=== PATIENT | female | born 1990 | race Caucasian/White ===

== ENCOUNTER 2021-04-21 11:43 | Outpatient (CLI) | payer OTHER, SELFPAY ==
--- NOTE | ~2021-04-21 | CT_ITS ---
EXAMINATION: CT brain wo con EXAM DATE: 04/21/2021 12:04 INDICATION: Headache behind the eyes. TECHNIQUE: Spiral CT of the head was performed without contrast. Axial, coronal and sagittal images were reviewed. The dose-length product (DLP) for this examination was 599.57 mGy-cm. The exposure w as tailored according to patient size, and iterative reconstruction (ASIR) was used as additional dos e reduction technique. There is no prior study for comparison. FINDINGS: There is no acute intraparenchymal hemorrhage. No evidence of intraparenchymal brain mass lesion. No evidence of acute infarction. There is no mass effect or midline shift. The ventricles are normal in size. There are no extra-axial collections. There are no acute calvarial fractures. T he orbits are unremarkable. Soft tissue is unremarkable. Completely opacified left sphenoid sinus, mild to moderate bilateral ethmoid and left maxillary sinus mucoperiosteal thickening. No mastoid opa city. IMPRESSION: 1. No acute intracranial findings. 2. Completely opacified left sphenoid sinus, mild to moderate bilateral ethmoid and left maxillary s inus mucoperiosteal thickening. Reviewed, dictated and finalized at location A. IMPRESSION: 1. No acute intracranial findings. 2. Completely opacified left sphenoid sinus, mild to moderate bilateral ethmoi d and left maxillary sinus mucoperiosteal thickening.
== END 2021-04-21 11:44 ==
PROVIDERS: PCP Family Medicine; Visit Provider Family Medicine
DX: R51.9 Headache, unspecified (principal); J32.4 Chronic pansinusitis
CPT/HCPCS: 70450

== ENCOUNTER 2023-02-24 20:54 | Emergency (ER) | payer OTHER, SELFPAY ==
--- NOTE | ~2023-02-24 | CT_ITS ---
EXAMINATION: CT abdomen pelvis w con INDICATION: Right-sided abdominal pain TECHNIQUE: Computed tomographic images of the abdomen and pelvis were obtained after the administrati on of 100 cc of Omnipaque 350 intravenous contrast. The dose-length product (DLP) was 1483.87 mGy-cm. Automated exposure control and iterative reconstruction technique were employed. COMPARISON: None available FINDINGS: The lung bases are clear. The heart size is normal. The liver, spleen, pancreas, gallbladde r, and adrenal glands are normal. The kidneys are unremarkable. An IVC filter is noted. No pathologic ally enlarged abdominal or pelvic lymph nodes are identified. No free intraperitoneal gas or evidence of bowel obstruction. The appendix is normal. An IUD is noted in expected position. IMPRESSION: 1. No CT correlate for the patient's symptoms. Reviewed, dictated and finalized at location F.
[2023-02-24 20:56] VITALS: BP 124/70; PULSE 72; RESP 15; TEMP 36.6; O2SAT 100
[2023-02-24 21:19] VITALS: PULSE 66; RESP 15; TEMP 36.3; O2SAT 96
--- NOTE | 2023-02-24 21:31 | PC.NURSE ---
Patient's bedside was inconclusive. Beta HCG added.
[2023-02-24 21:36] LABS: Appearance Urine Clear (Clear); Bacteria Urine None Seen /hpf; Bilirubin Urine Negative (Negative); Blood Urine Negative (Negative); Color Urine Yellow (Yellow); Glucose Urine UA Negative (Negative); Ketones Urine Negative (Negative); Leukocyte Esterase Ur Trace LEU/UL (Negative); Nitrate Urine Negative (Negative); Non Pathogenic Casts 0-2; Protein Urine Negative (Negative); RBC Urine 0-2 /hpf (0-2); Specific Grav Ur 1.023 (1.001-1.035); Squamous Epithelial Cell Urine None seen /hpf (Few); WBC Urine 0-5 /hpf; pH Urine 6.5 (5.0-9.0)
[2023-02-24 21:40] LABS: Add Urine Microscopic? YES
--- NOTE | 2023-02-24 21:52 | ED.ABDPAIN ---
HPI - Abdominal Pain General Chief Complaint: Abdominal Pain Stated Complaint: abdominal/flank pain Time Seen by Provider: 02/24/23 21:02 History of Present Illness HPI narrative: 32-year-old female presenting with right upper/lower quadrant pain, and some flank pain, she also feels like she has been going to the bathroom more than usual, she did also just finish a course of Keflex and Bactrim. Related Data Allergies Allergy/AdvReac Type Severity Reaction Status Date / Time No Known Allergies Allergy Verified 02/24/23 20:59 Review of Systems Review of Systems: CONST: No fever. HEENT: No sore throat C/V: No chest pain RESP: No cough GI: Reports abdominal pain, nausea : Increased frequency M/S: No joint pain. SKIN: No rash. NEURO: [No headache or focal numbness or weakness] PSYCH: [No depression] Exam Narrative: EXAMINATION OF ORGAN SYSTEMS/BODY AREAS: Constitutional: Vital signs per nursing GENERAL:[No acute distress, non-toxic appearing.] HEAD: Normal with no signs of head trauma. EYES: EOMI, conjunctiva normal ENT: Hearing grossly intact LUNGS: Nonlabored breathing. HEART: [Regular rate and rhythm] ABD: [Soft], slightly tender to palpation right upper quadrant and lower quadrant, some tenderness right flank EXT: Normal range of motion SKIN: [No rashes or lesions.] NEURO: [Alert and oriented x 3. No gross focal sensory or strength deficits.] PSYCH: Normal affect Course Vital Signs Vital signs: Vital Signs Temperature 97.8 F 02/24/23 20:56 Pulse Rate 72 02/24/23 20:56 Respiratory Rate 15 02/24/23 20:56 Blood Pressure 124/70 02/24/23 20:56 Pulse Oximetry 100 02/24/23 20:56 Oxygen Delivery Room Air 02/24/23 20:56 Temperature 97.9 F 02/24/23 23:47 Pulse Rate 61 02/24/23 23:47 Respiratory Rate 15 02/24/23 23:47 Blood Pressure 122/81 02/24/23 23:47 Pulse Oximetry 100 02/24/23 23:47 Oxygen Delivery Room Air 02/24/23 20:56 MDM - Abdominal Pain MDM Narrative Medical decision making narrative: Electronic medical record was reviewed. Patient presented to the ED with complaint of [abdominal pain and nausea with increased urinary frequency]. Vitals [were within acceptable limits]. Physical exam revealed [tenderness to palpation in right abdomen]. Based on the patient's history and physical exam, my differential includes but is not limited to [gastritis, gastroenteritis, cholecystitis, pancreatitis, appendicitis, UTI/pyelonephritis though this seems less likely given she has already completed 2 courses of antibiotics that should be effective for pyelonephritis]. [IV access was established by nursing staff. Patient was given zofran, Toradol]. CBC, BMP, lipase, LFTs, bilirubin and alk phos were obtained. Labs were pertinent for unremarkable labs. [Decision was made to obtain a CT-abdomen to evaluate for acute abdominal process. CT-abdomen is unremarkable for acute intra-abdominal process, no signs of hydronephrosis, cholecystitis, appendicitis.] On reevaluation, the patient states that they are feeling better. There were no witnessed episodes of vomiting in the emergency department. They are not complaining of any new abdominal pain. Repeat examination did not show any significant guarding or rebound. No new tenderness. At this time I do not feel there is any further emergent treatment to be provided. The patient was given strict return precautions, if they are to develop any worsening abdominal pain, vomiting, or blood in the vomit they are to return to the emergency department immediately. Patient verbally acknowledges understanding these directions. [The patient was informed of the above diagnostic test findings.] I have ordered a urine culture. They will be discharged home [with prescriptions]. They were advised to follow-up with [their PCP] in 2 days. The patient feels that this is appropriate medical decision making and verbalizes an understanding of the discharge inst
[2023-02-24] MEDS: ONDANSETRON INJ 4 MG/2 ML VIAL IV PUSH (21:53)
[2023-02-24 22:27] LABS: Alanine Aminotransferase 27 U/L (6-35); Albumin Level 4.2 g/dL (3.5-5.1); Alkaline Phosphatase 71 U/L (38-126); Anion Gap 6 mmol/L (8-16); Aspartate Amino Transferase 20 U/L (14-36); Bilirubin,Total 0.4 mg/dL (0.2-1.3); Blood Urea Nitrogen 15 mg/dL (7-17); Calcium 9.1 mg/dL (8.4-10.2); Carbon Dioxide 26 mmol/L (22-30); Chloride 102 mmol/L (98-107); Estimated CRCL calculation 135 ml/min; Estimated Glomerular Filt Rate > 60; Glucose 100 mg/dL (65-110); Lipase 81 U/L (23-300); Potassium 4.4 mmol/L (3.4-5.0); Sodium 134 mmol/L (137-145)
[2023-02-24 22:37] LABS: Beta HCG Quantitative < 2.39 mIU/ML
[2023-02-24 23:10] VITALS: BP 125/90; PULSE 72; RESP 16; O2SAT 100
[2023-02-24] MEDS: KETOROLAC 15 MG/ML VIAL (*BKC) IV PUSH (23:30)
[2023-02-24 23:47] VITALS: BP 122/81; PULSE 61; RESP 15; TEMP 36.6; O2SAT 100
[2023-02-24 23:58] LABS: Basophils Absolute Auto 0.1 K/mm3 (0.0-0.1); Basophils Percent Auto 0.8 % (0.2-1.2); Eosinophils Absolute Auto 0.3 K/mm3 (0-0.3); Eosinophils Percent Auto 3.5 % (0-4.4); Hematocrit 37.6 % (37.0-47.0); Hemoglobin 12.2 g/dL (12.0-15.0); Immature Granulocyte Absolute 0.03 K/mm3 (0.00-0.031); Immature Granulocyte Percent A 0.4 % (0-0.5); Lymphocytes Absolute Auto 2.75 K/mm3 (0.9-3.2); Lymphocytes Percent Auto 33.4 % (18.3-44.2); Mean Corpuscular HGB Conc 32.4 g/dl (32-36); Mean Corpuscular Hemoglobin 29.2 pg (26-34); Mean Platelet Volume 10.3 fl (7.4-10.4); Monocytes Absolute Auto 0.9 K/mm3 (0.1-0.6); Monocytes Percent Auto 10.8 % (2.6-8.5); Neutrophils Absolute Auto 4.2 K/mm3 (1.3-6.7); Neutrophils Percent Auto 51.1 % (45.5-73.1); Platelet Count Result 318 k/mm3 (150-375); Red Blood Count 4.18 M/mm3 (4.2-5.4); Red Cell Distribution Width 12.6 % (11.5-14.5); White Blood Count 8.2 K/mm3 (4.5-10.0)
== END 2023-02-24 23:48 | disposition home or self-care (01) ==
PROVIDERS: Emergency Provider Emergency Medicine; PCP Family Medicine
DX: R10.11 Right upper quadrant pain (principal); R10.31 Right lower quadrant pain; R11.0 Nausea
CPT/HCPCS: 36415; 74177; 80053; 81001; 83690; 84702; 85025; 96374; 96375; 99284; J1885; J2405; Q9967

== ENCOUNTER 2023-06-21 01:40 | Emergency (ER) | payer OTHER, SELFPAY ==
--- NOTE | ~2023-06-21 | CT_ITS ---
CT of the Abdomen and Pelvis: Indication: Abdominal pain Technique: 2.5 mm axial scans were obtained through the abdomen and pelvis following intravenous adm inistration of 100 cc of Omnipaque 350. Dose reduction technique was used on this scan by utilizing a utomated exposure control and iterative reconstruction technique. The dose-length product (DLP) was 1 409.15 mGy-cm. COMPARISON: 02/24/2023 Findings: Scans through the lung bases are unremarkable. The liver, spleen, pancreas, gallbladder, adrenals and kidneys are within normal limits. No evidence of aortic aneurysm. IVC filter in place. No lymphadenopathy. No bowel obstruction. Probable under distention of transverse colon rather than wall thickening. No a bscess or free air. No evidence for appendicitis. Images through the pelvis were performed. Urinary bladder unremarkable. IUD in place. 3.7 cm right ad nexal cyst present. No ascites. Impression: 3.7 cm right ovarian cyst. Suspected under distention of transverse colon rather than wall thickening. Correlate for any possibi lity of infectious/inflammatory colitis. Reviewed, dictated and finalized at [facility]. BOSS Impression: 3.7 cm right ovarian cyst. Suspected under distention of transverse colon rather than wall thickening. Cor relate for any possibility of infectious/inflammatory colitis.
[2023-06-21 01:44] VITALS: BP 145/81; PULSE 88; RESP 20; TEMP 36.9; O2SAT 98
--- NOTE | 2023-06-21 02:47 | ECG_ITS ---
Measurements Intervals [place] Rate: 78 P: -33 [place]: 130 QRS: -6 QRSD: 91 T: -3 QT: 377 QTc: 431 Interpretive Statements SINUS RHYTHM DELAYED PRECORDIAL R/S TRANSITION NONSPECIFIC T-WAVE ABNORMALITY- ANT/INF LEADS BASELINE ARTIFACT- I, II, III, AVR, AVF, V1 BORDERLINE ECG NO PREVIOUS ECG AVAILABLE FOR COMPARISON Electronically Signed On 06-21-2023 6:26:35 [employer] by Norm Mcdaniels D.O.
[2023-06-21 02:48] VITALS: BP 123/89; PULSE 79; RESP 13; TEMP 36.8; O2SAT 99
--- NOTE | 2023-06-21 02:49 | PC.NURSE ---
Patient states that she is COVID positive
[2023-06-21 03:10] LABS: Basophils Percent Auto 0.3 % (0.2-1.2); Eosinophils Absolute Auto 0.2 K/mm3 (0-0.3); Eosinophils Percent Auto 1.6 % (0-4.4); Hematocrit 42.1 % (37.0-47.0); Hemoglobin 13.7 g/dL (12.0-15.0); Immature Granulocyte Absolute 0.03 K/mm3 (0.00-0.031); Immature Granulocyte Percent A 0.3 % (0-0.5); Lymphocytes Percent Auto 15.5 % (18.3-44.2); Mean Corpuscular HGB Conc 32.5 g/dl (32-36); Mean Corpuscular Hemoglobin 28.8 pg (26-34); Mean Corpuscular Volume 88.6 fl (80-100); Mean Platelet Volume 9.7 fl (7.4-10.4); Monocytes Absolute Auto 0.9 K/mm3 (0.1-0.6); Monocytes Percent Auto 7.8 % (2.6-8.5); Neutrophils Absolute Auto 8.7 K/mm3 (1.3-6.7); Neutrophils Percent Auto 74.5 % (45.5-73.1); Platelet Count Result 300 k/mm3 (150-375); Red Blood Count 4.75 M/mm3 (4.2-5.4); Red Cell Distribution Width 12.2 % (11.5-14.5); White Blood Count 11.6 K/mm3 (4.5-10.0)
[2023-06-21 03:23] LABS: Alanine Aminotransferase 31 U/L (6-35); Albumin Level 2.4 g/dL (3.5-5.1); Alkaline Phosphatase 83 U/L (38-126); Anion Gap 9 mmol/L (8-16); Aspartate Amino Transferase 19 U/L (14-36); Bilirubin,Total 0.4 mg/dL (0.2-1.3); Blood Urea Nitrogen 7 mg/dL (7-17); Carbon Dioxide 23 mmol/L (22-30); Chloride 107 mmol/L (98-107); Estimated CRCL calculation 133 ml/min; Estimated Glomerular Filt Rate > 60; Glucose 101 mg/dL (65-110); Lipase 82 U/L (23-300); Potassium 3.8 mmol/L (3.4-5.0); Sodium 139 mmol/L (137-145)
[2023-06-21 03:29] VITALS: BP 116/73; PULSE 78; RESP 18; O2SAT 100
[2023-06-21] MEDS: SODIUM CHLORIDE 0.9% IV 1,000 ML 999 ML IV CONT (03:50)
[2023-06-21] MEDS: MORPHINE SULFATE (*CRX) 4 MG/ML INJ IV PUSH (03:51)
[2023-06-21] MEDS: ONDANSETRON INJ 4 MG/2 ML VIAL IV PUSH (03:51)
--- NOTE | 2023-06-21 03:56 | ED.GENADULT ---
HPI - General Adult General Chief complaint: Abdominal Pain Stated complaint: abd pain Time Seen by Provider: 06/21/23 03:26 History of Present Illness HPI narrative: 33-year-old female who presents to the emergency department with chief complaint abdominal pain. Patient reports she was recently diagnosed with COVID-19 reports that she started having pain in her upper abdomen patient reports it does radiate to her back patient reports he has had multiple bouts of diarrhea with this as well. Related Data Allergies Allergy/AdvReac Type Severity Reaction Status Date / Time No Known Allergies Allergy Verified 02/24/23 20:59 Review of Systems Review of Systems: A 10 system review of systems was completed on the patient and is negative except for what is stated in the HPI. Nursing and ancillary documentation was reviewed. Exam Narrative: GENERAL: Well-appearing, well-nourished, and in no acute distress. HEAD: Normocephalic, atraumatic. EYES: PERRLA and EOMI. ENT: Nares clear, no rhinorrhea or epistaxis. Mucous membranes moist. NECK: Supple. CHEST: Clear to auscultation. No respiratory distress. HEART: Regular rate and rhythm. No murmur heard. Normal peripheral pulses. ABDOMEN: Soft, tenderness to palpation in the epigastric region, nondistended, normal active bowel sounds. EXTREMITIES: Normal range of motion. No edema. SKIN: Warm, dry, no rash. NEURO: No focal deficits. Alert and oriented x3. PSYCH: Normal mood and affect. Course Vital Signs Vital signs: Vital Signs Temperature 36.9 C 06/21/23 01:44 Pulse Rate 88 06/21/23 01:44 Respiratory Rate 20 06/21/23 01:44 Blood Pressure 145/81 H 06/21/23 01:44 Pulse Oximetry 98 06/21/23 01:44 Temperature 36.8 C 06/21/23 02:48 Pulse Rate 73 06/21/23 05:16 Respiratory Rate 18 06/21/23 05:16 Blood Pressure 123/94 H 06/21/23 05:16 Pulse Oximetry 99 06/21/23 05:16 Medical Decision Making [facility] Narrative Medical decision making narrative: Differential diagnosis includes viral syndrome, ovarian cyst, appendicitis, gastroenteritis, diverticulitis Laboratory studies were obtained on the patient showed a white count of 11.6 electrolytes are within normal limits lipase was normal CT scan of the abdomen pelvis showed a ovarian cyst on the right as well as under distended bowel Patient is feeling much better still having some cramping patient discharged with prescription for Bentyl and Zofran Vital Signs Vital Signs: Vital Signs Temperature 36.9 C 06/21/23 01:44 Pulse Rate 88 06/21/23 01:44 Respiratory Rate 20 06/21/23 01:44 Blood Pressure 145/81 H 06/21/23 01:44 Pulse Oximetry 98 06/21/23 01:44 Temperature 36.8 C 06/21/23 02:48 Pulse Rate 73 06/21/23 05:16 Respiratory Rate 18 06/21/23 05:16 Blood Pressure 123/94 H 06/21/23 05:16 Pulse Oximetry 99 06/21/23 05:16 Lab Data 06/21/23 03:05 06/21/23 03:05 Labs: Lab Results 06/21/23 Range/Units 03:05 WBC 11.6 H (4.5-10.0) K/mm3 RBC 4.75 (4.2-5.4) M/mm3 Hgb 13.7 (12.0-15.0) g/dL Hct 42.1 (37.0-47.0) % MCV 88.6 (80-100) fl MCH 28.8 (26-34) pg MCHC 32.5 (32-36) g/dl RDW 12.2 (11.5-14.5) % Plt Count 300 (150-375) k/mm3 MPV 9.7 (7.4-10.4) fl Immature Gran % (Auto) 0.3 (0-0.5) % Neut % (Auto) 74.5 H (45.5-73.1) % Lymph % (Auto) 15.5 L (18.3-44.2) % [place] % (Auto) 7.8 (2.6-8.5) % Eos % (Auto) 1.6 (0-4.4) % Baso % (Auto) 0.3 (0.2-1.2) % Lymph # (Auto) 1.80 (0.9-3.2) K/mm3 [place] # (Auto) 0.9 H (0.1-0.6) K/mm3 Eos # (Auto) 0.2 (0-0.3) K/mm3 Baso # (Auto) 0.0 (0.0-0.1) K/mm3 Abs Immat Gran (auto) 0.03 (0.00-0.031) K/mm3 Absolute Neuts (auto) 8.7 H (1.3-6.7) K/mm3 Absolute Nucleated RBC 0.0 (0.0-0.012) K/mm3 Nucleated RBC % 0.0 (0.0-0.2) % Sodium 139 (137-145) mmol/L Potassium 3.8 (3.4-5.0) mmol/L Chloride 107 (98-107) mmol/L
[2023-06-21 05:16] VITALS: BP 123/94; PULSE 73; RESP 18; O2SAT 99
[2023-06-21 06:32] VITALS: BP 121/74; PULSE 69; RESP 13; TEMP 36.7; O2SAT 99
== END 2023-06-21 06:33 | disposition home or self-care (01) ==
PROVIDERS: Emergency Provider Emergency Medicine; PCP Family Medicine
DX: R10.9 Unspecified abdominal pain (principal); R19.7 Diarrhea, unspecified; N83.209 Unspecified ovarian cyst, unspecified side
CPT/HCPCS: 36415; 74177; 80053; 81025; 83690; 85025; 93005; 96361; 96374; 96375; 99284; J2270; J2405; J7030; Q9967

== ENCOUNTER 2023-08-24 07:32 | Emergency (ER) | payer OTHER, SELFPAY ==
[2023-08-24 07:41] VITALS: BP 136/84; PULSE 69; RESP 18; TEMP 36.8; O2SAT 100
--- NOTE | 2023-08-24 07:45 | ED.ALLEREA ---
HPI - Allergic Reaction General Chief complaint: Allergic Reaction Stated complaint: ?ALLERGIC RX AFTER CONTRAST YESTERDAY Time Seen by Provider: 08/24/23 07:38 History of Present Illness HPI narrative: Patient had CT with contrast yesterday, she has had this in the past without issues, however afterwards she said she was not feeling all the way right, when she woke up this morning she felt like her hands are more swollen than usual, she felt itching everywhere, and a sensation of tongue being bigger than usual. She had a similar sensation after she had morphine in the past for which she is allergic to. No trouble breathing, no throat tightness. no nausea or vomiting or diarrhea. No other new medications or foods. No chest pain. Related Data Allergies Allergy/AdvReac Type Severity Reaction Status Date / Time morphine Allergy Swelling Verified 08/24/23 07:43 Review of Systems Review of Systems: All systems reviewed & are unremarkable except as noted in HPI and below Exam Narrative: EXAMINATION OF ORGAN SYSTEMS/BODY AREAS: Constitutional: Vital signs per nursing GENERAL:[No acute distress, non-toxic appearing.] HEAD: Normal with no signs of head trauma. EYES: EOMI, conjunctiva normal ENT: Hearing grossly intact; normal-sounding voice. No evidence of swelling to lips or oropharynx. LUNGS: Nonlabored breathing. clear to auscultation bilaterally. HEART: [Regular rate and rhythm] ABD: [Soft], [nontender to palpation] EXT: Normal range of motion; Very slight swelling to both hands and feet SKIN: no obvious rashes or urticaria NEURO: [Alert and oriented x 3. No gross focal sensory or strength deficits.] PSYCH: Normal affect Course Vital Signs Vital signs: Vital Signs Temperature 98.2 F 08/24/23 07:41 Pulse Rate 69 08/24/23 07:41 Respiratory Rate 18 08/24/23 07:41 Blood Pressure 136/84 08/24/23 07:41 Pulse Oximetry 100 08/24/23 07:41 Temperature 98 F 08/24/23 09:32 Pulse Rate 70 08/24/23 09:32 Respiratory Rate 18 08/24/23 09:32 Blood Pressure 120/80 08/24/23 09:32 Pulse Oximetry 100 08/24/23 09:32 MDM - Allergic Reaction MDM Narrative Medical decision making narrative: MEDICAL DECISION MAKING AND COURSE IN THE ED WITH INTERPRETATION/REVIEW OF DIAGNOSTIC STUDIES: Electronic medical record was reviewed. Patient presented to the ED with a complaint of [possible allergic reaction]. Vitals [were within acceptable limits]. Physical exam revealed [ well-appearing patient with slightly swollen hands, without evidence of airway compromise, abdominal tenderness, or anaphylaxis]. Based on the patient's history and physical exam, my differential includes but is not limited to [allergic reaction, contact dermatitis, angioedema]. [Patient was given claritin, famotidine, steroids]. On re-evaluation, the patient isn't feeling much better; no new symptoms. I will order a dose of benadryl. On re-eval she again does not feel much better but also doesn't feel worse. She has not had worsening of symptoms here and she would like to go home at this time, she has normal VS and is in NAD, overall quite well-appearing, I do feel she is stable for discharge and will go home with claritin, famotidine, and prednisone and followup with PCP, return for further issues. I have let her know to make sure to give warning next time she needs a CT with contrast as she will need pre-treatment. I will also give her a rx for epi-pen in case symptoms return ore worsen. Patient verbalizes understanding. Discharge Plan Discharge Clinical Impression: Allergic reaction Patient Disposition: Home, Self-Care Condition: Stable Instructions: Antibiotic Form, General Allergic Reaction (ED) Additional Instructions: Please follow up with your doctor; you can always return for any further issues or if they worsen, especially if you have any difficulties breathing. Prescriptions: New prednisone 20
[2023-08-24] MEDS: LORATADINE 10 MG TABLET PO (07:50)
[2023-08-24] MEDS: FAMOTIDINE 20 MG TABLET PO (07:50)
[2023-08-24] MEDS: diphenhydrAMINE HCl CAP 25 MG CAPSULE 50 MG PO (08:59)
[2023-08-24 09:00] VITALS: BP 126/83; PULSE 68; RESP 18; O2SAT 99
[2023-08-24 09:32] VITALS: BP 120/80; PULSE 70; RESP 18; TEMP 36.6; O2SAT 100
== END 2023-08-24 09:33 | disposition home or self-care (01) ==
PROVIDERS: Emergency Provider Emergency Medicine; PCP Family Medicine
DX: T78.40XA Allergy, unspecified, initial encounter (principal); R22.33 Localized swelling, mass and lump, upper limb, bilateral; X58.XXXA Exposure to other specified factors, initial encounter
CPT/HCPCS: 99283; A9270; J8540

== ENCOUNTER 2024-11-19 16:04 | Emergency (ER) | payer OTHER, SELFPAY ==
[2024-11-19] VITALS (7 sets, daily range): BP systolic 109–139; BP diastolic 58–86; PULSE 60–67; RESP 13–20; TEMP 36.5; O2SAT 95–100
--- NOTE | ~2024-11-19 | US_ITS ---
EXAMINATION: US venous doppler LE RT DATE: 11/19/2024 17:00 INDICATION: Right lower limb pain TECHNIQUE: Grayscale ultrasound images without and with compression and Doppler ultrasound images of the right lower extremity veins were obtained. COMPARISON: None. FINDINGS: Occlusive deep venous thrombosis with no flow on color Doppler within the noncompressible right poste rior tibial and peroneal veins at the calf. The visualized portions of right common femoral vein, pro eva (deep) femoral vein, femoral vein, popliteal vein, gastrocnemius vein and greater saphenous vei n outflow are patent. IMPRESSION: 1. [id number] deep venous anastomosis in the right posterior tibial and peroneal veins. Dr. Felicita stephens discussed these findings with Dr. Montgomery at 5:10 PM. Reviewed, dictated and finalized at location B. IMPRESSION: 1. [id number] deep venous anastomosis in the right posterior tibial and pe roneal veins. Dr. Pozo discussed these findings with Dr. Montgomery at 5:10 PM.
--- NOTE | ~2024-11-19 | CT_ITS ---
Clinical Indication: DVT, pulmonary embolus CT Scan of the Chest with Contrast: Technique: Contiguous sections were acquired throughout the chest after intravenous administration of 100 cc of Omnipaque 350. Dose reduction technique was used on this scan by utilizing automated expos ure control and iterative reconstruction technique. The dose-length product (DLP) was 572.05 mGy-cm. Findings: There is no evidence of any significant mediastinal, hilar or axillary lymphadenopathy. There is no f illing defect in the pulmonary arterial tree to suggest pulmonary embolus. There is no evidence of ao rtic dissection or aneurysm. There is no evidence of pleural or pericardial effusion. The lungs are clear. No pulmonary nodules or infiltrates are noted. Images through the upper abdomen reveal no abnormalities. Impression: No evidence of pulmonary embolus, aortic dissection, or aortic aneurysm. Clear lungs. Reviewed, dictated and finalized at [facility]. Impression: No evidence of pulmonary embolus, aortic dissection, or aortic aneurysm. Clear lungs.
[2024-11-19 17:28] LABS: Basophils Absolute Auto 0.1 K/mm3 (0.0-0.1); Basophils Percent Auto 0.8 % (0.2-1.2); Eosinophils Absolute Auto 0.3 K/mm3 (0-0.3); Eosinophils Percent Auto 2.8 % (0-4.4); Hematocrit 40.3 % (37.0-47.0); Immature Granulocyte Absolute 0.04 K/mm3 (0.00-0.031); Immature Granulocyte Percent A 0.4 % (0-0.5); Lymphocytes Absolute Auto 2.65 K/mm3 (0.9-3.2); Lymphocytes Percent Auto 28.7 % (18.3-44.2); Mean Corpuscular HGB Conc 32.3 g/dl (32-36); Mean Corpuscular Hemoglobin 28.5 pg (26-34); Mean Corpuscular Volume 88.4 fl (80-100); Mean Platelet Volume 9.8 fl (7.4-10.4); Monocytes Absolute Auto 0.7 K/mm3 (0.1-0.6); Monocytes Percent Auto 7.4 % (2.6-8.5); Neutrophils Absolute Auto 5.5 K/mm3 (1.3-6.7); Neutrophils Percent Auto 59.9 % (45.5-73.1); Platelet Count Result 330 k/mm3 (150-375); Red Blood Count 4.56 M/mm3 (4.2-5.4); Red Cell Distribution Width 12.4 % (11.5-14.5); White Blood Count 9.2 K/mm3 (4.5-10.0)
--- NOTE | 2024-11-19 17:30 | ECG_ITS ---
Test Date: 2024-11-19 17:51:35 Measurements Intervals [place] Rate: 69 P: 12 [place]: 166 QRS: -17 QRSD: 89 T: -6 QT: 381 QTc: 411 Interpretive Statements SINUS RHYTHM VOLTAGE CRITERIA FOR LVH BORDERLINE R WAVE PROGRESSION, ANTERIOR LEADS INFERIOR INFARCT, AGE INDETERMINATE BORDERLINE T WAVE ABNORMALITY- ANTERIOR LEADS BASELINE ARTIFACT- I, II, III, AVR, AVL, AVF, V1-V2 ABNORMAL ECG No previous ECG available for comparison Electronically Signed On 11-19-2024 20:11:21 CDT by Norm Mcdaniels D.O.
[2024-11-19 17:44] LABS: Alanine Aminotransferase 22 U/L (6-35); Albumin Level 4.3 g/dL (3.5-5.1); Alkaline Phosphatase 87 U/L (38-126); Anion Gap 8 mmol/L (4-12); Aspartate Amino Transferase 16 U/L (14-36); Bilirubin,Total 0.5 mg/dL (0.2-1.3); Blood Urea Nitrogen 17 mg/dL (7-17); Calcium 9.3 mg/dL (8.4-10.2); Carbon Dioxide 25 mmol/L (22-30); Chloride 104 mmol/L (98-107); Estimated CRCL calculation 126 ml/min; Estimated Glomerular Filt Rate > 60; Glucose 95 mg/dL (65-110); Potassium 4.4 mmol/L (3.4-5.0); Prothrombin Time 13.2 Seconds (11.1-14.7); Sodium 137 mmol/L (137-145)
[2024-11-19 17:45] LABS: Partial Thromboplastin Time 26.4 Seconds (22.3-36.8)
[2024-11-19 17:51] LABS: Troponin I < 0.012 ng/mL (0.000-0.034)
--- OUTSIDE RECORDS SUMMARY | 2024-11-19 18:07 | XMS_ITS | Clinical Summary ---
Author Organization [facility] Address [address] [place] [address] Phone Care Team Providers Care Swimming Pool Serviceperson Name Role Phone Bong Garcia MD Primary Care Provider [phone] Payton Francisco DO Unavailable Unavailable Allergies No known active allergies Medications Eliquis 5 MG Tablet 2 times daily. 02/01/2023 Active Family History Relation Name Status Comments Brother Alive Child Alive Father Alive Mother Alive Social History Tobacco Use Types Packs/Day Years Used Date Smoking Tobacco: Never Smokeless Tobacco: Never Alcohol Use Standard Drinks/Week Comments Never 0 (1 standard drink = 0.6 oz pur e alcohol) Comments Unknown Sex and Gender Information Value Date Recorded Sex Assigned at Not on file Legal Sex Female 9:06 AM CDT Gender Identity Not on file Sexual Orientation Not on file Last Filed Vital Signs Vital Sign Reading Time Taken Comments Blood Pressure 110/64 02/02/2023 9:01 AM CDT Pulse 57 02/02/2023 9:01 AM CDT Temperature 36.4 C (97.6 F) 02/02/2023 9:01 AM CDT Respiratory Rate 18 02/02/2023 9:01 AM CDT Oxygen Saturation 98% 02/02/2023 9:01 AM CDT Inhaled Oxygen Concentration - - Weight 107.6 kg (237 lb 3.2 oz) 02/02/2023 9:01 AM CDT Height 162.6 cm (5' 4 ) 02/02/2023 9:01 AM CDT Body Mass Index 40.72 02/02/2023 9:01 AM CDT Plan of Treatment Health Maintenance Due Date Last Done Comments Hepatitis C Virus (HCV) Screening 1989 Pap Smear 2010 Cervical Cancer Screening (CCS) 2019 HPV/Cotest 2019 Influenza Immunization (#1) 2024 11/0 10/2020, 05/12/2020, 05/12/2019 SARS-COV-2 Immunization (2023- season) 2024 Respiratory Syncytial Virus (RSV) Immunization (Adult) (1 - 1-dose 75+ series) 2064 Hepatitis B Immunization Completed 000, 11/02/1999, 08/30/1999 DTaP/Tdap/Td Immunization Discontinued 2020, 03/16/1994, 09/19/1990, Additional history exists TdaP Immunization Completed 05/27/2021 Meningococcal Immunization (ACWY) Aged Out No longer eligible based on patient's age to complete this topic Pneumococcal Immunization Combined Aged Out No longer eligible based on patient's age to complete this topic Rotavirus Immunization Aged Out No lo nger eligible based on patient's age to complete this topic Insurance [id number] [place] [id number] MEDICAID AETNA [facility] Care Teams Swimming Pool Serviceperson Relationship Specialty [place] [id number] [place] [address] PCP - General Family Medicine 01/06/23 [place] [id number] [place] [address] Family Medicine 01/06/23
--- OUTSIDE RECORDS SUMMARY | 2024-11-19 18:07 | XMS_ITS | Referral Summary ---
Author Organization [facility] Address [address] [place] [address] Care Team Providers Care Websphere Process Server Developer Name Role Phone Bong Garcia MD Primary Care Provider [phone]- [phone] Allergies Active Allergy Reactions Criticality Noted Date Comments Iodinated Contrast Media Swelling High 11/30/2023 Morphine Swelling,Rash Medium 06/29/2023 Medications apixaban (ELIQUIS) 5 mg tabletIndications: DVT r leg, PE 3 years ago Take 1 tablet (5 mg total) by mouth 2 (two) times a day 12/28/19 23 Active traZODone (DESYREL) 100 mg tabletIndications: Sleep Take 1 tablet (100 mg total) by mouth nightly as needed for sleep 02/16/20 20 Active levonorgestreL (MIRENA) IUDIndications:Pre gnancy Contraception 1 each by intrauterine route once Placed November 2022 Active ibuprofen 200 mg tab/capIndications :Anti-inflammatory ,Pain Take 2 tablet/capsule (400 mg total) by mouth every 8 (eight) hours as needed for pain Active albuterol HFA (PROVENTIL HFA,VENTOLIN HFA,PROAIR HFA) 90 mcg/actuation inhalerIndications :Chest Congestion Inhale every 4 (four) hours as needed for wheezing 12/14/19 24 Active phenazopyridine (PYRIDIUM) 100 mg tablet Take 1 tablet (100 mg total) by mouth 3 (three) times a day as needed for urinary pain 30 tablet 2 02/06/20 Active ondansetron ODT (ZOFRAN-ODT) 4 mg disintegrating tablet Take 1 tablet (4 mg total) by mouth every 8 (eight) hours as needed for nausea or vomiting 20 tablet 03/06/20 Active famotidine (PEPCID) 20 mg tablet Take 1 tablet (20 mg total) by mouth 2 (two) times a day 30 tablet 03/06/20 Active Additional Information Patient not taking.Reported on 04/01/2024 Active Problems Problem Noted Date Diagnosed Date Saddle 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, unspecified chronicity 01/02/2024 Obesity, morbid 01/02/2024 Presence of IVC filter 12/19/2023 Chronic venous insufficiency 07/11/2023 Loose body of left knee 05/25/2023 Resolved Problems Problem Noted Date Diagnosed Date Resolved Date Therapeutic drug monitoring 05/16/2019 01/13/2020 Acute deep vein thrombosis ( DVT) of lower extremity, unspecified laterality, unspecified vein 05/16/2019 01/13/2020 Acute pulmonary embolism, un specified pulmonary embolism type, unspecified whether acute cor pulmonale present 05/16/2019 01/13/2020 Immunizations Immunization Administration Dates Next Due DTaP 03/16/1994, 1,1989,08/04,1989 Hep B, Adolescent or Pediatric 04/25/2000,1999,08/30/1999 HiB 06/26/1990 Influenza, Quadrivalent, Spl it, Preservative Free, Intramuscular 05/27/2021,05/12/2019 Influenza, Unspecified 05/12/2020 MMR 03/16/1994,06/26/1990,03/16/1990 OPV 03/16/1994, 1,1989,05/29 Tdap 05/27/2021,12/05/2018 Social History Tobacco Use Types Packs/Day Years Used Date Smoking Tobacco: Never Passive Smoke Exposure: Never Smokeless Tobacco: Never Tobacco Cessation:Counseling Given: Not Answered Alcohol Use Standard Drinks/Week Comments Never 0 (1 standard drink = 0.6 oz pur e alcohol) AUDIT-C Answer Date Recorded Q1: How often do you have a drink containing alc ohol? Monthly or less 12/20/2023 Q2: How many drinks containi ng alcohol do you have on a typical day when you are drinking? 3 or 4 12/20/2023 Q3: How often do you have si x or more drinks on one occasion? Less than monthly 12/20/2023 Hunger Vital Sign Answer Date Recorded Within the past 12 months, y ou worried that your food would run out before you got the money to buy more. Patient declined Within the past 12 months, t he food you bought just didn't last and you didn't have money to get more. Patient declined 04/2024 Personal Safety Answer Date Recorded Have you ever been in or are you currently in a harmful physical or emotional relationship or is someone making you feel afraid or unsafe? Denies 03/06/2024 Comments No Sex and Gender Information Value Date Recorded Sex Assigned at Not on file Legal Sex Female 1:08 PM BILINGUAL SECRETARY Gender Identity Not on file Sexual Orientation Not on file Last Filed Vital Signs Vital Sign Reading Time Taken Comments Blood Pressure 118/83 08/08/2024 9:20 AM BILINGUAL SECRETARY Pulse 61 08/08/2024 9:20 AM BILINGUAL SECRETARY Temperature 36.2 C (97.2 F) 08/08/2024 9:20 AM BILINGUAL SECRETARY Respiratory Rate 18 08/08/2024 9:20 AM BILINGUAL SECRETARY Oxygen Saturation 98% 08/08/2024 9:20 AM BILINGUAL SECRETARY Inhaled Oxygen Concentration - - Weight 108 kg (238 lb) 08/08/2024 9:17 AM BILINGUAL SECRETARY Height 162.6 cm (5' 4 ) 08/08/2024 9:20 AM BILINGUAL SECRETARY Body Mass Index 40.85 08/08/2024 9:17 AM BILINGUAL SECRETARY Plan of Treatment Not on file Medical Devices Implanted Type Area Spike Maker Device Identifier Shelf Expiration Date Model / Serial / Lot Ivc Filter Explanted:Qty: 1 on 01/02/2024 by Sofia Rudd MD PhD IVC Filter Left: Vena Cava Iud N/A: Uterus Insurance [facility] CHOICE PLUS [employer] BETTER [facility] Advance Directives For more information, please contact: [phone] * Full Code (Latest Code Status on File) Date Activated Date Inactivated Comments 05/21/2019 7:47 PM 05/22/2019 6:28 PM * Full Code Date Activated Date Inactivated Comments 12/11/2018 8:10 PM 12/14/2018 9:40 PM * Full Code Date Activated Date Inactivated Comments 12/10/2018 9:09 PM 12/11/2018 8:10 PM Full CPR in case of cardiopulmonary arrest Care Teams Websphere Process Server Developer Relationship Specialty [place] [address] [place] [address] PCP - General Family Practice 02/08/23
--- OUTSIDE RECORDS SUMMARY | 2024-11-19 18:07 | XMS_ITS | Clinical Summary ---
Author Organization [facility] Address [address] [facility] [address] Care Team Providers Care Direct Service Worker Name Role Phone Bong Garcia MD Primary Care Provider [phone]- [phone] Allergies Active Allergy Reactions Criticality Noted Date [...] MMR 03/16/1994,06/26/1990,03/16/1990 OPV 03/16/1994, 1,1989,05/29 Tdap 05/27/2021,12/05/2018 Surgical History Surgery Date Site/Laterality Comments INSERT VENA CAVA FILTER 07/24/2018 - 07/23/2019 Left KNEE ARTHROSCOPY 06/29/2023 Left REMOVAL CHONDROPLASTY/LOOSE BODY RADIOFREQUENCY ABLATION 07/31/2023 Leg Veins REMOVE VENA CAVA FILTER 01/02/2024 Medical History Medical History Date Comments Depression GERD (gastroesophageal reflux disease) Dyspepsia DVT of leg (deep venous thrombosis) (HCC) Pulmonary embolism (HCC) 05/12/2019 S/P insertion of IVC (inferior vena caval) filte r 05/16/2019 Motion sickness PONV (postoperative nausea and vomiting) Gestational diabetes Family History Medical History Relation Name Comments Diabetes Father Anesthesia problems Neg Hx Relation Name Status Comments Father Social History Tobacco Use Types Packs/Day Years [...] on file Legal Sex Female 1:08 PM GIS MANAGER Gender Identity Not on file Sexual Orientation Not on file Obstetrics History Para Term AB IAB SAB Ectopic Multiple Livin g Live Births 1 1 1 0 1 1 Date Outcome GA Total Labor Labor/2nd/3rd Weight Sex Type Anes PTL Sharona A1 A5 Name Clin 2018 35w 4d 0h 44m 0h 40m/0h 04m 2.54 kg (5 lb 9.6 oz) F Vag-S pont Epidur al N Livin g 8 9 LUCIAN ,GIRL Tyson Dove MD Complications:Pre eclampsia, Induced Hypertension Delivery Location:[facility] Last Filed Vital Signs Vital Sign Reading Time Taken Comments Blood Pressure 118/83 08/08/2024 9:20 AM GIS MANAGER Pulse 61 08/08/2024 9:20 AM GIS MANAGER Temperature 36.2 C (97.2 F) 08/08/2024 9:20 AM GIS MANAGER Respiratory Rate 18 08/08/2024 9:20 AM GIS MANAGER Oxygen Saturation 98% 08/08/2024 9:20 AM GIS MANAGER Inhaled Oxygen Concentration - - Weight 108 kg (238 lb) 08/08/2024 9:17 AM GIS MANAGER Height 162.6 cm (5' 4 ) 08/08/2024 9:20 AM GIS MANAGER Body Mass Index 40.85 08/08/2024 9:17 AM GIS MANAGER Plan of Treatment Health Maintenance Due Date Last Done Comments Cervical Cancer Screening 1989 Depression Screening 1989 Hepatitis C Screening 1989 Varicella Vaccines (1 of 2 - 13+ 2-dose series) 2002 Regular Well Visit/Exam 18-64 2007 Influenza Vaccine (Season Ended) 2025 05/27/2021, 05/12/2020, 05/12/2019 DTaP/Tdap/Td Vaccine (8 - Td or Tdap) 05/27/2031 05/27/2021, 12/05/2018, 03/16/1994, Additional history exists Hepatitis B Screening Completed 04/25/2000 , 11/02/1999, 08/30/1999 HPV Vaccines Aged Out No longer eligi ble based on patient's age to complete this topic Pneumococcal vaccine <65 Aged Out No longer eligible based on patient's age to complete this topic Medical Devices Implanted Type Area Rib Cutter Device Identifier Shelf Expiration Date Model / Serial / Lot Ivc Filter Explanted:Qty: 1 on 01/02/2024 by Sofia Rudd MD PhD IVC Filter Left: Vena Cava Iud N/A: Uterus Insurance [facility] Address: [address] [address] [place] [address] [place] Advance Directives For more information, please contact: [phone] * Full Code (Latest Code Status on File) Date Activated Date Inactivated Comments 05/21/2019 7:47 PM 05/22/2019 6:28 PM * Full Code Date Activated Date Inactivated Comments 12/11/2018 8:10 PM 12/14/2018 9:40 PM * Full Code Date Activated Date Inactivated Comments 12/10/2018 9:09 PM 12/11/2018 8:10 PM Full CPR in case of cardiopulmonary arrest Care Teams Direct Service Worker Relationship Specialty [place] [address] [place] [address] PCP - General Family Practice 02/08/23
--- OUTSIDE RECORDS SUMMARY | 2024-11-19 18:07 | XMS_ITS | Encounter Summary ---
Author Organization [facility] Address [address] [place] [address] Phone Care Team Providers Care Cleaning Handyman Name Role Phone Bong Garcia MD Primary Care Provider +1- [phone] Payton Francisco DO Unavailable Unavailable Reason for Visit * Reason Onset Date Comments Prior Authorization 02/21/2023 Ct a/p order Encounter Details Date Type Department Care Team (Late st Contact Info) Description 02/21/2023 Telephone [facility] [address] [address] Aleks Garcia MD [address] [place] [phone] Prior Authorization (Ct a/p order) Social History Tobacco Use Types Packs/Day Years Used Date Smoking Tobacco: Never Smokeless Tobacco: Never Alcohol Use Standard Drinks/Week Comments Never 0 (1 standard drink = 0.6 oz pur e alcohol) Comments Unknown Sex and Gender Information Value Date Recorded Sex Assigned at Not on file Legal Sex Female 9:06 AM CDT Gender Identity Not on file Sexual Orientation Not on file COVID-19 Exposure Response Date Recorded In the last 10 days, have yo u been in contact with someone who was confirmed or suspected to have Coronavirus/COVID-19? No / Unsure 02/02/2023 8:46 AM CDT documented as of this encounter Miscellaneous Notes * Telephone Encounter - Carol Ann Us - 02/21/2023 1:27 PM CDT Images from the original note were not included. Aleks Garcia MD Whittington, Melissa J.; C[facility] 8 minutes ago (1:18 PM) MW Needs one with contrast , so keep noted * Telephone Encounter - Steph Gonsalez - 02/21/2023 11:[address] a/p was ordered on 02/02 and scheduled for 02/27 in our office. However patient had a ct a/p while in the ER on 02/02 per info in chart. Do you still need the ct a/p on 02/27 completed since one was done on 02/02? documented in this encounter Plan of Treatment Not on file documented as of this encounter Visit Diagnoses Not on filedocumented in this encounter Care Teams Cleaning Handyman Relationship Specialty [place] [address] [place] [address] PCP - General Family Medicine 01/06/23 [place] [address] [place] [address] Family Medicine 01/06/23 documented as of this encounter
[2024-11-19 18:08] LABS: NT Pro B Type Natriuretic Pept 40 pg/mL (19.9-100)
--- NOTE | 2024-11-19 19:08 | ED_ITS ---
HPI - Extremity Problem General Chief complaint: Extremity Problem,Nontraumatic Stated complaint: Right leg pain-Hx of DVT Time Seen by Provider: 11/19/24 17:10 Source: patient and old records reviewed Mode of arrival: ambulatory Limitations: no limitations History of Present Illness HPI Narrative: Patient is a 34-year-old female who presents the ED with report of right leg pain. Patient reports she has been having pain in her right posterior distal thigh/popliteal region since Monday. She was doing a lot of walking that they thought she may have strained her leg. Symptoms have not improved. She has history of previous right lower extremity DVT and subsequent PE 5 years ago. This occurred after she deliver a and was restarted on control. She was also later found to after 5 Leiden. She follows with a senior scrum master at [facility]. She is on Eliquis 5 mg daily, but notes that she did miss several doses a few weeks ago as she ran out of her prescription. She denies any numbness or weakness of leg, chest pain or shortness of breath. Related Data Allergies Allergy/AdvReac Type Severity Reaction Status Date / Time Iodinated Contrast Media Allergy Swelling Verified 11/19/24 17:24 morphine Allergy Swelling Verified 11/19/24 17:24 Review of Systems 2 Review of Systems: All systems reviewed & are unremarkable except as noted in HPI. All systems reviewed & are unremarkable except as noted in HPI and below Exam 2 Narrative: GENERAL: Well appearing, morbidly obese with BMI of 40.1, non-toxic, in no acute distress. HEAD: Normocephalic, atraumatic. RESPIRATORY: Airway patent, respirations nonlabored. Clear to auscultation bilaterally, no rales, rhonchi, wheezing. CARDIOVASCULAR: Regular rate and rhythm without murmurs, rubs, or gallops. Pedal pulses are intact and easily palpable. MUSCULOSKELETAL: Moves all extremities. No gross deformities. Mild tenderness to palpation in posterior distal thigh region, just proximal to popliteal region. No induration noted or palpated. Minimal warmth. No significant redness or erythema. Slight diffuse swelling throughout right lower extremity compared to left. No tenderness throughout calf region. Sensation intact throughout extremity. SKIN: Warm, dry, normal color. NEURO: A&O X3. Speech clear. No ataxic movements. PSYCHIATRIC: Mildly anxious. Normal interaction. Course Vital Signs Vital signs: Vital Signs Temperature 97.7 F 11/19/24 16:16 Pulse Rate 62 11/19/24 16:16 Respiratory Rate 16 11/19/24 16:16 Blood Pressure 139/86 11/19/24 16:16 Pulse Oximetry 100 11/19/24 16:16 Oxygen Delivery Room Air 11/19/24 16:16 Temperature 97.7 F 11/19/24 16:16 Pulse Rate 66 11/20/24 02:01 Respiratory Rate 17 11/20/24 02:01 Blood Pressure 119/69 11/20/24 02:01 Pulse Oximetry 95 11/20/24 02:01 Oxygen Delivery Room Air 11/19/24 16:16 MDM - Extremity (Nontraumatic) MDM Narrative Medical decision making narrative: Patient presented to ED with 3 day history of pain throughout her right posterior thigh. History of previous DVT in right lower extremity, factor 5 Leiden. Currently on Eliquis, but has missed several doses recently. Vital signs are stable upon arrival. Patient is not tachycardic or hypoxic. Denying CP or SOB. Venous Doppler US of RLE was obtained from triage and is positive for below the knee DVT in R posterior tibial /peroneal veins. Consistent with clinical picture. Patient updated on imaging findings. Laboratory studies were obtained and reassuring. EKG without ischemic changes. Troponin undetectable. BNP within normal range. Will restart patient on her Eliquis at 10 mg b.i.d. for the next 1 week. Do feel this is appropriate given the patient has missed several doses and has history of underlying clotting disorder, likely causing recurrent clot. Patient is denying chest pain or shortness of breath at this time, but does report history of previous PE. She is very worried about having a recurrent PE. Discussed obtaining chest imaging and patient would like to proceed with CTA of the chest. Patient has a documented contrast allergy here. In the records, she has received IV contrast here twice before, but she reports she has since had an allergic reaction at an outside facility. Will start 4 hour premedication regimen. Discussed this with CT. Patient is in agreement with this plan for premedication. Patient given dose of Solu-Cortef 200 mg IV push 4 hours prior to procedure, Benadryl 50 mg IV push 1 hour prior to procedure. CTA chest negative. No PE. Patient will be discharged. She feels comfortable with this. Given strict return precautions. D/C in stable condition. VS have remained stable throughout ED stay. Medical Records Attestation: I reviewed the patient's medical records. Lab Data Attestation: I reviewed the patient's lab results. 11/19/24 17:20 11/19/24 17:20 Labs: Lab Results 11/19/24 11/19/24 Range/Units 17:20 17:20 WBC 9.2 (4.5-10.0) K/mm3 RBC 4.56 (4.2-5.4) M/mm3 Hgb 13.0 (12.0-15.0) g/dL Hct 40.3 (37.0-47.0) % MCV 88.4 (80-100) fl MCH 28.5 (26-34) pg MCHC 32.3 (32-36) g/dl RDW 12.4 (11.5-14.5) % Plt Count 330 (150-375) k/mm3 MPV 9.8 (7.4-10.4) fl Immature Gran % (Auto) 0.4 (0-0.5) % Neut % (Auto) 59.9 (45.5-73.1) % Lymph % (Auto) 28.7 (18.3-44.2) % [place] % (Auto) 7.4 (2.6-8.5) % Eos % (Auto) 2.8 (0-4.4) % Baso % (Auto) 0.8 (0.2-1.2) % Lymph # (Auto) 2.65 (0.9-3.2) K/mm3 [place] # (Auto) 0.7 H (0.1-0.6) K/mm3 Eos # (Auto) 0.3 (0-0.3) K/mm3 Baso # (Auto) 0.1 (0.0-0.1) K/mm3 Abs Immat Gran (auto) 0.04 H (0.00-0.031) K/mm3 Absolute Neuts (auto) 5.5 (1.3-6.7) K/mm3 Absolute Nucleated RBC 0.000 (0.0-0.012) K/mm3 Nucleated RBC % 0.0 (0.0-0.2) % PT 13.2 (11.1-14.7) Seconds INR 1.0 APTT 26.4 (22.3-36.8) Seconds Sodium 137 (137-145) mmol/L Potassium 4.4 (3.4-5.0) mmol/L Chloride 104 (98-107) mmol/L Carbon Dioxide 25 (22-30) mmol/L Anion Gap 8 (4-12) mmol/L BUN 17 (7-17) mg/dL Creatinine 0.63 L (0.7-1.0) mg/dL Estim Creat Clear Calc 126 ml/min Estimated GFR > 60 (59 - ) Glucose 95 (65-110) mg/dL Calcium 9.3 (8.4-10.2) mg/dL Total Bilirubin 0.5 (0.2-1.3) mg/dL AST 16 (14-36) U/L ALT 22 (6-35) U/L Alkaline Phosphatase 87 (38-126) U/L Troponin I < 0.012 (0.000-0.034) ng/mL NT-Pro-B Natriuret Pep 40 Cancelled (19.9-100) pg/mL Total Protein 8.0 (6.3-8.2) g/dL Albumin 4.3 (3.5-5.1) g/dL Imaging Data Attestation: I personally reviewed and interpreted this imaging study as follows: Radiologist's impression: STAT RAD CTA chest: Impression: Motion artifact mildly limits evaluation. Despite this, no evidence of pulmonary embolism within the pulmonary outflow tractor proximal branches. Small hiatal hernia. No other acute findings. ECG Data EKG #1: Attestation EKG: I personally reviewed and interpreted this ECG as follows: ECG completion date: 11/19/24 ECG completion time: 17:51 EKG Interpretation: normal rate (69), sinus rhythm and non-specific ST changes Discharge Plan Discharge Clinical Impression: Factor 5 Leiden mutation, heterozygous Deep vein thrombosis of lower extremity Qualifiers: Affected thrombotic vein of extremity: peroneal Chronicity: acute Laterality: r ight Qualified Code(s): I82.451 - Acute embolism and thrombosis of right peroneal vein Patient Disposition: Home Condition: Stable Instructions: Antibiotic Form, Deep Vein Thrombosis (ED), Deep Vein Thrombosis Prevention (ED) Additional Instructions: Take Eliquis 10 mg twice daily over the next 1 week. Then continue 5 mg dose twice daily indefinitely. Follow-up with your primary care doctor and senior scrum master for further evaluation. Return to the ED if you experience worsening or severe pain or swelling in legs, chest pain, difficulty breathing, unable to keep down food or drink, coughing blood, persistent fevers, or any other symptoms of concern. Patient Language: [place] Prescriptions: [place] DVT-PE Treat 30D Start 5 mg (74 tabs) tablets,dose pack See Rx Instructions .ROUTE .COMPLEX Qty: 74 0RF Rx Instructions: orally per package directions No Action acetaminophen [Tylenol Extra Strength] 500 mg tablet 1,000 mg PO Q6H PRN (Reason: pain) Qty: 50 0RF dicyclomine 20 mg tablet 20 mg PO TID Qty: 30 0RF ondansetron 4 mg tablet,disintegrating 4 mg PO Q8H PRN (Reason: nausea and vomiting) Qty: 10 0RF ibuprofen 600 mg tablet 600 mg PO TID PRN (Reason: fever or pain) Qty: 30 0RF dicyclomine 20 mg tablet 20 mg PO QID PRN (Reason: abdominal discomfort) Qty: 20 0RF ondansetron 4 mg tablet,disintegrating 4 mg PO Q8H PRN (Reason: nausea and vomiting) Qty: 10 0RF dicyclomine 20 mg tablet 20 mg PO TID Qty: 14 0RF loperamide [Anti-Diarrheal (loperamide)] 2 mg capsule 2 mg PO Q6H PRN (Reason: loose stool) Qty: 6 0RF prednisone 20 mg tablet 40 mg PO DAILY 5 Days Qty: 10 0RF famotidine 20 mg tablet 20 mg PO DAILY Qty: 5 0RF loratadine 10 mg tablet 10 mg PO DAILY Qty: 5 0RF epinephrine [EpiPen] 0.3 mg/0.3 mL auto-injector 0.3 mg IM ONCE PRN (Reason: anaphylaxis) Qty: 2 0RF Rx Instructions: as a single dose; may repeat once. Go straight to the ER after using. Follow-up/Referrals: Radha,Bong Wise MD [Primary Care Provider] - Time of Disposition: 19:43
[2024-11-19] MEDS: HYDROCORTISONE SODIUM SUCCINATE 100 MG/2 ML VIAL 200 MG IV PUSH (20:18)
[2024-11-19] MEDS: diphenhydrAMINE HCl INJ 50 MG/ML VIAL IV PUSH (23:18)
[2024-11-20] VITALS (7 sets, daily range): BP systolic 114–131; BP diastolic 69–92; PULSE 63–83; RESP 15–22; O2SAT 95–98
[2024-11-20] MEDS: APIXABAN 5 MG TABLET PO (03:01)
== END 2024-11-20 03:12 | disposition home or self-care (01) ==
PROVIDERS: Emergency Provider Physician Assistant; PCP Family Medicine
DX: I82.451 Acute embolism and thrombosis of right peroneal vein (principal); D68.51 Activated protein C resistance; R94.31 Abnormal electrocardiogram [ECG] [EKG]; Z86.718 Personal history of other venous thrombosis and embolism; Z79.01 Long term (current) use of anticoagulants; Z86.711 Personal history of pulmonary embolism
CPT/HCPCS: 36415; 71045; 71275; 80053; 83690; 83880; 84484; 85025; 85610; 85730; 93005; 93971; 94640; 96374; 96375; 99284; A9270; J1200; J1720; J7512; Q9967

== ENCOUNTER 2024-11-20 15:59 | Emergency (ER) | payer OTHER, SELFPAY ==
--- NOTE | ~2024-11-20 | XR_ITS ---
XR chest 1V portable Ordering provider: Riley Almanzar MD History: 34 years Female with . chest pain . Comparison: None. FINDINGS: MEDIASTINUM: The cardiac silhouette is not enlarged. LUNGS: No infiltrates, effusions or pneumothorax. OTHER: No free air under the diaphragm. IMPRESSION: No acute cardiopulmonary pathology. Reviewed, dictated and finalized at location A.
[2024-11-20 16:02] VITALS: BP 126/88; PULSE 82; RESP 20; TEMP 36.6; O2SAT 100
--- NOTE | 2024-11-20 16:02 | ECG_ITS ---
Test Date: 2024-11-20 16:07:14 Measurements Intervals [place] Rate: 72 P: 26 VA: 158 QRS: -13 QRSD: 88 T: 14 QT: 364 QTc: 399 Interpretive Statements SINUS RHYTHM LOW QRS VOLTAGE IN PRECORDIAL LEADS CONSIDER ANTERIOR INFARCT, AGE INDETERMINATE CONSIDER INFERIOR INFARCT, AGE INDETERMINATE ABNORMAL ECG Compared to ECG 11/19/2024 17:51:35 NO SIGNIFICANT CHANGE Electronically Signed On 11-20-2024 17:46:46 CDT by Norm Mcdaniels D.O.
[2024-11-20] MEDS: predniSONE 20 MG TABLET 40 MG PO (16:17)
--- NOTE | 2024-11-20 16:17 | ED.ALLEREA ---
HPI - Allergic Reaction General Chief complaint: Allergic Reaction <Shayla Durbin APRN - Last Filed: 11/20/24 16:21> Stated complaint: tongue swelling/tingling, throat tingle <Shayla Durbin APRN - Last Filed: 11/20/24 16:21> Time Seen by Provider: 11/20/24 16:00 <Shayla Durbin APRN - Last Filed: 11/20/24 16:21> Focused HPI: Patient is a 34-year-old female who presents to the ER with concerns an allergic reaction. She reports she had contrast yesterday (with Benadryl steroids) and tolerated the procedure well but then woke up with swollen hands, feeling of throat constriction, and mild chest pain. Patient reports she is able to maintain her secretions, swallow water, and denies any stridor or wheezing. She endorses a history of factor 5 Leiden and DVTs. GENERAL: Well-appearing, well-nourished, and in no acute distress. HEAD: Normocephalic, atraumatic. CHEST: Clear to auscultation. ?No respiratory distress. HEART: Regular rate and rhythm.? NEURO: ?Alert and oriented x3. Patient screened in triage and initial orders placed.? ?Additional care and disposition to be based upon?diagnostic testing and treatment. <Shayla Durbin APRN - Last Filed: 11/20/24 16:21> History of Present Illness HPI narrative: Patient is a 34-year-old female who presents emergency department with chief complaint allergic reaction. Patient reports she received IV contrast yesterday and reports that she was pretreated with steroids and Benadryl the patient states that she has swollen today felt she had some discomfort in her chest and also reports that she had a feeling of swelling a throat time. <Riley Almanzar MD - Last Filed: 11/20/24 21:47> Related Data Allergies/adverse reactions: Allergies Allergy/AdvReac Type Severity Reaction Status Date / Time Iodinated Contrast Media Allergy Swelling Verified 11/19/24 17:24 morphine Allergy Swelling Verified 11/19/24 17:24 <Shayla Durbin APRN - Last Filed: 11/20/24 16:21> Review of Systems Review of Systems: A 10 system review of systems was completed on the patient and is negative except for what is stated in the HPI. Nursing and ancillary documentation was reviewed. <Riley Almanzar MD - Last Filed: 11/20/24 21:47> Exam Narrative: GENERAL: Well-appearing, well-nourished, and in no acute distress. HEAD: Normocephalic, atraumatic. EYES: PERRLA and EOMI. ENT: Nares clear, no rhinorrhea or epistaxis. Mucous membranes moist. NECK: Supple. CHEST: Clear to auscultation. No respiratory distress. HEART: Regular rate and rhythm. No murmur heard. Normal peripheral pulses. ABDOMEN: Soft, nontender, nondistended, normal active bowel sounds. EXTREMITIES: Normal range of motion. No edema. SKIN: Warm, dry, no rash. NEURO: No focal deficits. Alert and oriented x3. PSYCH: Normal mood and affect. <Riley Almanzar MD - Last Filed: 11/20/24 21:47> Course Vital Signs Vital signs: Vital Signs Temperature 36.6 C 11/20/24 16:02 Pulse Rate 82 11/20/24 16:02 Respiratory Rate 20 11/20/24 16:02 Blood Pressure 126/88 11/20/24 16:02 Pulse Oximetry 100 11/20/24 16:02 Oxygen Delivery Room Air 11/20/24 16:02 Temperature 36.6 C 11/20/24 16:02 Pulse Rate 68 11/20/24 19:22 Respiratory Rate 16 11/20/24 19:22 Blood Pressure 131/80 11/20/24 19:22 Pulse Oximetry 97 11/20/24 19:22 Oxygen Delivery Room Air 11/20/24 19:22 <Shayla Durbin APRN - Last Filed: 11/20/24 16:21> Vital Signs Temperature 36.6 C 11/20/24 16:02 Pulse Rate 82 11/20/24 16:02 Respiratory Rate 20 11/20/24 16:02 Blood Pressure 126/88 11/20/24 16:02 Pulse Oximetry 100 11/20/24 16:02 Oxygen Delivery Room Air 11/20/24 16:02 Temperature 36.6 C 11/20/24 16:02 Pulse Rate 68 11/20/24 19:22 Respiratory Rate 16 11/20/24 19:22 Blood Pressure 131/80 11/20/24 19:22 Pulse Oximetry 97 11/20/24 19:22 Oxygen Delivery Room Air 11/20/24 19:22 <Riley Almanzar MD - Last Filed: 11/20/24 21:47> MDM - Allergic Reaction MDM Narrative Medical decision making narrative: Differential diagnosis includes allergic reaction, Patient is awake alert no acute distress no stridor and no respiratory distress. <Riley Almanzar MD - Last Filed: 11/20/24 21:47> Lab Data Result diagrams: 11/20/24 20:30 11/20/24 20:30 <Shayla Dubrin APRN - Last Filed: 11/20/24 16:21> Labs: Lab Results 11/20/24 Range/Units 20:30 WBC 8.0 (4.5-10.0) K/mm3 RBC 4.59 (4.2-5.4) M/mm3 Hgb 13.3 (12.0-15.0) g/dL Hct 40.6 (37.0-47.0) % MCV 88.5 (80-100) fl MCH 29.0 (26-34) pg MCHC 32.8 (32-36) g/dl RDW 12.5 (11.5-14.5) % Plt Count 333 (150-375) k/mm3 MPV 10.0 (7.4-10.4) fl Immature Gran % (Auto) 0.5 (0-0.5) % Neut % (Auto) 83.8 H (45.5-73.1) % Lymph % (Auto) 12.4 L (18.3-44.2) % Austin % (Auto) 2.6 (2.6-8.5) % Eos % (Auto) 0.3 (0-4.4) % Baso % (Auto) 0.4 (0.2-1.2) % Lymph # (Auto) 0.99 (0.9-3.2) K/mm3 Austin # (Auto) 0.2 (0.1-0.6) K/mm3 Eos # (Auto) 0.0 (0-0.3) K/mm3 Baso # (Auto) 0.0 (0.0-0.1) K/mm3 Abs Immat Gran (auto) 0.04 H (0.00-0.031) K/mm3 Absolute Neuts (auto) 6.7 (1.3-6.7) K/mm3 Absolute Nucleated RBC 0.000 (0.0-0.012) K/mm3 Nucleated RBC % 0.0 (0.0-0.2) % PT 14.6 (11.1-14.7) Seconds INR 1.1 APTT 27.2 (22.3-36.8) Seconds Sodium 136 L (137-145) mmol/L Potassium 4.1 (3.4-5.0) mmol/L Chloride 106 (98-107) mmol/L Carbon Dioxide 21 L (22-30) mmol/L Anion Gap 9 (4-12) mmol/L BUN 15 (7-17) mg/dL Creatinine 0.59 L (0.7-1.0) mg/dL Estim Creat Clear Calc 133 ml/min Estimated GFR > 60 (59 - ) Glucose 152 H (65-110) mg/dL Calcium 8.9 (8.4-10.2) mg/dL Total Bilirubin 0.5 (0.2-1.3) mg/dL AST 16 (14-36) U/L ALT 24 (6-35) U/L Alkaline Phosphatase 113 (38-126) U/L Troponin I < 0.012 (0.000-0.034) ng/mL Total Protein 7.0 (6.3-8.2) g/dL Albumin 4.2 (3.5-5.1) g/dL Lipase 70 (23-300) U/L <Shayla Durbin, PROGRAMMING INSTRUCTOR - Last Filed: 11/20/24 16:21> Lab Results 11/20/24 Range/Units 20:30 WBC 8.0 (4.5-10.0) K/mm3 RBC 4.59 (4.2-5.4) M/mm3 Hgb 13.3 (12.0-15.0) g/dL Hct 40.6 (37.0-47.0) % MCV 88.5 (80-100) fl MCH 29.0 (26-34) pg MCHC 32.8 (32-36) g/dl RDW 12.5 (11.5-14.5) % Plt Count 333 (150-375) k/mm3 MPV 10.0 (7.4-10.4) fl Immature Gran % (Auto) 0.5 (0-0.5) % Neut % (Auto) 83.8 H (45.5-73.1) % Lymph % (Auto) 12.4 L (18.3-44.2) % Austin % (Auto) 2.6 (2.6-8.5) % Eos % (Auto) 0.3 (0-4.4) % Baso % (Auto) 0.4 (0.2-1.2) % Lymph # (Auto) 0.99 (0.9-3.2) K/mm3 Austin # (Auto) 0.2 (0.1-0.6) K/mm3 Eos # (Auto) 0.0 (0-0.3) K/mm3 Baso # (Auto) 0.0 (0.0-0.1) K/mm3 Abs Immat Gran (auto) 0.04 H (0.00-0.031) K/mm3 Absolute Neuts (auto) 6.7 (1.3-6.7) K/mm3 Absolute Nucleated RBC 0.000 (0.0-0.012) K/mm3 Nucleated RBC % 0.0 (0.0-0.2) % PT 14.6 (11.1-14.7) Seconds INR 1.1 APTT 27.2 (22.3-36.8) Seconds Sodium 136 L (137-145) mmol/L Potassium 4.1 (3.4-5.0) mmol/L Chloride 106 (98-107) mmol/L Carbon Dioxide 21 L (22-30) mmol/L Anion Gap 9 (4-12) mmol/L BUN 15 (7-17) mg/dL Creatinine 0.59 L (0.7-1.0) mg/dL Estim Creat Clear Calc 133 ml/min Estimated GFR > 60 (59 - ) Glucose 152 H (65-110) mg/dL Calcium 8.9 (8.4-10.2) mg/dL Total Bilirubin 0.5 (0.2-1.3) mg/dL AST 16 (14-36) U/L ALT 24 (6-35) U/L Alkaline Phosphatase 113 (38-126) U/L Troponin I < 0.012 (0.000-0.034) ng/mL Total Protein 7.0 (6.3-8.2) g/dL Albumin 4.2 (3.5-5.1) g/dL Lipase 70 (23-300) U/L <Riley Almanzar MD - Last Filed: 11/20/24 21:47> Discharge Plan Discharge Clinical Impression: Allergic reaction <Shayla Durbin APRN - Last Filed: 11/20/24 16:21> Patient Disposition: Home <Shayla Durbin APRN - Last Filed: 11/20/24 16:21> Condition: Stable <Shayla Durbin APRN - Last Filed: 11/20/24 16:21> Instructions: Antibiotic Form, General Allergic Reaction (ED) <Shayla Durbin APRN - Last Filed: 11/20/24 16:21> Patient Language: Nigerien <Shayla Durbin APRN - Last Filed: 11/20/24 16:21> Prescriptions: New prednisone 20 mg tablet 40 mg PO DAILY 5 Days Qty: 10 0RF No Action acetaminophen [Tylenol Extra Strength] 500 mg tablet 1,000 mg PO Q6H PRN (Reason: pain) Qty: 50 0RF dicyclomine 20 mg tablet 20 mg PO TID Qty: 30 0RF ondansetron 4 mg tablet,disintegrating 4 mg PO Q8H PRN (Reason: nausea and vomiting) Qty: 10 0RF ibuprofen 600 mg tablet 600 mg PO TID PRN (Reason: fever or pain) Qty: 30 0RF dicyclomine 20 mg tablet 20 mg PO QID PRN (Reason: abdominal discomfort) Qty: 20 0RF ondansetron 4 mg tablet,disintegrating 4 mg PO Q8H PRN (Reason: nausea and vomiting) Qty: 10 0RF dicyclomine 20 mg tablet 20 mg PO TID Qty: 14 0RF loperamide [Anti-Diarrheal (loperamide)] 2 mg capsule 2 mg PO Q6H PRN (Reason: loose stool) Qty: 6 0RF Eliquis DVT-PE Treat 30D Start 5 mg (74 tabs) tablets,dose pack See Rx Instructions .ROUTE .COMPLEX Qty: 74 0RF Rx Instructions: orally per package directions prednisone 20 mg tablet 40 mg PO DAILY 5 Days Qty: 10 0RF famotidine 20 mg tablet 20 mg PO DAILY Qty: 5 0RF loratadine 10 mg tablet 10 mg PO DAILY Qty: 5 0RF epinephrine [EpiPen] 0.3 mg/0.3 mL auto-injector 0.3 mg IM ONCE PRN (Reason: anaphylaxis) Qty: 2 0RF Rx Instructions: as a single dose; may repeat once. Go straight to the ER after using. <Shayla Durbin APRN - Last Filed: 11/20/24 16:21> Follow-up/Referrals: Radha,Bong Wise MD [Primary Care Provider] - <Shayla Durbin APRN - Last Filed: 11/20/24 16:21> Time of Disposition: 20:01 <Shayla Durbin APRN - Last Filed: 11/20/24 16:21> 20:01 <Riley Almanzar MD - Last Filed: 11/20/24 21:47>
[2024-11-20] MEDS: IPRATROPIUM 0.5 MG/ALBUTEROL SULFATE 2.5 MG AMPUL.NEB 3 ML INHALATION (16:20)
[2024-11-20 16:21] VITALS: PULSE 64; RESP 16
[2024-11-20 16:30] VITALS: PULSE 80; RESP 16
--- OUTSIDE RECORDS SUMMARY | 2024-11-20 16:33 | XMS_ITS | Encounter Summary ---
Author Organization [facility] Address [address] [place] [address] Care Team Providers Care Slab Miller Operator Name Role Phone Payton Francisco DO Primary Care Provider [phone] Bong Garcia MD Primary Care Provider [phone] Aleks Garcia MD Unavailable [phone] Encounter Details Date Type Department Care Team (Late st Contact Info) Description 05/20/2019 Hospital Follow-up Call [facility] Telemetry Unit [address] [place], [place] [id number] Cori Medrano Social History Tobacco Use Types Packs/Day Years Used Date Smoking Tobacco: Never Smokeless Tobacco: Never Alcohol Use Standard Drinks/Week Comments No 0 (1 standard drink = 0.6 oz pur e alcohol) AUDIT-C Answer Date Recorded Frequency of Alcohol Consumption Never 05/12/2019 Average Number of Drinks Not on file 019 Frequency of Binge Drinking Not on file 04/24 Comments No Sex and Gender Information Value Date Recorded Sex Assigned at Not on file Legal Sex Female 4:12 PM CDT Gender Identity Not on file Sexual Orientation Not on file documented as of this encounter Functional Status * RETIRED Are you deaf or do you have serious difficulty hearing Answer Date of Assessment Author Status No 05/12/2019 8:40 PM CDT Activ e * RETIRED Are you blind or do you have serious difficulty seeing, even when wearing glasses? Answer Date of Assessment Author Status No 05/12/2019 8:40 PM CDT Activ e * Do you have serious difficulty walking or climbing stairs? Answer Date of Assessment Author Status No 05/12/2019 8:40 PM Kaci Arriaga RN Active * Do you have difficulty dressing or bathing? Answer Date of Assessment Author Status No 05/12/2019 8:40 PM PHILIPPT Kaci Donaldson RN Active * Because of a physical, mental, or emotional condition, do you have difficulty doing errands alone such as visiting a doctor's office or shopping? Answer Date of Assessment Author Status No 05/12/2019 8:40 PM Kaci Arriaga RN Active documented as of this encounter Mental Status * Because of a physical, mental, or emotional condition, do you have serious difficulty concentrating, remembering, or making decisions? Answer Entry Date Author Status No 05/12/2019 8:40 PM Kaci Arriaga RN Active documented in this encounter Plan of Treatment Not on file documented as of this encounter Visit Diagnoses Not on filedocumented in this encounter Additional Health Concerns Infection Onset Date Last Indicated Resolved Time COVID-19 Rule Out 04/02/2021 04/02/2021 04/02/2021 1:40 PM CDT COVID-19 Confirmed 04/02/2021 04/02/2021 12:34 AM CDT Influenza - Seasonal 05/31/2022 05/31/2022 023 12:33 AM DIRECTOR OF STRATEGIC SALES COVID-19 Rule Out 02/02/2023 02/02/2023 02/02/2023 12:14 PM CDT COVID-19 Rule Out 08/29/2024 08/29/2024 08/29/2024 10:53 AM DIRECTOR OF STRATEGIC SALES documented as of this encounter Care Teams Slab Miller Operator Relationship Specialty Start Date End Date Payton Francisco DO [address] [place] [address] PCP - General FAMILY PRACTICE 05/12/19 01/02/20 [place] [address] [place] [address] PCP - General FAMILY PRACTICE 01/03/20 [place] [address] [place] [address] Medical Oncologist HEMATOLOGY/ONCOLOGY 02/06/23 documented as of this encounter
--- OUTSIDE RECORDS SUMMARY | 2024-11-20 16:33 | XMS_ITS | Referral Summary ---
Author Organization [facility] Address [address] [place] [address] Care Team Providers Care Nail Polish Brush Machine Feeder Name Role Phone Bong Garcia MD Primary Care Provider [phone] Allergies Active Allergy Reactions Criticality Noted Date [...] on file Legal Sex Female 1:08 PM DRILLER HAND Gender Identity Not on file Sexual Orientation Not on file Last Filed Vital Signs Vital Sign Reading Time Taken Comments Blood Pressure 118/83 08/08/2024 9:20 AM DRILLER HAND Pulse 61 08/08/2024 9:20 AM DRILLER HAND Temperature 36.2 C (97.2 F) 08/08/2024 9:20 AM DRILLER HAND Respiratory Rate 18 08/08/2024 9:20 AM DRILLER HAND Oxygen Saturation 98% 08/08/2024 9:20 AM DRILLER HAND Inhaled Oxygen Concentration - - Weight 108 kg (238 lb) 08/08/2024 9:17 AM DRILLER HAND Height 162.6 cm (5' 4 ) 08/08/2024 9:20 AM DRILLER HAND Body Mass Index 40.85 08/08/2024 9:17 AM DRILLER HAND Plan of Treatment Not on file Medical Devices Implanted Type Area Speech Instructor Device Identifier Shelf Expiration Date Model / Serial / Lot Ivc Filter Explanted:Qty: 1 on 01/02/2024 by Sofia Rudd MD PhD IVC Filter Left: Vena Cava Iud N/A: Uterus Insurance [facility] CHOICE PLUS AETNA BETTER [facility] Advance Directives For more information, please contact: [phone] * Full Code (Latest Code Status on File) Date Activated Date Inactivated Comments 05/21/2019 7:47 PM 05/22/2019 6:28 PM * Full Code Date Activated Date Inactivated Comments 12/11/2018 8:10 PM 12/14/2018 9:40 PM * Full Code Date Activated Date Inactivated Comments 12/10/2018 9:09 PM 12/11/2018 8:10 PM Full CPR in case of cardiopulmonary arrest Care Teams Nail Polish Brush Machine Feeder Relationship Specialty [place] [address] [place] [address] PCP - General Family Practice 02/08/23
--- OUTSIDE RECORDS SUMMARY | 2024-11-20 16:33 | XMS_ITS | Clinical Summary ---
Author Organization [facility] Address [address] [facility] [place] [address] Care Team Providers Care Certification And Selection Specialist Name Role Phone Bong Garcia MD Primary Care Provider [phone] Allergies Active Allergy Reactions Criticality Noted Date [...] on file Legal Sex Female 1:08 PM SPORTS THERAPIST Gender Identity Not on file Sexual Orientation [...] MD Complications:Pre eclampsia, Induced Hypertension Delivery Location:This [facility] ([facility] Last Filed Vital Signs Vital Sign Reading Time Taken Comments Blood Pressure 118/83 08/08/2024 9:20 AM SPORTS THERAPIST Pulse 61 08/08/2024 9:20 AM SPORTS THERAPIST Temperature 36.2 C (97.2 F) 08/08/2024 9:20 AM SPORTS THERAPIST Respiratory Rate 18 08/08/2024 9:20 AM SPORTS THERAPIST Oxygen Saturation 98% 08/08/2024 9:20 AM SPORTS THERAPIST Inhaled Oxygen Concentration - - Weight 108 kg (238 lb) 08/08/2024 9:17 AM SPORTS THERAPIST Height 162.6 cm (5' 4 ) 08/08/2024 9:20 AM SPORTS THERAPIST Body Mass Index 40.85 08/08/2024 9:17 AM SPORTS THERAPIST Plan of Treatment Health Maintenance Due Date [...] this topic Medical Devices Implanted Type Area Scale Tester Device Identifier Shelf Expiration Date Model / Serial / Lot Ivc Filter Explanted:Qty: 1 on 01/02/2024 by Sofia Rudd MD PhD IVC Filter Left: Vena Cava Iud N/A: Uterus Insurance [facility] CHOICE PLUS AET[place] A[place] Advance Directives For more information, please contact: [phone] * Full Code (Latest Code Status on File) Date Activated Date Inactivated Comments 05/21/2019 7:47 PM 05/22/2019 6:28 PM * Full Code Date Activated Date Inactivated Comments 12/11/2018 8:10 PM 12/14/2018 9:40 PM * Full Code Date Activated Date Inactivated Comments 12/10/2018 9:09 PM 12/11/2018 8:10 PM Full CPR in case of cardiopulmonary arrest Care Teams Certification And Selection Specialist Relationship Specialty [place] [address] [place] [address] PCP - General Family Practice 02/08/23
--- OUTSIDE RECORDS SUMMARY | 2024-11-20 16:33 | XMS_ITS | Encounter Summary ---
Author Organization [facility] Address [address] [place] [address] Care Team Providers Care Chemical Equipment Repairer Name Role Phone Payton Francisco DO Primary Care Provider [phone] Bong Garcia MD Primary Care Provider [phone] Aleks Garcia MD Unavailable [phone] Encounter Details Date Type Department Care Team (Late st Contact Info) Description 07/01/2013 Abstract [facility] CONVERSION [address] [place], [place] [id number] , Generic Conversion, Social History Tobacco Use Types Packs/Day Years Used Date Smoking Tobacco: Never Assessed Comments Unknown Sex and Gender Information Value Date Recorded Sex Assigned at Not on file Legal Sex Female 4:12 PM CDT Gender Identity Not on file Sexual Orientation Not on file documented as of this encounter Plan of Treatment Not on file documented as of this encounter Visit Diagnoses Not on filedocumented in this encounter Additional Health Concerns Infection Onset Date Last Indicated Resolved Time COVID-19 Rule Out 04/02/2021 04/02/2021 04/02/2021 1:40 PM CDT COVID-19 Confirmed 04/02/2021 04/02/2021 12:34 AM CDT Influenza - Seasonal 05/31/2022 05/31/2022 023 12:33 AM CUSTOM BIKE BUILDER COVID-19 Rule Out 02/02/2023 02/02/2023 02/02/2023 12:14 PM CDT COVID-19 Rule Out 08/29/2024 08/29/2024 08/29/2024 10:53 AM CUSTOM BIKE BUILDER documented as of this encounter Care Teams Chemical Equipment Repairer Relationship Specialty Start Date End Date Payton Francisco DO [address] [place] [address] PCP - General FAMILY PRACTICE 05/12/19 01/02/20 [place] [address] [place], [place] [id number] PCP - General FAMILY PRACTICE 01/03/20 [place] [address] [place] [address] Medical Oncologist HEMATOLOGY/ONCOLOGY 02/06/23 documented as of this encounter
--- OUTSIDE RECORDS SUMMARY | 2024-11-20 16:33 | XMS_ITS | Clinical Summary ---
Author Organization [facility] Address [address] [place] [address] Phone Care Team Providers Care Woodyard Crane Operator Name Role Phone Bong Garcia MD Primary Care Provider [phone] Payton Francisco DO Unavailable Unavailable Allergies No [...] age to complete this topic Insurance [id number] [place] [id number] MEDICAID AETNA [facility] Care Teams Woodyard Crane Operator Relationship Specialty [place] [address] [place] [address] PCP - General Family Medicine 01/06/23 [place] [address] [place] [address] Family Medicine 01/06/23
--- OUTSIDE RECORDS SUMMARY | 2024-11-20 16:33 | XMS_ITS | Clinical Summary ---
Author Organization [facility] Address [facility] [place] [address] Care Team Providers Care Home Support Worker Name Role Phone Bong Garcia MD Primary Care Provider [phone] Aleks Garcia MD Unavailable [phone] Allergies Active Allergy Reactions Criticality Noted Date Comments Iodinated Contrast Media Swelling High 11/30/2023 Morphine Rash Medium 06/29/2023 Medications EPINEPHrine 0.3 MG/0.3ML injection INJECT NEEDED FOR ANAPHYLAXIS. MAY REPEAT. GO TO ER AFTER USING Active levonorgestrel (MIRENA) 20 MCG/DAY IUD 1 Intra Uterine Device by Intrauterine route once. Active phenazopyridine (PYRIDIUM) 100 MG tablet Take 1 tablet (100 mg total) by mouth. Active ondansetron (ZOFRAN-ODT) 4 MG disintegrating tablet Take 1 tablet (4 mg total) by mouth. Active ketorolac (TORADOL) 10 MG tablet Take 1 tablet (10 mg total) by mouth every 6 (six) hours as needed. Active hydrOXYzine (ATARAX) 25 MG tablet Take 1 tablet (25 mg total) by mouth every 6 (six) hours. Active famotidine (PEPCID) 20 MG tablet Take 1 tablet (20 mg total) by mouth 2 (two) times daily. Active diphenhydrAMINE (BENADRYL) 25 MG capsule Take 2 capsules (50 mg total) by mouth every 6 (six) hours as needed. Active ondansetron (ZOFRAN) 4 MG tabletIndications :Gastroenteritis Take 1 tablet (4 mg total) by mouth every 8 (eight) hours as needed. 20 tablet 025 Active Additional Information Patient not taking.Reported on 10/29/2024 apixaban (ELIQUIS) 5 MG tabletIndications :Saddle 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, unspecified chronicity ([facility]) TAKE 1 TABLET BY MOUTH TWICE A DAY 60 tablet Active azithromycin (ZITHROMAX) 250 MG tabletIndications :Dysuria Take 4 tablets by mouth single dose then 500mg daily for 3 days Disregard previous order 10 tablet Active Additional Information Patient not taking.Reported on 10/29/2024 doxycycline hyclate (VIBRAMYCIN) 100 MG capsuleIndication s:Urine abnormality Take 1 capsule (100 mg total) by mouth 2 (two) times daily for 10 days. 20 capsule 025 2024 Active azithromycin (ZITHROMAX) 250 MG tabletIndications :Dysuria Take 4 tablets by mouth single dose 4 tablet 025 2024 Discontinued fluconazole (DIFLUCAN) 150 MG tabletIndications :Dysuria Take 1 tablet (150 mg total) by mouth once for 1 dose. 1 tablet 025 2024 Active Problems Problem Noted Date Diagnosed Date Obesity, morbid 01/02/2024 Chronic venous insufficiency 07/11/2023 Loose body of left knee 05/25/2023 IUD (intrauterine device) in place 02/24/2023 Vitamin D deficiency 02/19/2020 Pulmonary embolus ([facility]) 05/12/2019 Current episode of major dep ressive disorder without prior episode 01/12/2019 GDM (gestational diabetes mellitus) ([facility]) Dysfunctional uterine bleeding 12/01/2013 Depression 03/01/2013 Anxiety 05/23/2012 Resolved Problems Problem Noted Date Diagnosed Date Resolved Date Contact dermatitis 05/08/2013 1 Encounters Date Type Department Care Team Description 11/20/2024 Telephone [facility] Family [facility] Internal Medicine - [place] [address] [place] [phone] Bong Garcia MD Allergies (Allergic reaction to CT contrast medication) 11/12/[address] [phone] Bong Garcia MD Medication 11/09/2024 Results Follow-Up [address] [phone] Sandra Vaughan APRN VAGINITIS SCREEN (QUEST [id number]), MYCOPLASMA/UREAPLASM A PNL, PCR, MYCOPLASMA/UREAPLASM A PNL, PCR 11/01/2024 Orders Only [address] [phone] Sandra Vaughan APRN 11/01/2024 Orders Only [address] [phone] Bong Garcia MD 10/31/[address] [phone] Bong Garcia MD Results 10/29/2024 4:40 PM CDT Office Visit [address] [phone] Sandra Vaughan APRN Vaginal Problem (Follow up) 10/29/2024 Travel 10/24/2024 3:40 PM CDT Office Visit [address] [phone] Meseret Denton, PA UTI (For past 4 days, vaginal itching and burning-no discharge-blood when wiping, low back pain) 10/24/2024 Travel 08/29/2024 11:20 AM INTER FOLD ROLL CUTTER Laboratory Only [facility] Internal [address] [place] [address] Meseret Denton PA 08/29/2024 11:00 AM INTER FOLD ROLL CUTTER Office Visit [facility] Family [facility] Internal Medicine [facility] [address] [place] [address] Meseret Denton PA Abdominal Pain (Stomach cramping, nausea x 1 day) 08/29/2024 Travel from Last 3 Months Immunizations Immunization Administration Dates Next Due Afluria 36 MONTHS+ (Prefille d Syringe IIV4) 05/12/2019 COVID-19 Vaccine (Generic) 08/24/2021(Deferred: Patient Refused) Dtap (Acel-Immune) 03/16/1994, 1,1989,1989,1989 Fluzone 6 Months+ Quad (0.5 mL Prefilled Syringe) 05/27/2021 Hepatitis B Pediatric 04/25/2000,11/02/1999,01/2000 Hib (Generic) 06/26/1990 Influenza (Generic) 05/12/2020 Influenza Adult (Generic) 05/12/2020 MMR (MMRII) 03/16/1994,06/26/1990,03/16/1990 Polio Opv (Generic) 03/16/1994, 1,1989,1988 Tdap (Adacel) 05/27/2021 Tdap (Generic) 12/05/2018 Family History Medical History Relation Comments Diabetes Father Hypertension Father Cancer Maternal Grandmother No Known Problems Mother Cancer Paternal Grandmother Relation Status Comments Father Alive Maternal Grandmother Mother Alive Paternal Grandmother Social History Tobacco Use Types Packs/Day Years Used Date Smoking Tobacco: Never Passive Smoke Exposure: Never Smokeless Tobacco: Never Tobacco Cessation:Counseling Given: No Alcohol Use Standard Drinks/Week Comments No 0 (1 standard drink = 0.6 oz pur e alcohol) AUDIT-C Answer Date Recorded Frequency of Alcohol Consumption Never 05/12/2019 Average Number of Drinks Not on file 019 Frequency of Binge Drinking Not on file 04/24 PHQ-2 Answer Date Recorded Patient Health Questionnaire-2 Score 0 12/14/2023 Comments No Sex and Gender Information Value Date Recorded Sex Assigned at Not on file Legal Sex Female 4:12 PM CDT Gender Identity Not on file Sexual Orientation Not on file Last Filed Vital Signs Vital Sign Reading Time Taken Comments Blood Pressure 139/87 10/29/2024 4:45 PM CDT Pulse 64 10/29/2024 4:45 PM CDT Temperature 36.7 C (98 F) 10/29/2024 4:45 PM CDT Respiratory Rate 18 10/29/2024 4:45 PM CDT Oxygen Saturation 96% 10/29/2024 4:45 PM CDT Inhaled Oxygen Concentration - - Weight 105.7 kg (233 lb) 10/29/2024 4:45 PM CDT Height 162.6 cm (5' 4 ) 10/29/2024 4:45 PM CDT Body Mass Index 39.99 10/29/2024 4:45 PM CDT Plan of Treatment Health Maintenance Due Date Last Done Comments Annual Physical 12/06/2022 12/06/2021, 110 10/2020, 01/03/2020 COVID-19 Vaccine ( season) 2024 PHQ-2 (Physician [place]) 07/24/2024 12/14/2023 Cervical Cancer Screening Pap Smear (Age 30 to 64) Every 3 Years 12/06/2024 12/06/2021 Cervical Cancer Screening Pap with HPV Testing (Age 30 to 64) Every 5 Years 12/06/2026 12/06/2021 Cervical Cancer Screening with HPV 12/06/2026 DTaP, Tdap and Td Vaccines (8 - Td or Tdap) 05/27/2031 05/27/2021, 12/05/2018, 03/16/1994, Additional history exists Hepatitis B Vaccines Completed 04/25/2000, 11/02/1999, 08/30/1999 Hepatitis C Completed 05/25/2022 HPV Vaccines Aged Out No longer eligi ble based on patient's age to complete this topic Meningococcal B Vaccine Aged Out No l onger eligible based on patient's age to complete this topic Meningococcal Vaccine Aged Out No carrie ana cristina eligible based on patient's age to complete this topic Pneumococcal Vaccine: Pediatrics (0 to 5 Years) and At-Risk Patients (6 to 49 Years) Aged Out No longer eligible based on patient's age to complete this topic RSV Immunizations Under 20 Months Aged Out No longer eligible based on patient's age to complete this topic Procedures Procedure Name Priority Date/Time Associated Diagnosis Comments VAGINITIS SCREEN Routine 10/29/2024 4:52 PM CDT Itching of vagina MYCOPLASMA/UREAPLASMA PNL, PCR Routine 10/29/2024 4:52 PM CDT MYCOPLASMA/UREAPLASMA PNL, PCR Routine 10/29/2024 12:00 AM CDT URINE BACTERIA CULTURE Routine 3:58 PM CDT Suspected UTI URINALYSIS AUTO DIP Routine 10/24/2024 Suspected UTI COLLECTION VENOUS BLOOD VENIPUNCTURE Routine 08/29/2024 11:13 AM INTER FOLD ROLL CUTTER Generalized abdominal pain LIPASE Routine 08/29/2024 11:13 AM INTER FOLD ROLL CUTTER Generalized abdominal pain COMPREHENSIVE METABOLIC PANEL Routine 08/29/2024 11:13 AM INTER FOLD ROLL CUTTER Generalized abdominal pain CBC W/DIFF AUTOMATED Routine 08/29/2024 11:13 AM INTER FOLD ROLL CUTTER Generalized abdominal pain CORONAVIRUS (COVID-19) INFLUENZA A & B ANTIGEN IA PANEL Routine 08/29/2024 Suspected COVID-19 virus infection HEPATITIS PANEL,ACUTE Routine 05/25/2022 3:46 PM CDT Screen for STD (sexually transmitted disease) THINPREP PAP W AGE BASED SCREENING PROTOCOLS Routine 12/06/2021 10:14 AM CDT Cervical cancer screening from Last 3 Months or Most Recently Relevant to Health Maintenance Results * (ABNORMAL) MYCOPLASMA/UREAPLASMA PNL, PCR (10/29/2024 4:52 PM CDT) Only the most recent of2 resultswithin the time period is included. UREAPLASMA PARVUM DNA DETECTED(A) Recorded [facility] UREAPLASMA UREALYTICUM DNA NOT DETECTED [facility] Comment: REFERENCE RANGE: NOT DETECTED Methodology: Real-Time PCR This test was developed and its analytical performance characteristics have been determined by [employer]. It has not been cleared or approved by FDA. This assay has been validated pursuant to the CLIA regulations and is used for clinical purposes. 10/29/2024 4:52 PM CDT 10/30/2024 4:30 AM CDT Narrative Resulting Agency Comment Performing Organization Information: Site ID: [id number] Name: Kevin Schmidt/[facility], Address: [address] [place] [phone] Director: Georgina Mclaughlin MD,PhD,MONROE Sandra Vaughan APRN LABORATORY Final Resu lt [facility] KEVIN SCHMIDT [address] [address], * VAGINITIS SCREEN ([facility] [id number]) (10/29/2024 4:52 PM CDT) BACTERIAL VAGINITIS NEGATIVE NEGATIVE [facility] MAYELIN SPECIES NOT DETECTED NOT DETECTED [facility] MAYELIN GLABRATA NOT DETECTED NOT DETECTED [facility] Comment: Mayelin species C. albicans, C. tropicalis, C. parapsilosis, and/or C. dubliniensis can be detected, but not differentiated, in the Mayelin spp. result. TRICHOMONAS VAGINALIS QL NOT DETECTED NOT DETECTED [facility] CHLAMYDIA TRACHOMATIS RNA TMA NOT DETECTED NOT DETECTED [facility] N.GONORRHOEAE RNA TMA (QST) NOT DETECTED NOT DETECTED [facility] Comment: For additional information, please refer to https://education.Politapoll/faq/TLW932 (This link is being provided for information/ educational purposes only.) VAGINAL STRUCTURE / Unknown 10/29/2024 4:52 PM CDT 10/30/2024 4:30 AM CDT Narrative Resulting Agency Comment Performing Organization Information: Site ID: [id number] Name: Kevin SchmidtFaraz Address: [address] [place] [address] Director: Sav Loera MD Sandra Vaughan APRN MICROBIOLOGY - GENERAL ORD ERABLES Final Result Performing Organization Address City/[facility]/ZIP Co de Phone Number KEVIN ARAIZA [facility] ROXANA [facility] [address] [facility] [place] [address], [place] * URINE BACTERIA CULTURE (10/24/2024 3:58 PM CDT) CULTURE RESULT [facility], [place] Comment: CULTURE, URINE, ROUTINE Micro Number: [id number] Test Status: Final Specimen Source: Not given Specimen Quality: Adequate Result: Mixed genital veena isolated. These superficial bacteria are not indicative of a urinary tract infection. No further organism identification is warranted on this specimen. If clinically indicated, recollect clean-catch, mid-stream urine and transfer immediately to Urine Culture Transport Tube. URINE SPECIMEN OBTAINED BY CLEAN CATCH PROCEDURE / Unknown 10/24/2024 3:58 PM CDT 10/25/2024 12:07 AM CDT Narrative Resulting Agency Comment Performing Organization Information: Site ID: [place] Name: [facility] Address: [address] [place] [address] Director: Sav Loera Meseret MEZA MICROBIOLOGY - GENERAL ORDER MARIAM Final Result Performing Organization Address [facility] Co de Phone Number [facility] ORDERS [employer] [address], * (ABNORMAL) URINALYSIS AUTO DIP (10/24/2024) COLOR (U) YELLOW YELLOW [id number], [place] TRANSPARENCY CLEAR CLEAR MG-[address], [place] GLUCOSE (U) NEGATIVE NEGATIVE MG/DL MG-[address], [place] BILIRUBIN (U) NEGATIVE NEGATIVE MG-[address], [place] KETONES MG/DL (U) NEGATIVE NEGATIVE MG/DL MG-[address], [place] SPECIFIC GRAVITY (U) 1.030 1.001 - 1.035 MG-[address] BLOOD (U) SMALL (1+, Hemolyzed)(A ) NEGATIVE MG-[address], [place] U PH 6.0 5.0 - 9.0 MG-[address], [place] PROTEIN (U) NEGATIVE NEGATIVE mg/dL MG-[address], [place] UROBILINOGEN 0.2 0.2 - 1.0 EU/dL = mg/dL MG-[address] NITRITES NEGATIVE NEGATIVE MG/DL MG-[address], [facility] LEUKOCYTES (U) NEGATIVE NEGATIVE MG-[address], [place] URINE SPECIMEN OBTAINED BY CLEAN CATCH PROCEDURE / Unknown 10/24/2024 Meseret MEZA URINE ORDERABLES Final Resul t -[id number], [place] [address] [place] [address], * (ABNORMAL) COMPREHENSIVE METABOLIC PANEL (08/29/2024 11:13 AM INTER FOLD ROLL CUTTER) GLUCOSE 133(H) 65 - 99 mg/dL [facility] Comment: Fasting reference interval For someone without known diabetes, a glucose value >125 mg/dL indicates that they may have diabetes and this should be confirmed with a follow-up test. BUN 11 7 - 25 mg/dL [facility] CREATININE S/P/B 0.66 0.50 - 0.97 mg/dL [facility] GFR ESTIMATE 117 > OR = 60 mL/min/1. 73m2 [facility] BUN CREATININE RATIO SEE NOTE: (calc) [facility] Comment: Not Reported: BUN and Creatinine are within reference range. SODIUM S/P/B 137 135 - 146 mmol/L [facility] POTASSIUM S/P/B 4.8 3.5 - 5.3 mmol/L [facility] CHLORIDE S/P/B 103 98 - 110 mmol/L [facility] CO2 25 20 - 32 mmol/L [facility] CALCIUM S/P/B 10.0 8.6 - 10.2 mg/dL [facility] TOTAL PROTEIN S/P/B 7.8 6.1 - 8.1 g/dL [facility] ALBUMIN S/P/B 4.7 3.6 - 5.1 g/dL [facility] GLOBULIN 3.1 1.9 - 3.7 g/dL (calc) [facility] ALBUMIN/GLOBULI N RATIO 1.5 1.0 - 2.5 (calc) [facility] BILIRUBIN TOTAL S/P/B 0.5 0.2 - 1.2 mg/dL [employer] [facility] ALKALINE PHOSPHATASE S/P/B 92 31 - 125 U/L [facility] ROX[facility] AST 10 10 - 30 U/L [employer] [facility] ALT 22 6 - 29 U/L [employer] [facility] 08/29/2024 11:1 3 AM INTER FOLD ROLL CUTTER 08/30/2024 4:38 AM INTER FOLD ROLL CUTTER Narrative Resulting Agency Comment Performing Organization Information: Site ID: [place] Name: [facility] Address: [address] [place] [address] Director: Sav Loera MD Meseret MEZA LABORATORY Final Result [facility] ROXANA [facility] [address] [facility] [place] [place] [address], * (ABNORMAL) CBC W/DIFF AUTOMATED (08/29/2024 11:13 AM INTER FOLD ROLL CUTTER) WBC 12.5(H) 3.8 - 10.8 Thousand/ uL [employer] [facility] RBC 5.06 3.80 - 5.10 Million/u L [employer] [facility] HGB 14.8 11.7 - 15.5 g/dL [employer] [facility] HCT 44.1 35.0 - 45.0 % [employer] [facility] MCV 87.2 80.0 - 100.0 fL [employer] [facility] MCH 29.2 27.0 - 33.0 pg [employer] [facility] MCHC 33.6 32.0 - 36.0 g/dL [facility] Comment: For adults, a slight decrease in the calculated MCHC value (in the range of 30 to 32 g/dL) is most likely not clinically significant; however, it should be interpreted with caution in correlation with other red cell parameters and the patient's clinical condition. RDW 12.5 11.0 - 15.0 % [facility] PLT 413(H) 140 - 400 Thousand/ uL [facility] MPV 10.7 7.5 - 12.5 fL [facility] ABS. NEUTROPHILS 10,875(H) 1,500 - 7,800 cells/uL [facility] ABS. LYMPHOCYTES 1,188 850 - 3,900 cells/uL [facility] ABS. MONOCYTES 350 200 - 950 cells/uL [facility] ABS. EOSINOPHILS 13(L) 15 - 500 cells/uL [facility] ABS. BASOPHILS 75 0 - 200 cells/uL [facility] SEG NEUTROPHILS 87 % [facility] LYMPHOCYTES 9.5 % [facility] MONOCYTES 2.8 % [facility] EOSINOPHILS 0.1 % [facility] BASOPHILS 0.6 % [facility] 08/29/2024 11:1 3 AM INTER FOLD ROLL CUTTER 08/30/2024 4:38 AM INTER FOLD ROLL CUTTER Narrative Resulting Agency Comment Performing Organization Information: Site ID: [id number] Name: Kevin Holly Address: [address] [place] [address] Director: Sav Loera MD Meseret MEZA LABORATORY Final Result KEVIN ARAIZA [employer] [address] [address], * LIPASE (08/29/2024 11:13 AM INTER FOLD ROLL CUTTER) LIPASE 17 7 - 60 U/L [employer] [facility] 08/29/2024 11:1 3 AM INTER FOLD ROLL CUTTER 08/30/2024 4:38 AM INTER FOLD ROLL CUTTER Narrative Resulting Agency Comment Performing Organization Information: Site ID: [id number] Name: Kevin Holly Address: [address] [place] [phone] Director: Sav Loera MD Meseret MEZA LABORATORY Final Result [facility] [address] [place] [address], * CORONAVIRUS (COVID-19) INFLUENZA A & B ANTIGEN IA PANEL (08/29/2024) CORONAVIRUS ANTIGEN IA NEGATIVE NEGATIVE [id number], [place] INFLUENZA A NEGATIVE NEGATIVE MG-[id number], [place] INFLUENZA B NEGATIVE NEGATIVE MG-[address], [facility] Internal Control: VALID VALID MG-[address], [place] NASAL STRUCTURE / Unknown 08/29/2024 Meseret MEZA MICROBIOLOGY - GENERAL ORDER MARIAM Edited Result - Final Performing Organization Address City/[facility]/ZIP Co de Phone Number -[phone], [place] [address] [place] [address], * HEPATITIS PANEL,ACUTE (05/25/2022 3:46 PM CDT) Pathologist [facility] HAV IGM NON-REACTI VE NON-REACT [place] [facility] Comment: For additional information, please refer to http://education.Politapoll/faq/KBN340 (This link is being provided for informational/ educational purposes only.) HEPATITIS B SURFACE AG NON-REACTI VE NON-REACT [place] [facility] HEP B CORE IGM NON-REACTI VE NON-REACT [place] [facility] HEPATITIS C AB NON-REACTI VE NON-REACT [place] [facility] SIGNAL TO CUTOFF 0.03 <[address] [facility] Comment: HCV antibody was non-reactive. There is no laboratory evidence of HCV infection. In most cases, no further action is required. However, if recent HCV exposure is suspected, a test for HCV RNA (test code 92242) is suggested. For additional information please refer to http://education.Politapoll/faq/ZCK23o2 (This link is being provided for informational/ educational purposes only.) 05/25/2022 3:46 PM CDT 05/26/2022 12:51 PM CDT Meseret MEZA LABORATORY Final Result [facility] [address] [address] * THINPREP PAP W AGE BASED SCREENING ([facility] ONLY) (12/06/2021 10:14 AM CDT) Comment: [facility] Comment: This order for age-based cervical cancer and STI screening follows ACOG guidelines(PB 168, 140, YYM769). See individual assays for performing site location. CLINICAL INFORMATION: Information not provided [facility] Clinical Information: INFORMATION NOT PROVIDED [facility] Date of Last Pap INFORMATION NOT PROVIDED [facility] Previous Biopsy? INFORMATION NOT PROVIDED [facility] SOURCE (QST) [facility] STATEMENT OF ADEQUACY: [facility] Comment: Satisfactory for evaluation. Endocervical/transformation zone component present. Age and/or menstrual status not provided PAP INTERPRETATION/RES ULTS Negative for intraepithelial lesion or malignancy. [facility] COMMENT: This Pap test has been evaluated with computer assisted technology. [facility] PHOTOGRAPHIC EQUIPMENT INSPECTOR [facility] Comment: MMW, CT(ASCP) CT screening location: [place] [address] [place] [address] COMMENT: [facility] Comment: EXPLANATORY NOTE: The Pap is a screening test for cervical cancer. It is not a diagnostic test and is subject to false negative and false positive results. It is most reliable when a satisfactory sample, regularly obtained, is submitted with relevant clinical findings and history, and when the Pap result is evaluated along with historic and current clinical information. HPV MRNA E6/E7 Not Detected Not Detected [employer] [facility] Comment: Methodology: Services Engineer-Mediated Amplification This assay detects E6/E7 viral messenger RNA (mRNA) from 14 high-risk HPV types (16,18,31,33,35,39,45,51,52,56,58,59,66,68). The analytical performance characteristics of this assay have been determined by [employer]. The modifications have not been cleared or approved by the FDA. This assay has been validated pursuant to the CLIA regulations and is used for clinical purposes. For additional information, please refer to http://education.Politapoll/faq/RCI674p7 (This link if provided for information/ educational purposes only.) 12/06/2021 10:1 4 AM CDT 12/06/2021 11:40 PM CDT Meseret MEZA PATHOLOGY/CYTOLOGY ORDERABLE S Final Result [facility] [address] [place] [address] [facility] [address] [place] [address] from Last 3 Months or Most Recently Relevant to Health Maintenance Insurance [facility] Advance Directives * Full Code (Latest Code Status on File) Date Activated Date Inactivated Comments 05/12/2019 7:18 PM 05/17/2019 12:38 PM Care Teams Home Support Worker Relationship Specialty [place] [address] [facility] [place] [address] PCP - General FAMILY PRACTICE 01/03/20 [place] [address] [place] [address] Medical Oncologist HEMATOLOGY/ONCOLOGY 02/06/23
--- OUTSIDE RECORDS SUMMARY | 2024-11-20 16:33 | XMS_ITS | Encounter Summary ---
Author Organization [facility] Address [address] [place] [address] Care Team Providers Care Dust Mill Operator Name Role Phone Bong Garcia MD Primary Care Provider [phone] Aleks Garcia MD Unavailable [phone] Reason for Visit * Reason Onset Date Comments Allergies 11/20/[address] to [address] contrast medication Encounter Details Date Type Department Care Team (Late st Contact Info) Description 11/20/2024 Telephone [facility] Family & Internal Medicine [facility] [address] [place] [address] Bong Garcia [place] [id number] [place] [address] Allergies (Allergic reaction to CT contrast medication) Social History Tobacco Use Types Packs/Day Years Used Date Smoking Tobacco: Never Passive Smoke Exposure: Never Smokeless Tobacco: Never Alcohol Use Standard [...] Author Status No 05/12/2019 8:40 PM CDT Kaci Donaldson RN Active * Do you have difficulty dressing or bathing? Answer Date of Assessment Author Status No 05/12/2019 8:40 PM CDT Kaci Donaldson RN Active * Because of a physical, mental, or emotional condition, do you have difficulty doing errands alone such as visiting a doctor's office or shopping? Answer Date of Assessment Author Status No 05/12/2019 8:40 PM CDT Kaci Donaldson RN Active documented as of this encounter Mental Status * Because of a physical, mental, or emotional condition, do you have serious difficulty concentrating, remembering, or making decisions? Answer Entry Date Author Status No 05/12/2019 8:40 PM CDT Kaci Donaldson RN Active documented in this encounter Progress Notes * Sheree Aparicio RN - 11/20/2024 3:03 PM CDT Yes, she needs to be seen by someone for this before we can suggest what meds she can take. * Melina Zheng - 11/20/2024 2:21 PM CDT Korina calling asking to speak to Dr. Garcia's nurse. States she was in [facility] ER, 11/19/2024 all night, DX: with a new blood clot Korina said she had a CT scan completed which she said she is allergic to the contrast, which hospital is aware of and gave her something to help with this. Korina states she still has a slight feeling of her tongue swelling, throat swelling. ER gave her different steroids and benadryl before the CT asthey were aware of the allergic reactions. Informed Korina that Dr. Garcia is out of the office today, Told her she can come to the walk in clinic or see someone else to be evaluated to see what else she can take just. Korina said ER did a goodjob with helping with this allergic reaction but is not sure what she should take, Benadryl or can something be prescribed that is a little stronger. Informed Korina that if this reaction is severe she needs to go to ER, she said it is not life treating, but still has a little feeling that she is asking about what medication she can take. She is scheduled with her barbed wire machine operator on 12/05/2024. Korina said she will most likely come to the walk in clinic a little later. Questions CB # [phone] Korina documented in this encounter Plan of Treatment Not on file documented as of this encounter Visit Diagnoses Not on filedocumented in this encounter Additional Health Concerns Assessment Noted Time PHQ-9 Depression Total Score: 0 12/14/19 24 3:43 PM CDT documented as of this encounter Care Teams Dust Mill Operator Relationship Specialty [place] [address] [facility] [place] [address] PCP - General FAMILY PRACTICE 01/03/20 [place] [address] [facility] [place] [address] Medical Oncologist HEMATOLOGY/ONCOLOGY 02/06/23 documented as of this encounter
--- OUTSIDE RECORDS SUMMARY | 2024-11-20 16:33 | XMS_ITS | Encounter Summary ---
Author Organization [facility] Address [address] [place] [address] Phone Care Team Providers Care Wood Coater Name Role Phone Bong Garcia MD Primary Care Provider [phone] Payton Francisco DO Unavailable Unavailable Reason for Visit * Reason Onset Date Comments Prior Authorization 02/21/2023 Ct a/p order Encounter Details Date Type Department Care Team (Late st Contact Info) Description 02/21/2023 Telephone [facility] [address] [address] Aleks Garcia MD [address] [place] [address] Prior Authorization (Ct a/p order) Social [...] on filedocumented in this encounter Care Teams Wood Coater Relationship Specialty [place] [address] [place] [address] PCP - General Family Medicine 01/06/23 [place] [address] [place] [address] Family Medicine 01/06/23 documented as of this encounter
[2024-11-20] MEDS: FAMOTIDINE 20 MG TABLET PO (16:41)
[2024-11-20] MEDS: diphenhydrAMINE HCl CAP 25 MG CAPSULE 50 MG PO (16:41)
[2024-11-20 18:25] VITALS: BP 131/89; PULSE 84; RESP 17; O2SAT 100
--- OUTSIDE RECORDS SUMMARY | 2024-11-20 18:52 | XMS_ITS | Clinical Summary ---
Author Organization [facility] Address [facility] [place] [address] Care Team Providers Care Thread Trimmer Name Role Phone Bong Garcia MD Primary Care Provider [phone] Aleks Garcia MD Unavailable [phone] Allergies Active Allergy Reactions Criticality Noted Date [...] artery without acute cor pulmonale, unspecified chronicity ([facility]) TAKE 1 TABLET BY MOUTH TWICE A [...] 02/24/2023 Vitamin D deficiency 02/19/2020 Pulmonary embolus ([facility]) 05/12/2019 Current episode of major dep ressive disorder without prior episode 01/12/2019 GDM (gestational diabetes mellitus) ([facility]) Dysfunctional uterine bleeding 12/01/2013 Depression 03/01/2013 Anxiety 05/23/2012 Resolved Problems Problem Noted Date Diagnosed Date Resolved Date Contact dermatitis 05/08/2013 1 Encounters Date Type Department Care Team Description 11/20/2024 Telephone [facility] Family & Internal Medicine - [place] [address] [place] [phone] Bong Garcia MD Allergies (Allergic reaction to CT contrast medication) 11/12/[address] [phone] Bong Garcia MD Medication 11/09/2024 Results Follow-Up [address] [address] Sandra Vaughan APRN VAGINITIS SCREEN ([facility] [id number]), MYCOPLASMA/UREAPLASM A PNL, PCR, MYCOPLASMA/UREAPLASM A PNL, PCR 11/01/2024 Orders Only [address] [phone] Sandra Vaughan APRN 11/01/2024 Orders Only [address] [phone] Bong Garcia MD 10/31/[address] [address] Bong Garcia MD Results 10/29/2024 4:40 PM CDT Office Visit [address] [address] Sandra Vaughan APRN Vaginal Problem (Follow up) 10/29/2024 Travel 10/24/2024 3:40 PM CDT Office Visit [address] [address] Meseret Denton, [place] UTI (For past 4 days, vaginal itching and burning-no discharge-blood when wiping, low back pain) 10/24/2024 Travel 08/29/2024 11:20 AM SAFE EXPERT Laboratory Only [facility] Internal [address] [place] [address] Meseret Denton PA 08/29/2024 11:00 AM SAFE EXPERT Office Visit [facility] Family & Internal Medicine [facility] [address] [place] [address] Meseret Denton PA Abdominal Pain (Stomach cramping, [...] COVID-19 Vaccine ( season) 2024 PHQ-2 (Physician [place]) 07/24/2024 12/14/2023 Cervical Cancer Screening Pap Smear [...] VENOUS BLOOD VENIPUNCTURE Routine 08/29/2024 11:13 AM SAFE EXPERT Generalized abdominal pain LIPASE Routine 08/29/2024 11:13 AM SAFE EXPERT Generalized abdominal pain COMPREHENSIVE METABOLIC PANEL Routine 08/29/2024 11:13 AM SAFE EXPERT Generalized abdominal pain CBC W/DIFF AUTOMATED Routine 08/29/2024 11:13 AM SAFE EXPERT Generalized abdominal pain CORONAVIRUS (COVID-19) INFLUENZA A [...] period is included. UREAPLASMA PARVUM DNA DETECTED(A) [facility] [employer] [facility] UREAPLASMA UREALYTICUM DNA NOT DETECTED [facility] Comment: REFERENCE RANGE: NOT DETECTED Methodology: Real-Time PCR This test was developed and its analytical performance characteristics have been determined by [facility]. It has not been cleared or approved by FDA. This assay has been validated pursuant to the CLIA regulations and is used for clinical purposes. 10/29/2024 4:52 PM CDT 10/30/2024 4:30 AM CDT Narrative Resulting Agency Comment Performing Organization Information: Site ID: [id number] Name: [facility], Address: [address] [place] [address] Director: Georgina Mclaughlin MD,PhD,MONROE Sandra Vaughan APRN LABORATORY Final Resu lt [facility] KEVIN SCHMIDT [address] [address], * VAGINITIS SCREEN ([facility] 21441) (10/29/2024 4:52 PM CDT) BACTERIAL VAGINITIS NEGATIVE NEGATIVE [facility] MAYELIN SPECIES NOT DETECTED NOT DETECTED [facility] [place] MAYELIN GLABRATA NOT DETECTED NOT DETECTED [facility] Comment: Mayelin species C. albicans, C. tropicalis, C. parapsilosis, and/or C. dubliniensis can be detected, but not differentiated, in the Mayelin spp. result. TRICHOMONAS VAGINALIS QL NOT DETECTED NOT DETECTED [facility] CHLAMYDIA TRACHOMATIS RNA TMA NOT DETECTED NOT DETECTED [facility] N.GONORRHOEAE RNA TMA (QST) NOT DETECTED NOT DETECTED [facility] Comment: For additional information, please refer to https://education.My Top 10/faq/DMN147 (This link is being provided for information/ educational purposes only.) VAGINAL STRUCTURE / Unknown 10/29/2024 4:52 PM CDT 10/30/2024 4:30 AM CDT Narrative Resulting Agency Comment Performing Organization Information: Site ID: [place] Name: [facility] Address: [address] [place] [address] Director: Sav Loera MD Sandra Vaughan APRN MICROBIOLOGY - GENERAL ORD ERABLES Final Result Performing Organization Address City/[facility]/ZIP Co de Phone Number KEVIN ARAIZA [facility] [address] [facility] [place] [address], [place] * URINE BACTERIA CULTURE (10/24/2024 3:58 PM CDT) CULTURE RESULT [facility] [place] Comment: CULTURE, URINE, ROUTINE Micro Number: [id number] Test Status: Final Specimen Source: Not given [...] Performing Organization Information: Site ID: [place] Name: [facility] Address: [address] [place] [address] Director: Sav Loera Meseret MEZA MICROBIOLOGY - GENERAL ORDER MARIAM Final Result Performing Organization Address [facility] Co de Phone Number [facility] ORDERS [address] [address], * (ABNORMAL) URINALYSIS AUTO DIP (10/24/2024) COLOR (U) YELLOW YELLOW MG-[address], [place] TRANSPARENCY CLEAR CLEAR MG-[address], [place] GLUCOSE (U) NEGATIVE NEGATIVE MG/DL MG-[address], [place] BILIRUBIN (U) NEGATIVE NEGATIVE MG-[address], [place] KETONES MG/DL (U) NEGATIVE NEGATIVE MG/DL MG-[address], [place] SPECIFIC GRAVITY (U) 1.030 1.001 - 1.035 MG-[address], [facility] BLOOD (U) SMALL (1+, Hemolyzed)(A ) NEGATIVE MG-[address], [place] U PH 6.0 5.0 - 9.0 MG-[address], [place] PROTEIN (U) NEGATIVE NEGATIVE mg/dL MG-[address], [place] UROBILINOGEN 0.2 0.2 - 1.0 EU/dL = mg/dL MG-[address], [facility] NITRITES NEGATIVE NEGATIVE MG/DL MG-[address], [facility] LEUKOCYTES (U) NEGATIVE NEGATIVE MG-[address], [place] URINE SPECIMEN OBTAINED BY CLEAN CATCH PROCEDURE / Unknown 10/24/2024 Meseret MEZA URINE ORDERABLES Final Resul t -[id number], [place] [address] [place] [address], * (ABNORMAL) COMPREHENSIVE METABOLIC PANEL (08/29/2024 11:13 AM SAFE EXPERT) GLUCOSE 133(H) 65 - 99 mg/dL [facility] Comment: Fasting reference interval For someone without known diabetes, a glucose value >125 mg/dL indicates that they may have diabetes and this should be confirmed with a follow-up test. BUN 11 7 - 25 mg/dL [facility] AMNA CREATININE S/P/B 0.66 0.50 - [...] CO2 25 20 - 32 mmol/L [facility] [employer] [facility] CALCIUM S/P/B 10.0 8.6 - 10.2 mg/dL [facility] TOTAL PROTEIN S/P/B 7.8 6.1 - 8.1 g/dL [facility] ALBUMIN S/P/B 4.7 3.6 - 5.1 g/dL [facility] GLOBULIN 3.1 1.9 - 3.7 g/dL (calc) [facility] ALBUMIN/GLOBULI N RATIO 1.5 1.0 - 2.5 (calc) [facility] BILIRUBIN TOTAL S/P/B 0.5 0.2 - 1.2 mg/dL [employer] [facility] ALKALINE PHOSPHATASE S/P/B 92 31 - 125 U/L [facility] AMNA AST 10 10 - 30 U/L [employer] AM[facility] ALT 22 6 - 29 U/L [employer] [facility] 08/29/2024 11:1 3 AM SAFE EXPERT 08/30/2024 4:38 AM SAFE EXPERT Narrative Resulting Agency Comment Performing Organization Information: Site ID: [place] Name: [facility] Address: [address] [place] [address] Director: Sav Loera MD Meseret MEZA LABORATORY Final Result [facility] [address] [facility] [place] [address], * (ABNORMAL) CBC W/DIFF AUTOMATED (08/29/2024 11:13 AM SAFE EXPERT) WBC 12.5(H) 3.8 - 10.8 Thousand/ uL [employer] [facility] RBC 5.06 3.80 - 5.10 Million/u L [employer] [facility] HGB 14.8 11.7 - 15.5 g/dL [employer] [facility] HCT 44.1 35.0 - 45.0 % [employer] [facility] MCV 87.2 80.0 - 100.0 fL [employer] [facility] MCH 29.2 27.0 - 33.0 pg [employer] [facility] MCHC 33.6 32.0 - 36.0 g/dL [...] BASOPHILS 75 0 - 200 cells/uL [facility] SEG NEUTROPHILS 87 % [facility] LYMPHOCYTES 9.5 % [facility] MONOCYTES 2.8 % [facility] EOSINOPHILS 0.1 % [facility] BASOPHILS 0.6 % [facility] 08/29/2024 11:1 3 AM SAFE EXPERT 08/30/2024 4:38 AM SAFE EXPERT Narrative Resulting Agency Comment Performing Organization Information: Site ID: [id number] Name: Kevin Holly Address: [address] [place] [address] Director: Sav Loera MD Meseret MEZA LABORATORY Final Result KEVIN ARAIZA [address] [employer] [address] [address], * LIPASE (08/29/2024 11:13 AM SAFE EXPERT) LIPASE 17 7 - 60 U/L [employer] [facility] 08/29/2024 11:1 3 AM SAFE EXPERT 08/30/2024 4:38 AM SAFE EXPERT Narrative Resulting Agency Comment Performing Organization Information: Site ID: [id number] Name: Kevin Holly Address: [address] [place] [address] Director: Sav Loera MD Meseret MEZA LABORATORY Final Result [facility] [address] [place] [address], * CORONAVIRUS (COVID-19) INFLUENZA A & B ANTIGEN IA PANEL (08/29/2024) CORONAVIRUS ANTIGEN IA NEGATIVE NEGATIVE MG-[id number], [place] INFLUENZA A NEGATIVE NEGATIVE MG-[address], [place] INFLUENZA B NEGATIVE NEGATIVE MG-[address], [facility] Internal Control: VALID VALID MG-[id number], [place] NASAL STRUCTURE / Unknown 08/29/2024 Meseret MEZA MICROBIOLOGY - GENERAL ORDER MARIAM Edited Result - Final Performing Organization Address City/[facility]/ZIP Co de Phone Number -[phone], [place] [address] [place] [address], * HEPATITIS PANEL,ACUTE (05/25/2022 3:46 PM CDT) Pathologist [facility] HAV IGM NON-REACTI VE NON-REACT MARY ANNE [facility] Comment: For additional information, please refer to http://education.My Top 10/faq/YVU124 (This link is being provided for informational/ [...] a test for HCV RNA (test code 23361) is suggested. For additional information please refer to http://education.My Top 10/faq/EJK37u8 (This link is being provided for informational/ educational purposes only.) 05/25/2022 3:46 PM CDT 05/26/2022 12:51 PM CDT Meseret MEZA LABORATORY Final Result [employer] [facility] [address] [address] * THINPREP PAP W AGE BASED SCREENING (QUEST ONLY) (12/06/2021 10:14 AM CDT) Comment: [facility] Comment: This order for age-based cervical cancer and STI screening follows ACOG guidelines(PB 168, 140, UFX924). See individual assays for performing site location. CLINICAL INFORMATION: Information not provided [facility] Clinical Information: INFORMATION NOT PROVIDED [facility] Date of Last Pap INFORMATION NOT PROVIDED [facility] Previous Biopsy? INFORMATION NOT PROVIDED [facility] SOURCE (QST) Endocervix [facility] STATEMENT OF ADEQUACY: [facility] Comment: Satisfactory for evaluation. Endocervical/transformation zone component present. Age and/or menstrual status not provided PAP INTERPRETATION/RES ULTS Negative for intraepithelial lesion or malignancy. [facility] COMMENT: This Pap test has been evaluated with computer assisted technology. [facility] SYNTHETIC GEM PRESS OPERATOR [facility] Comment: MMW, CT(ASCP) CT screening location: [place] [address] [place] [address] COMMENT: [facility] Comment: EXPLANATORY NOTE: The Pap is a [...] HPV MRNA E6/E7 Not Detected Not Detected [facility] Comment: Methodology: Ship Pilot-Mediated Amplification This assay detects E6/E7 viral messenger RNA (mRNA) from 14 high-risk HPV types (16,18,31,33,35,39,45,51,52,56,58,59,66,68). The analytical performance characteristics of this assay have been determined by [facility]. The modifications have not been cleared or approved by the FDA. This assay has been validated pursuant to the CLIA regulations and is used for clinical purposes. For additional information, please refer to http://education.My Top 10/faq/OUY740j2 (This link if provided for information/ educational purposes only.) 12/06/2021 10:1 4 AM CDT 12/06/2021 11:40 PM CDT Meseret MEZA PATHOLOGY/CYTOLOGY ORDERABLE S Final Result [facility] [address] [place] [address] [facility] [address] [place] [address] from Last 3 Months or Most Recently Relevant to Health Maintenance Insurance [facility] Advance Directives * Full Code (Latest Code Status on File) Date Activated Date Inactivated Comments 05/12/2019 7:18 PM 05/17/2019 12:38 PM Care Teams Thread Trimmer Relationship Specialty [place] [address] [facility] [address] [place] [address] PCP - General FAMILY PRACTICE 01/03/20 [place] [address] [place] [address] Medical Oncologist HEMATOLOGY/ONCOLOGY 02/06/23
--- OUTSIDE RECORDS SUMMARY | 2024-11-20 18:52 | XMS_ITS | Clinical Summary ---
Author Organization [facility] Address [address] [facility] [place] [address] Care Team Providers Care Customer Engagement Representative Name Role Phone Bong Garcia MD Primary Care Provider [phone] Allergies Active Allergy Reactions Criticality Noted Date [...] on file Legal Sex Female 1:08 PM PARTS DATA WRITER Gender Identity Not on file Sexual Orientation [...] N Livin g 8 9 LUCIAN ,GIRL Tsyon Dove MD Complications:Pre eclampsia, Induced Hypertension Delivery Location:This [facility] ([facility]) Last Filed Vital Signs Vital Sign Reading Time Taken Comments Blood Pressure 118/83 08/08/2024 9:20 AM PARTS DATA WRITER Pulse 61 08/08/2024 9:20 AM PARTS DATA WRITER Temperature 36.2 C (97.2 F) 08/08/2024 9:20 AM PARTS DATA WRITER Respiratory Rate 18 08/08/2024 9:20 AM PARTS DATA WRITER Oxygen Saturation 98% 08/08/2024 9:20 AM PARTS DATA WRITER Inhaled Oxygen Concentration - - Weight 108 kg (238 lb) 08/08/2024 9:17 AM PARTS DATA WRITER Height 162.6 cm (5' 4 ) 08/08/2024 9:20 AM PARTS DATA WRITER Body Mass Index 40.85 08/08/2024 9:17 AM PARTS DATA WRITER Plan of Treatment Health Maintenance Due Date [...] this topic Medical Devices Implanted Type Area Adding Machine Mechanic Device Identifier Shelf Expiration Date Model / Serial / Lot Ivc Filter Explanted:Qty: 1 on 01/02/2024 by Sofia Rudd MD PhD IVC Filter Left: Vena Cava Iud N/A: Uterus Insurance [facility] CHOICE PLUS [employer] [employer] Advance Directives For more information, please contact: [phone] * Full Code (Latest Code Status on File) Date Activated Date Inactivated Comments 05/21/2019 7:47 PM 05/22/2019 6:28 PM * Full Code Date Activated Date Inactivated Comments 12/11/2018 8:10 PM 12/14/2018 9:40 PM * Full Code Date Activated Date Inactivated Comments 12/10/2018 9:09 PM 12/11/2018 8:10 PM Full CPR in case of cardiopulmonary arrest Care Teams Customer Engagement Representative Relationship Specialty [place] [address] [place] [address] PCP - General Family Practice 02/08/23
--- OUTSIDE RECORDS SUMMARY | 2024-11-20 18:52 | XMS_ITS | Encounter Summary ---
Author Organization [facility] Address [address] [place] [place] [address] Care Team Providers Care Bellows Filler Name Role Phone Payton Francisco DO Primary Care Provider [phone] Bong Garcia MD Primary Care Provider [phone] Aleks Garcia MD Unavailable [phone] Encounter Details Date Type Department Care Team (Late st Contact Info) Description 07/01/2013 Abstract [facility] CONVERSION [address] [place], [place] [id number] , Generic Conversion, Social History Tobacco Use [...] - Seasonal 05/31/2022 05/31/2022 023 12:33 AM PREPARER MAKING DEPARTMENT COVID-19 Rule Out 02/02/2023 02/02/2023 02/02/2023 12:14 PM CDT COVID-19 Rule Out 08/29/2024 08/29/2024 08/29/2024 10:53 AM PREPARER MAKING DEPARTMENT documented as of this encounter Care Teams Bellows Filler Relationship Specialty Start Date End Date Payton Francisco DO [address] [place] [address] PCP - General FAMILY PRACTICE 05/12/19 01/02/20 [place] [address] [place], [place] [id number] PCP - General FAMILY PRACTICE 01/03/20 [place] [address] [place] [address] Medical Oncologist HEMATOLOGY/ONCOLOGY 02/06/23 documented as of this encounter
--- OUTSIDE RECORDS SUMMARY | 2024-11-20 18:52 | XMS_ITS | Referral Summary ---
Author Organization [facility] Address [address] [place] [address] Care Team Providers Care Senior Product Marketing Manager Name Role Phone Bong Garcia MD Primary Care Provider [phone] Allergies Active Allergy Reactions Criticality Noted Date [...] on file Legal Sex Female 1:08 PM RAW STOCK MACHINE LOADER Gender Identity Not on file Sexual Orientation Not on file Last Filed Vital Signs Vital Sign Reading Time Taken Comments Blood Pressure 118/83 08/08/2024 9:20 AM RAW STOCK MACHINE LOADER Pulse 61 08/08/2024 9:20 AM RAW STOCK MACHINE LOADER Temperature 36.2 C (97.2 F) 08/08/2024 9:20 AM RAW STOCK MACHINE LOADER Respiratory Rate 18 08/08/2024 9:20 AM RAW STOCK MACHINE LOADER Oxygen Saturation 98% 08/08/2024 9:20 AM RAW STOCK MACHINE LOADER Inhaled Oxygen Concentration - - Weight 108 kg (238 lb) 08/08/2024 9:17 AM RAW STOCK MACHINE LOADER Height 162.6 cm (5' 4 ) 08/08/2024 9:20 AM RAW STOCK MACHINE LOADER Body Mass Index 40.85 08/08/2024 9:17 AM RAW STOCK MACHINE LOADER Plan of Treatment Not on file Medical Devices Implanted Type Area Hydrometeorologist Device Identifier Shelf Expiration Date Model / Serial / Lot Ivc Filter Explanted:Qty: 1 on 01/02/2024 by Sofia Rudd MD PhD IVC Filter Left: Vena Cava Iud N/A: Uterus Insurance [facility] CHOICE PLUS [employer] BETTER [facility] Advance Directives For more information, please contact: [phone] * Full Code (Latest Code Status on File) Date Activated Date Inactivated Comments 05/21/2019 7:47 PM 05/22/2019 6:28 PM * Full Code Date Activated Date Inactivated Comments 12/11/2018 8:10 PM 12/14/2018 9:40 PM * Full Code Date Activated Date Inactivated Comments 12/10/2018 9:09 PM 12/11/2018 8:10 PM Full CPR in case of cardiopulmonary arrest Care Teams Senior Product Marketing Manager Relationship Specialty [place] [address] [place] [address] PCP - General Family Practice 02/08/23
--- OUTSIDE RECORDS SUMMARY | 2024-11-20 18:52 | XMS_ITS | Encounter Summary ---
Author Organization [facility] Address [address] [place] [address] Phone Care Team Providers Care E Mail System Administrator Name Role Phone Bong Garcia MD Primary Care Provider [phone] Payton Francisco DO Unavailable Unavailable Reason for Visit * Reason Onset Date Comments Prior Authorization 02/21/2023 Ct a/p order Encounter Details Date Type Department Care Team (Late st Contact Info) Description 02/21/2023 Telephone [facility] [address] [address] Aleks Garcia MD [address] [place] [phone] Prior Authorization (Ct a/p order) Social [...] on filedocumented in this encounter Care Teams E Mail System Administrator Relationship Specialty [place] [address] [place] [address] PCP - General Family Medicine 01/06/23 [place] [address] [place] [address] Family Medicine 01/06/23 documented as of this encounter
--- OUTSIDE RECORDS SUMMARY | 2024-11-20 18:52 | XMS_ITS | Clinical Summary ---
Author Organization [facility] Address [address] [place] [address] Phone Care Team Providers Care Corporate Communications Intern Name Role Phone Bong Garcia MD Primary Care Provider [phone] Payton Francisco DO Unavailable Unavailable Allergies No [...] age to complete this topic Insurance [id number] [place] [id number] MEDICAID AETNA [facility] Care Teams Corporate Communications Intern Relationship Specialty [place] [address] [place] [address] PCP - General Family Medicine 01/06/23 [place] [address] [place] [address] Family Medicine 01/06/23
--- OUTSIDE RECORDS SUMMARY | 2024-11-20 18:52 | XMS_ITS | Encounter Summary ---
Author Organization [facility] Address [address] [place] [address] Care Team Providers Care Freight Rate Clerk Name Role Phone Bong Garcia MD Primary Care Provider [phone] Aleks Garcia MD Unavailable [phone] Reason for Visit * Reason Onset Date Comments Allergies 11/20/[address] contrast medication Encounter Details Date Type Department Care Team (Late st Contact Info) Description 11/20/2024 Telephone [facility] Family & Internal Medicine [facility] [address] [place] [address] [place] [id number] [place] [address] Allergies (Allergic reaction to CT contrast [...] Dr. Garcia's nurse. States she was in [facility] ER, 11/19/2024 all night, DX: with a [...] can take. She is scheduled with her security sales consultant on 12/05/2024. Korina said she will most likely come to the walk in clinic a little later. Questions CB # [phone] Korina documented in this encounter Plan of Treatment Not on file documented as of this encounter Visit Diagnoses Not on filedocumented in this encounter Additional Health Concerns Assessment Noted Time PHQ-9 Depression Total Score: 0 12/14/19 24 3:43 PM CDT documented as of this encounter Care Teams Freight Rate Clerk Relationship Specialty [place] [address] [facility] [place] [address] PCP - General FAMILY PRACTICE 01/03/20 [place] [address] [facility] [place] [address] Medical Oncologist HEMATOLOGY/ONCOLOGY 02/06/23 documented as of this encounter
--- OUTSIDE RECORDS SUMMARY | 2024-11-20 18:52 | XMS_ITS | Encounter Summary ---
Author Organization [facility] Address [address] [place] [address] Care Team Providers Care Craft Coordinator Name Role Phone Payton Francisco DO Primary Care Provider [phone] Bong Garcia MD Primary Care Provider [phone] Aleks Garcia MD Unavailable [phone] Encounter Details Date Type Department Care Team (Late st Contact Info) Description 05/20/2019 Hospital Follow-up Call [facility] Telemetry Unit [address] [facility] [address] [place], [place] [id number] Cori Medrano Social History Tobacco Use Types [...] - Seasonal 05/31/2022 05/31/2022 023 12:33 AM TICKET SELLER COVID-19 Rule Out 02/02/2023 02/02/2023 02/02/2023 12:14 PM CDT COVID-19 Rule Out 08/29/2024 08/29/2024 08/29/2024 10:53 AM TICKET SELLER documented as of this encounter Care Teams Craft Coordinator Relationship Specialty Start Date End Date Payton Francisco DO [address] [place] [address] PCP - General FAMILY PRACTICE 05/12/19 01/02/20 [place] [address] [place] [address] PCP - General FAMILY PRACTICE 01/03/20 [place] [address] [place] [address] Medical Oncologist HEMATOLOGY/ONCOLOGY 02/06/23 documented as of this encounter
[2024-11-20 19:22] VITALS: BP 131/80; PULSE 68; RESP 16; O2SAT 100; O2SAT 97
--- NOTE | 2024-11-20 20:16 | ECG_ITS ---
Test Date: 2024-11-20 20:20:40 Measurements Intervals [place] Rate: 74 P: 19 [place]: 164 QRS: -11 QRSD: 88 T: 2 QT: 374 QTc: 417 Interpretive Statements SINUS RHYTHM LOW QRS VOLTAGE IN PRECORDIAL LEADS PATTERN CONSISTENT WITH PULMONARY DISEASE BORDERLINE T WAVE ABNORMALITY- ANT/INF LEADS BORDERLINE ECG Compared to ECG 11/20/2024 16:07:14 Myocardial infarct finding no longer present Electronically Signed On 11-20-2024 21:50:48 CDT by Norm Mcdaniels D.O.
[2024-11-20 20:45] LABS: Basophils Percent Auto 0.4 % (0.2-1.2); Eosinophils Percent Auto 0.3 % (0-4.4); Hematocrit 40.6 % (37.0-47.0); Hemoglobin 13.3 g/dL (12.0-15.0); Immature Granulocyte Absolute 0.04 K/mm3 (0.00-0.031); Immature Granulocyte Percent A 0.5 % (0-0.5); Lymphocytes Absolute Auto 0.99 K/mm3 (0.9-3.2); Lymphocytes Percent Auto 12.4 % (18.3-44.2); Mean Corpuscular HGB Conc 32.8 g/dl (32-36); Mean Corpuscular Volume 88.5 fl (80-100); Monocytes Absolute Auto 0.2 K/mm3 (0.1-0.6); Monocytes Percent Auto 2.6 % (2.6-8.5); Neutrophils Absolute Auto 6.7 K/mm3 (1.3-6.7); Neutrophils Percent Auto 83.8 % (45.5-73.1); Platelet Count Result 333 k/mm3 (150-375); Red Blood Count 4.59 M/mm3 (4.2-5.4); Red Cell Distribution Width 12.5 % (11.5-14.5)
[2024-11-20 20:56] LABS: Alanine Aminotransferase 24 U/L (6-35); Albumin Level 4.2 g/dL (3.5-5.1); Alkaline Phosphatase 113 U/L (38-126); Anion Gap 9 mmol/L (4-12); Aspartate Amino Transferase 16 U/L (14-36); Bilirubin,Total 0.5 mg/dL (0.2-1.3); Blood Urea Nitrogen 15 mg/dL (7-17); Calcium 8.9 mg/dL (8.4-10.2); Carbon Dioxide 21 mmol/L (22-30); Chloride 106 mmol/L (98-107); Estimated CRCL calculation 133 ml/min; Estimated Glomerular Filt Rate > 60; Glucose 152 mg/dL (65-110); Lipase 70 U/L (23-300); Potassium 4.1 mmol/L (3.4-5.0); Sodium 136 mmol/L (137-145)
[2024-11-20 21:01] LABS: INR 1.1; Prothrombin Time 14.6 Seconds (11.1-14.7)
[2024-11-20 21:02] LABS: Partial Thromboplastin Time 27.2 Seconds (22.3-36.8)
[2024-11-20 21:08] LABS: Troponin I < 0.012 ng/mL (0.000-0.034)
[2024-11-20 22:49] VITALS: BP 137/79; PULSE 76; RESP 16; TEMP 36.6; O2SAT 98
== END 2024-11-20 22:50 | disposition home or self-care (01) ==
PROVIDERS: Emergency Provider Emergency Medicine; PCP Family Medicine
DX: R07.9 Chest pain, unspecified (principal); R22.33 Localized swelling, mass and lump, upper limb, bilateral; T50.8X5A Adverse effect of diagnostic agents, initial encounter; D68.51 Activated protein C resistance; Z86.718 Personal history of other venous thrombosis and embolism; Z79.01 Long term (current) use of anticoagulants; Z79.899 Other long term (current) drug therapy; R94.31 Abnormal electrocardiogram [ECG] [EKG]
CPT/HCPCS: 36415; 71045; 80053; 83690; 84484; 85025; 85610; 85730; 93005; 94640; 99284; A9270; J7512

== ENCOUNTER 2024-11-22 00:32 | Emergency (ER) | payer SELFPAY ==
--- OUTSIDE RECORDS SUMMARY | 2024-11-22 00:35 | XMS_ITS | Encounter Summary ---
Author Organization [facility] Address [address] [place] [address] Care Team Providers Care Construction Trench Digger Name Role Phone Bong Garcia MD Primary Care Provider [phone] Aleks Garcia MD Unavailable [phone] Encounter Details Date Type Department Care Team (Latest Contact Info) Description 11/19/2024 Scan HEALTH INFO [facility] Scanned, Doc Med Group Social History Tobacco Use Types Packs/Day Years [...] Donaldson RN Active documented in this encounter Plan of Treatment Not on file documented as of this encounter Visit Diagnoses Not on filedocumented in this encounter Additional Health Concerns Assessment Noted Time PHQ-9 Depression Total Score: 0 12/14/19 24 3:43 PM CDT documented as of this encounter Care Teams Construction Trench Digger Relationship Specialty [place] [address] [place] [address] PCP - General FAMILY PRACTICE 01/03/20 [place] [address] [place] [address] Medical Oncologist HEMATOLOGY/ONCOLOGY 02/06/23 documented as of this encounter
--- OUTSIDE RECORDS SUMMARY | 2024-11-22 00:35 | XMS_ITS | Clinical Summary ---
Author Organization [facility] Address [address] [place] [address] Care Team Providers Care Sanitation Manager Name Role Phone Bong Garcia MD Primary Care Provider [phone] Aleks Garcia MD Unavailable [phone] Allergies Active Allergy Reactions Criticality Noted Date Comments Iodinated Contrast Media Swelling High 11/30/2023 Morphine Rash Medium 06/29/2023 Medications EPINEPHrine 0.3 MG/0.3ML injection INJECT NEEDED FOR ANAPHYLAXIS. NOVEMBER REPEAT. GO TO ER AFTER USING Active [...] artery without acute cor pulmonale, unspecified chronicity ([facility]) TAKE 1 TABLET BY MOUTH TWICE A [...] 02/24/2023 Vitamin D deficiency 02/19/2020 Pulmonary embolus ([facility]) 05/12/2019 Current episode of major dep ressive disorder without prior episode 01/12/2019 GDM (gestational diabetes mellitus) ([facility]) Dysfunctional uterine bleeding 12/01/2013 Depression 03/01/2013 Anxiety 05/23/2012 Resolved Problems Problem Noted Date Diagnosed Date Resolved Date Contact dermatitis 05/08/2013 1 Encounters Date Type Department Care Team Description 11/20/2024 Telephone [facility] - [place] [address] [place] [phone] Bong Garcia MD Allergies (Allergic reaction to CT contrast medication) 11/19/2024 Scan HEALTH INFO SRVCS Scanned, [facility] 11/12/[address] [phone] Bong Garcia MD Medication 11/09/2024 Results Follow-Up [address] [phone] Sandra Vaughan APRN VAGINITIS SCREEN (QUEST [id number]), MYCOPLASMA/UREAPLASM A PNL, PCR, MYCOPLASMA/UREAPLASM A PNL, PCR 11/01/2024 Orders Only [address] [phone] Sandra Vaughan APRN 11/01/2024 Orders Only [address] [phone] Bong Garcia MD 10/31/[address] [phone] Bong Garcia MD Results 10/29/2024 4:40 PM CDT Office Visit [address] [phone] Sandra Vaughan APRN Vaginal Problem (Follow up) 10/29/2024 Travel 10/24/2024 3:40 PM CDT Office Visit [address] [phone] Meseret Denton, PA UTI (For past 4 days, vaginal itching and burning-no discharge-blood when wiping, low back pain) 10/24/2024 Travel 08/29/2024 11:20 AM CROSSING GATEMAN Laboratory Only [facility] [address] [place] [address] Meseret Denton PA 08/29/2024 11:00 AM CROSSING GATEMAN Office Visit [facility] [address] [place] [address] Meseret Denton, PA Abdominal Pain (Stomach cramping, nausea x [...] COVID-19 Vaccine ( season) 2024 PHQ-2 (Physician Jackson) 07/24/2024 12/14/2023 Cervical Cancer Screening Pap Smear [...] VENOUS BLOOD VENIPUNCTURE Routine 08/29/2024 11:13 AM CROSSING GATEMAN Generalized abdominal pain LIPASE Routine 08/29/2024 11:13 AM CROSSING GATEMAN Generalized abdominal pain COMPREHENSIVE METABOLIC PANEL Routine 08/29/2024 11:13 AM CROSSING GATEMAN Generalized abdominal pain CBC W/DIFF AUTOMATED Routine 08/29/2024 11:13 AM CROSSING GATEMAN Generalized abdominal pain CORONAVIRUS (COVID-19) INFLUENZA A [...] period is included. UREAPLASMA PARVUM DNA DETECTED(A) [facility] UREAPLASMA UREALYTICUM DNA NOT DETECTED [facility] Comment: REFERENCE RANGE: NOT DETECTED Methodology: Real-Time PCR This test was developed and its analytical performance characteristics have been determined by [employer]. It has not been cleared or approved by FDA. This assay has been validated pursuant to the CLIA regulations and is used for clinical purposes. 10/29/2024 4:52 PM CDT 10/30/2024 4:30 AM CDT Narrative Resulting Agency Comment Performing Organization Information: Site ID: [id number] Name: [facility], Address: [address] [place], [place] [address] Director: Georgina Mclaughlin MD,PhD,MONROE Sandra Vaughan APRN LABORATORY Final Resu lt [facility] KEVIN SCHMIDT [address] [address], * VAGINITIS SCREEN (QUEST [id number]) (10/29/2024 4:52 PM CDT) Pathologist [facility] BACTERIAL VAGINITIS NEGATIVE NEGATIVE [facility] MAYELIN SPECIES NOT DETECTED NOT DETECTED [facility] MAYELIN GLABRATA NOT DETECTED NOT DETECTED [employer] [facility] Comment: Mayelin species C. albicans, C. tropicalis, C. parapsilosis, and/or C. dubliniensis can be detected, but not differentiated, in the Mayelin spp. result. TRICHOMONAS VAGINALIS QL NOT DETECTED NOT DETECTED [facility] CHLAMYDIA TRACHOMATIS RNA TMA NOT DETECTED NOT DETECTED [facility] N.GONORRHOEAE RNA TMA (QST) NOT DETECTED NOT DETECTED [facility] Comment: For additional information, please refer to https://education.Tk20/faq/GGR389 (This link is being provided for information/ educational purposes only.) VAGINAL STRUCTURE / Unknown 10/29/2024 4:52 PM CDT 10/30/2024 4:30 AM CDT Narrative Resulting Agency Comment Performing Organization Information: Site ID: [id number] Name: [facility] Address: [address] [place] [address] Director: Sav Loera MD Sandra Vaughan APRN MICROBIOLOGY - GENERAL ORD ERABLES Final Result Performing Organization Address City/[facility]/ZIP Co de Phone Number [facility] [employer] ROXANA [facility] [address] [facility] [place] [address], [place] * URINE BACTERIA CULTURE (10/24/2024 3:58 PM CDT) CULTURE RESULT [facility] [employer] [place], [place] Comment: CULTURE, URINE, ROUTINE Micro Number: [id number] Test Status: Final Specimen Source: Not given [...] Performing Organization Information: Site ID: [id number] Name: [facility] Address: [address] [place] [address] Director: Sav Loera Meseret MEZA MICROBIOLOGY - GENERAL ORDER MARIAM Final Result Performing Organization Address City/[facility]/ZIP Co de Phone Number [facility] [employer] [place], [place] [address] [place] [address], * (ABNORMAL) URINALYSIS AUTO DIP (10/24/2024) COLOR (U) YELLOW YELLOW MG-[address], [place] TRANSPARENCY CLEAR CLEAR MG-[address], [place] GLUCOSE (U) NEGATIVE NEGATIVE MG/DL MG-[address], [place] BILIRUBIN (U) NEGATIVE NEGATIVE MG-[address], [facility] KETONES MG/DL (U) NEGATIVE NEGATIVE MG/DL MG-[address], [facility] SPECIFIC GRAVITY (U) 1.030 1.001 - 1.035 MG-[address], [facility] BLOOD (U) SMALL (1+, Hemolyzed)(A ) NEGATIVE MG-[address], [facility] U PH 6.0 5.0 - 9.0 MG-[address], [facility] PROTEIN (U) NEGATIVE NEGATIVE mg/dL MG-[address], [facility] UROBILINOGEN 0.2 0.2 - 1.0 EU/dL = mg/dL MG-[address], [facility] NITRITES NEGATIVE NEGATIVE MG/DL MG-[address], [facility] LEUKOCYTES (U) NEGATIVE NEGATIVE MG-[address], [place] URINE SPECIMEN OBTAINED BY CLEAN CATCH PROCEDURE / Unknown 10/24/2024 us Meseret MEZA URINE ORDERABLES Final Resul t -[id number], [place] [address] [place] [address], * (ABNORMAL) COMPREHENSIVE METABOLIC PANEL (08/29/2024 11:13 AM CROSSING GATEMAN) GLUCOSE 133(H) 65 - 99 mg/dL [facility] Comment: Fasting reference interval For someone without known diabetes, a glucose value >125 mg/dL indicates that they may have diabetes and this should be confirmed with a follow-up test. BUN 11 7 - 25 mg/dL [facility] CREATININE S/P/B 0.66 0.50 - 0.97 mg/dL [employer] GFR ESTIMATE 117 > OR = 60 mL/min/1. 73m2 [facility] BUN CREATININE RATIO SEE NOTE: 6 - 22 (calc) [facility] Comment: Not Reported: BUN and Creatinine are within reference range. SODIUM S/P/B 137 135 - 146 mmol/L [facility] POTASSIUM S/P/B 4.8 3.5 - 5.3 mmol/L [employer] [facility] CHLORIDE S/P/B 103 98 - 110 mmol/L [employer] [facility] CO2 25 20 - 32 mmol/L [employer] [facility] CALCIUM S/P/B 10.0 8.6 - 10.2 mg/dL [employer] [facility] TOTAL PROTEIN S/P/B 7.8 6.1 - 8.1 g/dL [employer] [facility] ALBUMIN S/P/B 4.7 3.6 - 5.1 g/dL [employer] [facility] GLOBULIN 3.1 1.9 - 3.7 g/dL (calc) [employer] [facility] ALBUMIN/GLOBULI N RATIO 1.5 1.0 - 2.5 (calc) [employer] [facility] BILIRUBIN TOTAL S/P/B 0.5 0.2 - 1.2 mg/dL [facility] ALKALINE PHOSPHATASE S/P/B 92 31 - 125 U/L [employer] [facility] AST 10 10 - 30 U/L [employer] [facility] ALT 22 6 - 29 U/L [employer] [facility] 08/29/2024 11:1 3 AM CROSSING GATEMAN 08/30/2024 4:38 AM CROSSING GATEMAN Narrative Resulting Agency Comment Performing Organization Information: Site ID: WI Name: [facility] Address: [address] [place] [address] Director: Sav Loera MD Meseret MEZA LABORATORY Final Result KEVIN SCHM[facility]T K[facility]A ARAIZA [facility] [address] [place] [address], * (ABNORMAL) CBC W/DIFF AUTOMATED (08/29/2024 11:13 AM CROSSING GATEMAN) WBC 12.5(H) 3.8 - 10.8 Thousand/ uL [employer] [facility] RBC 5.06 3.80 - 5.10 Million/u L [employer] [facility] HGB 14.8 11.7 - 15.5 g/dL [employer] [facility] HCT 44.1 35.0 - 45.0 % [employer] [facility] MCV 87.2 80.0 - 100.0 fL [employer] [facility] MCH 29.2 27.0 - 33.0 pg [facility] MCHC 33.6 32.0 - 36.0 g/dL [facility] [...] BASOPHILS 75 0 - 200 cells/uL [facility] SEG NEUTROPHILS 87 % [facility] LYMPHOCYTES 9.5 % [facility] MONOCYTES 2.8 % [facility] EOSINOPHILS 0.1 % [facility] BASOPHILS 0.6 % [facility] 08/29/2024 11:1 3 AM CROSSING GATEMAN 08/30/2024 4:38 AM CROSSING GATEMAN Narrative Resulting Agency Comment Performing Organization Information: Site ID: [id number] Name: [facility] Address: [address] [place] [address] Director: Sav Loera MD Meseret MEZA LABORATORY Final Result [facility] [address] [address], * LIPASE (08/29/2024 11:13 AM CROSSING GATEMAN) LIPASE 17 7 - 60 U/L [employer] [facility] 08/29/2024 11:1 3 AM CROSSING GATEMAN 08/30/2024 4:38 AM CROSSING G[place]EMAN Narrative Resulting Agency Comment Performing Organization Information: Site ID: [id number] Name: [facility] Address: [address] [place] [address] Director: Sav Loera MD Meseret MEZA LABORATORY Final Result [facility] [address] [place] [address], * CORONAVIRUS (COVID-19) INFLUENZA A & B ANTIGEN IA PANEL (08/29/2024) CORONAVIRUS ANTIGEN IA NEGATIVE NEGATIVE MG-[address], [facility] IN[facility] A NEGATIVE NEGATIVE MG-[address], [facility] INFLUENZA B NEGATIVE NEGATIVE MG-[address], [place] Internal Control: VALID VALID MG-[address], [place] NASAL STRUCTURE / Unknown 08/29/2024 Meseret MEZA MICROBIOLOGY - GENERAL ORDER MARIAM Edited Result - Final Performing Organization Address City/[facility]/ZIP Co de Phone Number [phone], [place] [address] [place] [address], * HEPATITIS PANEL,ACUTE (05/25/2022 3:46 PM CDT) HAV IGM NON-REACTI VE NON-REACT MARY ANNE [facility] Comment: For additional information, please refer to http://education.Tk20/faq/EIT322 (This link is being provided for informational/ [...] a test for HCV RNA (test code 26652) is suggested. For additional information please refer to http://education.LSAT Freedom.NewsBasis/faq/AJV89k7 (This link is being provided for informational/ educational purposes only.) 05/25/2022 3:46 PM CDT 05/26/2022 12:51 PM CDT Meseret MEZA LABORATORY Final Result [facility] [address] [facility] [place] [address] * THINPREP PAP W AGE BASED SCREENING (QUEST ONLY) (12/06/2021 10:14 AM CDT) Comment: [facility] Comment: This order for age-based cervical cancer and STI screening follows ACOG guidelines(PB 168, 140, RRH118). See individual assays for performing site location. CLINICAL INFORMATION: Information not provided [facility] Clinical Information: INFORMATION NOT PROVIDED [facility] Date of Last Pap INFORMATION NOT PROVIDED [facility] Previous Biopsy? INFORMATION NOT PROVIDED [facility] SOURCE (QST) Endocervix [facility] STATEMENT OF ADEQUACY: [facility] Comment: Satisfactory for evaluation. Endocervical/transformation zone component present. Age and/or menstrual status not provided PAP INTERPRETATION/RES ULTS Negative for intraepithelial lesion or malignancy. [facility] COMMENT: This Pap test has been evaluated with computer assisted technology. [facility] BLUEPRINT CUTTER [facility] Comment: MMW, CT(ASCP) CT screening location: [place] [address] [place] [address] COMMENT: [facility] Comment: EXPLANATORY NOTE: The Pap is [...] HPV MRNA E6/E7 Not Detected Not Detected [facility] Comment: Methodology: Tool And Die Manager-Mediated Amplification This assay detects E6/E7 viral messenger RNA (mRNA) from 14 high-risk HPV types (16,18,31,33,35,39,45,51,52,56,58,59,66,68). The analytical performance characteristics of this assay have been determined by [employer]. The modifications have not been cleared or approved by the FDA. This assay has been validated pursuant to the CLIA regulations and is used for clinical purposes. For additional information, please refer to http://education.Tk20/faq/FGP091w0 (This link if provided for information/ educational purposes only.) 12/06/2021 10:1 4 AM CDT 12/06/2021 11:40 PM CDT Meseret MEZA PATHOLOGY/CYTOLOGY ORDERABLE S Final Result Performing Organization Address City/State/[facility] Co de Phone Number [facility] [address] [place] [address] [facility] [address] [place] [address] from Last 3 Months or Most Recently Relevant to Health Maintenance Insurance [facility] Advance Directives * Full Code (Latest Code Status on File) Date Activated Date Inactivated Comments 05/12/2019 7:18 PM 05/17/2019 12:38 PM Care Teams Sanitation Manager Relationship Specialty [place] [address] [place] [address] PCP - General FAMILY PRACTICE 01/03/20 [place] [address] [place] [address] Medical Oncologist HEMATOLOGY/ONCOLOGY 02/06/23
--- OUTSIDE RECORDS SUMMARY | 2024-11-22 00:35 | XMS_ITS | Clinical Summary ---
Author Organization [facility] Address [address] [place] [address] Phone Care Team Providers Care Composing Room Supervisor Name Role Phone Bong Garcia MD Primary Care Provider [phone] Payton Francisco DO Unavailable Unavailable Allergies No [...] age to complete this topic Insurance [id number] [place] [id number] MEDICAID AETNA [facility] Care Teams Composing Room Supervisor Relationship Specialty [place] [address] [place] [address] PCP - General Family Medicine 01/06/23 [place] [address] [place] [address] Family Medicine 01/06/23
--- OUTSIDE RECORDS SUMMARY | 2024-11-22 00:35 | XMS_ITS | Encounter Summary ---
Author Organization [facility] Address [address] [place] [address] Care Team Providers Care Fixed Route Operator Name Role Phone Payton Francisco DO Primary Care Provider [phone] Bong Garcia MD Primary Care Provider [phone] Aleks Garcia MD Unavailable [phone] Encounter Details Date Type Department Care Team (Late st Contact Info) Description 05/20/2019 Hospital Follow-up Call [facility] Telemetry Unit [address] [place], [place] [id number] Cori Medrano Social History Tobacco Use Types [...] - Seasonal 05/31/2022 05/31/2022 023 12:33 AM BRIDAL SERVICE SALES AND MANAGEMENT COVID-19 Rule Out 02/02/2023 02/02/2023 02/02/2023 12:14 PM CDT COVID-19 Rule Out 08/29/2024 08/29/2024 08/29/2024 10:53 AM BR[employer]AL [employer] SALES [employer] MANAGEMENT documented as of this encounter Care Teams Fixed Route Operator Relationship Specialty Start Date End Date Payton Francisco DO [address] [place] [address] PCP - General FAMILY PRACTICE 05/12/19 01/02/20 [place] [address] [place] [address] PCP - General FAMILY PRACTICE 01/03/20 [place] [address] [place] [address] Medical Oncologist HEMATOLOGY/ONCOLOGY 02/06/23 documented as of this encounter
--- OUTSIDE RECORDS SUMMARY | 2024-11-22 00:35 | XMS_ITS | Encounter Summary ---
Author Organization [facility] Address [address] [place] [address] Phone Care Team Providers Care Computer Network And Systems Engineer Name Role Phone Bong Garcia MD Primary Care Provider [phone] Payton Francisco DO Unavailable Unavailable Reason for Visit * Reason Onset Date Comments Prior Authorization 02/21/2023 Ct a/p order Encounter Details Date Type Department Care Team (Late st Contact Info) Description 02/21/2023 Telephone [facility] [address] [address] Aleks Garcia MD [address] [place] [address] Prior Authorization (Ct a/p order) Social [...] on filedocumented in this encounter Care Teams Computer Network And Systems Engineer Relationship Specialty [place] [address] [place] [address] PCP - General Family Medicine 01/06/23 [place] [address] [place] [address] Family Medicine 01/06/23 documented as of this encounter
--- OUTSIDE RECORDS SUMMARY | 2024-11-22 00:35 | XMS_ITS | Encounter Summary ---
Author Organization [facility] Address [address] [place] [address] Care Team Providers Care Electric Drill Operator Name Role Phone Payton Francisco DO Primary Care Provider [phone] Bogn Garcia MD Primary Care Provider [phone] Aleks Garcia MD Unavailable [phone] Encounter Details Date Type Department Care Team (Late st Contact Info) Description 07/01/2013 Abstract [facility] CONVERSION [address] [place], [place] [id number] , Generic Conversion, Social History Tobacco Use [...] - Seasonal 05/31/2022 05/31/2022 023 12:33 AM MOBILE DESIGNER COVID-19 Rule Out 02/02/2023 02/02/2023 02/02/2023 12:14 PM CDT COVID-19 Rule Out 08/29/2024 08/29/2024 08/29/2024 10:53 AM MOBILE DESIGNER documented as of this encounter Care Teams Electric Drill Operator Relationship Specialty Start Date End Date Payton Francisco DO [address] [place] [address] PCP - General FAMILY PRACTICE 05/12/19 01/02/20 [place] [address] [place], [place] [id number] PCP - General FAMILY PRACTICE 01/03/20 [place] [address] [place] [address] Medical Oncologist HEMATOLOGY/ONCOLOGY 02/06/23 documented as of this encounter
--- OUTSIDE RECORDS SUMMARY | 2024-11-22 00:35 | XMS_ITS | Clinical Summary ---
Author Organization [facility] Address [address] [facility] [place] [address] Care Team Providers Care Gymnastics Coach Name Role Phone Bong Garcia MD Primary Care Provider [phone] Allergies Active Allergy Reactions Criticality Noted Date [...] on file Legal Sex Female 1:08 PM PRICE CHANGER Gender Identity Not on file Sexual Orientation [...] MD Complications:Pre eclampsia, Induced Hypertension Delivery Location:[facility] Last Filed Vital Signs Vital Sign Reading Time Taken Comments Blood Pressure 118/83 08/08/2024 9:20 AM PRICE CHANGER Pulse 61 08/08/2024 9:20 AM PRICE CHANGER Temperature 36.2 C (97.2 F) 08/08/2024 9:20 AM PRICE CHANGER Respiratory Rate 18 08/08/2024 9:20 AM PRICE CHANGER Oxygen Saturation 98% 08/08/2024 9:20 AM PRICE CHANGER Inhaled Oxygen Concentration - - Weight 108 kg (238 lb) 08/08/2024 9:17 AM PRICE CHANGER Height 162.6 cm (5' 4 ) 08/08/2024 9:20 AM PRICE CHANGER Body Mass Index 40.85 08/08/2024 9:17 AM PRICE CHANGER Plan of Treatment Health Maintenance Due Date [...] this topic Medical Devices Implanted Type Area [employer] Battalion Chief Device Identifier Shelf Expiration Date Model / Serial / Lot Ivc Filter Explanted:Qty: 1 on 01/02/2024 by Sofia Rudd MD PhD IVC Filter Left: Vena Cava Iud N/A: Uterus Insurance [facility] [employer] [place] Advance Directives For more information, please contact: [phone] * Full Code (Latest Code Status on File) Date Activated Date Inactivated Comments 05/21/2019 7:47 PM 05/22/2019 6:28 PM * Full Code Date Activated Date Inactivated Comments 12/11/2018 8:10 PM 12/14/2018 9:40 PM * Full Code Date Activated Date Inactivated Comments 12/10/2018 9:09 PM 12/11/2018 8:10 PM Full CPR in case of cardiopulmonary arrest Care Teams Gymnastics Coach Relationship Specialty [place] [address] [place] [address] PCP - General Family Practice 02/08/23
--- OUTSIDE RECORDS SUMMARY | 2024-11-22 00:35 | XMS_ITS | Referral Summary ---
Author Organization [facility] Address [address] [place] [address] Care Team Providers Care Switch Maker Name Role Phone Bong Garcia MD Primary Care Provider [phone] Allergies Active Allergy Reactions Criticality Noted Date [...] on file Legal Sex Female 1:08 PM AIR SAMPLING AND MONITORING Gender Identity Not on file Sexual Orientation Not on file Last Filed Vital Signs Vital Sign Reading Time Taken Comments Blood Pressure 118/83 08/08/2024 9:20 AM AIR SAMPLING AND MONITORING Pulse 61 08/08/2024 9:20 AM AIR SAMPLING AND MONITORING Temperature 36.2 C (97.2 F) 08/08/2024 9:20 AM AIR SAMPLING AND MONITORING Respiratory Rate 18 08/08/2024 9:20 AM AIR SAMPLING AND MONITORING Oxygen Saturation 98% 08/08/2024 9:20 AM AIR SAMPLING AND MONITORING Inhaled Oxygen Concentration - - Weight 108 kg (238 lb) 08/08/2024 9:17 AM AIR SAMPLING AND MONITORING Height 162.6 cm (5' 4 ) 08/08/2024 9:20 AM AIR SAMPLING AND MONITORING Body Mass Index 40.85 08/08/2024 9:17 AM AIR SAMPLING AND MONITORING Plan of Treatment Not on file Medical Devices Implanted Type Area Center Mgr Device Identifier Shelf Expiration Date Model / Serial / Lot Ivc Filter Explanted:Qty: 1 on 01/02/2024 by Sofia Rudd MD PhD IVC Filter Left: Vena Cava Iud N/A: Uterus Insurance [facility] CHOICE [facility] HMO[facility]PPO Address: [address] [address] [place] [address] AETNA BETTER [facility] Advance Directives For more information, please contact: [phone] * Full Code (Latest Code Status on File) Date Activated Date Inactivated Comments 05/21/2019 7:47 PM 05/22/2019 6:28 PM * Full Code Date Activated Date Inactivated Comments 12/11/2018 8:10 PM 12/14/2018 9:40 PM * Full Code Date Activated Date Inactivated Comments 12/10/2018 9:09 PM 12/11/2018 8:10 PM Full CPR in case of cardiopulmonary arrest Care Teams Switch Maker Relationship Specialty [place] [address] [place] [address] PCP - General Family Practice 02/08/23
[2024-11-22 00:36] VITALS: BP 148/114; PULSE 55; RESP 16; TEMP 36.5; O2SAT 100
[2024-11-22 00:45] VITALS: PULSE 53
[2024-11-22 00:55] LABS: Basophils Absolute Auto 0.1 K/mm3 (0.0-0.1); Basophils Percent Auto 0.4 % (0.2-1.2); Eosinophils Percent Auto 0.1 % (0-4.4); Hematocrit 40.4 % (37.0-47.0); Hemoglobin 12.8 g/dL (12.0-15.0); Immature Granulocyte Absolute 0.06 K/mm3 (0.00-0.031); Immature Granulocyte Percent A 0.5 % (0-0.5); Lymphocytes Percent Auto 20.1 % (18.3-44.2); Mean Corpuscular HGB Conc 31.7 g/dl (32-36); Mean Corpuscular Hemoglobin 28.6 pg (26-34); Mean Corpuscular Volume 90.2 fl (80-100); Monocytes Absolute Auto 0.9 K/mm3 (0.1-0.6); Monocytes Percent Auto 6.8 % (2.6-8.5); Neutrophils Absolute Auto 9.3 K/mm3 (1.3-6.7); Neutrophils Percent Auto 72.1 % (45.5-73.1); Platelet Count Result 374 k/mm3 (150-375); Red Blood Count 4.48 M/mm3 (4.2-5.4); Red Cell Distribution Width 12.7 % (11.5-14.5); White Blood Count 12.9 K/mm3 (4.5-10.0)
[2024-11-22 00:59] LABS: Alanine Aminotransferase 22 U/L (6-35); Albumin Level 4.5 g/dL (3.5-5.1); Alkaline Phosphatase 82 U/L (38-126); Anion Gap 11 mmol/L (4-12); Aspartate Amino Transferase 14 U/L (14-36); Bilirubin,Total 0.5 mg/dL (0.2-1.3); Blood Urea Nitrogen 15 mg/dL (7-17); Calcium 9.7 mg/dL (8.4-10.2); Carbon Dioxide 23 mmol/L (22-30); Chloride 106 mmol/L (98-107); Estimated CRCL calculation 135 ml/min; Estimated Glomerular Filt Rate > 60; Glucose 110 mg/dL (65-110); Lipase 60 U/L (23-300); Potassium 3.7 mmol/L (3.4-5.0); Sodium 140 mmol/L (137-145)
--- OUTSIDE RECORDS SUMMARY | 2024-11-22 01:00 | XMS_ITS | Clinical Summary ---
Author Organization [facility] Address [address] [facility] [place] [address] Care Team Providers Care Adjunct Phlebotomy Instructor Name Role Phone Bong Garcia MD Primary Care Provider [phone] Allergies Active Allergy Reactions Criticality Noted Date [...] on file Legal Sex Female 1:08 PM SYNTHETIC STAPLE EXTRUDER Gender Identity Not on file Sexual Orientation Not on file Obstetrics History Para Term AB IAB SAB Ectopic Multiple Livin g Live Births 1 1 1 0 1 1 Date Outcome GA Total Labor Labor/2nd/3rd Weight Sex Type Anes PTL Sharn[place] A1 A5 Name Clin 2018 35w 4d 0h 44m 0h 40m/0h 04m 2.54 kg (5 lb 9.6 oz) F Vag-S pont Epidur al N Livin g 8 9 LUCIAN ,GIRL Tyson Dove MD Complications:Pre eclampsia, Induced Hypertension Delivery Location:This [facility] Last Filed Vital Signs Vital Sign Reading Time Taken Comments Blood Pressure 118/83 08/08/2024 9:20 AM SYNTHETIC STAPLE EXTRUDER Pulse 61 08/08/2024 9:20 AM SYNTHETIC STAPLE EXTRUDER Temperature 36.2 C (97.2 F) 08/08/2024 9:20 AM SYNTHETIC STAPLE EXTRUDER Respiratory Rate 18 08/08/2024 9:20 AM SYNTHETIC STAPLE EXTRUDER Oxygen Saturation 98% 08/08/2024 9:20 AM SYNTHETIC STAPLE EXTRUDER Inhaled Oxygen Concentration - - Weight 108 kg (238 lb) 08/08/2024 9:17 AM SYNTHETIC STAPLE EXTRUDER Height 162.6 cm (5' 4 ) 08/08/2024 9:20 AM SYNTHETIC STAPLE EXTRUDER Body Mass Index 40.85 08/08/2024 9:17 AM SYNTHETIC STAPLE EXTRUDER Plan of Treatment Health Maintenance Due Date [...] this topic Medical Devices Implanted Type Area 3Rd Grade Reading Teacher Device Identifier Shelf Expiration Date Model / Serial / Lot Ivc Filter Explanted:Qty: 1 on 01/02/2024 by Sofia Rudd MD PhD IVC Filter Left: Vena Cava Iud N/A: Uterus Insurance [facility] CHOICE PLUS [place] AETNA BETTER TH [place] Advance Directives For more information, please contact: [phone] * Full Code (Latest Code Status on File) Date Activated Date Inactivated Comments 05/21/2019 7:47 PM 05/22/2019 6:28 PM * Full Code Date Activated Date Inactivated Comments 12/11/2018 8:10 PM 12/14/2018 9:40 PM * Full Code Date Activated Date Inactivated Comments 12/10/2018 9:09 PM 12/11/2018 8:10 PM Full CPR in case of cardiopulmonary arrest Care Teams Adjunct Phlebotomy Instructor Relationship Specialty [place] [address] [place] [address] PCP - General Family Practice 02/08/23
--- OUTSIDE RECORDS SUMMARY | 2024-11-22 01:00 | XMS_ITS | Encounter Summary ---
Author Organization [facility] Address [address] [place] [address] Care Team Providers Care Rail Signal Designer Name Role Phone Payton Francisco DO Primary Care Provider [phone] Bong Garcia MD Primary Care Provider [phone] Aleks Garcia MD Unavailable [phone] Encounter Details Date Type Department Care Team (Late st Contact Info) Description 05/20/2019 Hospital Follow-up Call [facility] Telemetry Unit [address] [facility] [address] [place], [place] [id number] Cori Medrano Social History Tobacco Use Types [...] - Seasonal 05/31/2022 05/31/2022 023 12:33 AM VP BUSINESS DEVELOPMENT COVID-19 Rule Out 02/02/2023 02/02/2023 02/02/2023 12:14 PM CDT COVID-19 Rule Out 08/29/2024 08/29/2024 08/29/2024 10:53 AM VP BUSINESS DEVELOPMENT documented as of this encounter Care Teams Rail Signal Designer Relationship Specialty Start Date End Date Payton Francisco DO [address] [place] [address] PCP - General FAMILY PRACTICE 05/12/19 01/02/20 [place] [address] [place] [address] PCP - General FAMILY PRACTICE 01/03/20 [place] [address] [place] [address] Medical Oncologist HEMATOLOGY/ONCOLOGY 02/06/23 documented as of this encounter
--- OUTSIDE RECORDS SUMMARY | 2024-11-22 01:00 | XMS_ITS | Encounter Summary ---
Author Organization [facility] Address [address] [place] [address] Phone Care Team Providers Care Barbed Wire Machine Operator Name Role Phone Bong Garcia MD Primary Care Provider [phone] Payton Francisco DO Unavailable Unavailable Reason for Visit * Reason Onset Date Comments Prior Authorization 02/21/2023 Ct a/p order Encounter Details Date Type Department Care Team (Late st Contact Info) Description 02/21/2023 Telephone [facility] [address] [address] Aleks Garcia MD [address] [place] [phone] Prior Authorization (Ct a/p order) Social [...] on filedocumented in this encounter Care Teams Barbed Wire Machine Operator Relationship Specialty [place] [address] [place] [address] PCP - General Family Medicine 01/06/23 [place] [address] [place] [address] Family Medicine 01/06/23 documented as of this encounter
--- OUTSIDE RECORDS SUMMARY | 2024-11-22 01:00 | XMS_ITS | Clinical Summary ---
Author Organization [facility] Address [address] [place] [address] Phone Care Team Providers Care Music Pastor Name Role Phone Bong Garcia MD Primary Care Provider [phone] Payton Francisco DO Unavailable Unavailable Allergies No [...] age to complete this topic Insurance [id number] [place] [id number] MEDICAID AETNA [facility] Care Teams Music Pastor Relationship Specialty [place] [address] [place] [address] PCP - General Family Medicine 01/06/23 [place] [address] [place] [address] Family Medicine 01/06/23
--- OUTSIDE RECORDS SUMMARY | 2024-11-22 01:00 | XMS_ITS | Referral Summary ---
Author Organization [facility] Address [address] [place] [address] Care Team Providers Care Regional Ehs Manager Name Role Phone Bong Garcia MD Primary Care Provider [phone]- [phone] Allergies Active Allergy Reactions Criticality Noted Date [...] on file Legal Sex Female 1:08 PM DIESEL ENGINE OPERATOR Gender Identity Not on file Sexual Orientation Not on file Last Filed Vital Signs Vital Sign Reading Time Taken Comments Blood Pressure 118/83 08/08/2024 9:20 AM DIESEL ENGINE OPERATOR Pulse 61 08/08/2024 9:20 AM DIESEL ENGINE OPERATOR Temperature 36.2 C (97.2 F) 08/08/2024 9:20 AM DIESEL ENGINE OPERATOR Respiratory Rate 18 08/08/2024 9:20 AM DIESEL ENGINE OPERATOR Oxygen Saturation 98% 08/08/2024 9:20 AM DIESEL ENGINE OPERATOR Inhaled Oxygen Concentration - - Weight 108 kg (238 lb) 08/08/2024 9:17 AM DIESEL ENGINE OPERATOR Height 162.6 cm (5' 4 ) 08/08/2024 9:20 AM DIESEL ENGINE OPERATOR Body Mass Index 40.85 08/08/2024 9:17 AM DIESEL ENGINE OPERATOR Plan of Treatment Not on file Medical Devices Implanted Type Area Pictures Editor Device Identifier Shelf Expiration Date Model / Serial / Lot Ivc Filter Explanted:Qty: 1 on 01/02/2024 by Sofia Rudd MD PhD IVC Filter Left: Vena Cava Iud N/A: Uterus Insurance [facility] CHOICE PLUS AETNA [facility]TER [facility] Advance Directives For more information, please contact: [phone] * Full Code (Latest Code Status on File) Date Activated Date Inactivated Comments 05/21/2019 7:47 PM 05/22/2019 6:28 PM * Full Code Date Activated Date Inactivated Comments 12/11/2018 8:10 PM 12/14/2018 9:40 PM * Full Code Date Activated Date Inactivated Comments 12/10/2018 9:09 PM 12/11/2018 8:10 PM Full CPR in case of cardiopulmonary arrest Care Teams Regional Ehs Manager Relationship Specialty [place] [address] [place] [address] PCP - General Family Practice 02/08/23
--- OUTSIDE RECORDS SUMMARY | 2024-11-22 01:00 | XMS_ITS | Encounter Summary ---
Author Organization [facility] Address [address] [place] [address] Care Team Providers Care Field Foreman Name Role Phone Bong Garcia MD Primary Care Provider [phone] Aleks Garcia MD Unavailable [phone] Encounter Details Date Type Department Care Team [...] documented as of this encounter Care Teams Field Foreman Relationship Specialty [place] [address] [place] [address] PCP - General FAMILY PRACTICE 01/03/20 [place] [address] [place] [address] Medical Oncologist HEMATOLOGY/ONCOLOGY 02/06/23 documented as of this encounter
--- OUTSIDE RECORDS SUMMARY | 2024-11-22 01:00 | XMS_ITS | Encounter Summary ---
Author Organization [facility] Address [address] [place] [address] Care Team Providers Care Geothermal Heat Pump Machinist Name Role Phone Payton Francisco DO Primary Care Provider [phone] Bong Garcia MD Primary Care Provider [phone] Aleks Garcia MD Unavailable [phone] Encounter Details Date Type Department Care Team (Late st Contact Info) Description 07/01/2013 Abstract [facility] CONVERSION [address] [place], [place] [id number] , Generic Conversion, Social History Tobacco Use [...] - Seasonal 05/31/2022 05/31/2022 023 12:33 AM HEEL SEAT LASTER COVID-19 Rule Out 02/02/2023 02/02/2023 02/02/2023 12:14 PM CDT COVID-19 Rule Out 08/29/2024 08/29/2024 08/29/2024 10:53 AM HEEL SEAT LASTER documented as of this encounter Care Teams Geothermal Heat Pump Machinist Relationship Specialty Start Date End Date Payton Francisco DO [address] [place] [address] PCP - General FAMILY PRACTICE 05/12/19 01/02/20 [place] [address] [place], [place] [id number] PCP - General FAMILY PRACTICE 01/03/20 [place] [address] [place] [address] Medical Oncologist HEMATOLOGY/ONCOLOGY 02/06/23 documented as of this encounter
--- OUTSIDE RECORDS SUMMARY | 2024-11-22 01:00 | XMS_ITS | Clinical Summary ---
Author Organization [facility] Address [address] [place] [address] Care Team Providers Care Table Operator Name Role Phone Bong Garcia MD Primary Care Provider [phone] Aleks Garcia MD Unavailable [phone] Allergies Active Allergy Reactions Criticality Noted Date [...] artery without acute cor pulmonale, unspecified chronicity ([facility]) TAKE 1 TABLET BY MOUTH TWICE A [...] 02/24/2023 Vitamin D deficiency 02/19/2020 Pulmonary embolus ([facility]) 05/12/2019 Current episode of major dep ressive disorder without prior episode 01/12/2019 GDM (gestational diabetes mellitus) ([facility]) Dysfunctional uterine bleeding 12/01/2013 Depression 03/01/2013 Anxiety 05/23/2012 Resolved Problems Problem Noted Date Diagnosed Date Resolved Date Contact dermatitis 05/08/2013 1 Encounters Date Type Department Care Team Description 11/20/[address] [facility] - [place] [address] [place] [phone] Bong Garcia MD Allergies (Allergic reaction to CT contrast medication) 11/19/2024 Scan HEALTH INFO SRVCS Scanned, [facility] 11/12/[address] [phone] Bong Garcia MD Medication 11/09/2024 Results Follow-Up [address] [phone] Sandra Vaughan APRN VAGINITIS SCREEN (QUEST [id number]), MYCOPLASMA/UREAPLASM A PNL, PCR, MYCOPLASMA/UREAPLASM A PNL, PCR 11/01/2024 Orders Only [address] [phone] Sandra Vaughan APRN 11/01/2024 Orders Only [address] [phone] Bong Garcia MD 10/31/[address] [phone] Bong Garcia MD Results 10/29/2024 4:40 PM CDT Office Visit [address] [phone] Sandra Vaughan APRN Vaginal Problem (Follow up) 10/29/2024 Travel 10/24/2024 3:40 PM CDT Office Visit [address] [phone] Meseret Denton, PA UTI (For past 4 days, vaginal itching and burning-no discharge-blood when wiping, low back pain) 10/24/2024 Travel 08/29/2024 11:20 AM BOTTLING MACHINE OPERATOR Laboratory Only [facility] [address] [place] [phone] Meseret Denton PA 08/29/2024 11:00 AM BOTTLING MACHINE OPERATOR Office Visit [facility] [address] [place] [phone] Meseret Denton, PA Abdominal Pain (Stomach cramping, [...] COVID-19 Vaccine ( season) 2024 PHQ-2 (Physician [place]) 07/24/2024 12/14/2023 Cervical Cancer Screening Pap Smear [...] VENOUS BLOOD VENIPUNCTURE Routine 08/29/2024 11:13 AM BOTTLING MACHINE OPERATOR Generalized abdominal pain LIPASE Routine 08/29/2024 11:13 AM BOTTLING MACHINE OPERATOR Generalized abdominal pain COMPREHENSIVE METABOLIC PANEL Routine 08/29/2024 11:13 AM BOTTLING MACHINE OPERATOR Generalized abdominal pain CBC W/DIFF AUTOMATED Routine 08/29/2024 11:13 AM BOTTLING MACHINE OPERATOR Generalized abdominal pain CORONAVIRUS (COVID-19) INFLUENZA A [...] included. UREAPLASMA PARVUM DNA DETECTED(A) [facility] UREAPLASMA UREALYTICUM DNA NOT DETECTED [facility] Comment: REFERENCE RANGE: NOT DETECTED Methodology: Real-Time PCR This test was developed and its analytical performance characteristics have been determined by [employer]. It has not been cleared or approved by FDA. This assay has been validated pursuant to the CLIA regulations and is used for clinical purposes. 10/29/2024 4:52 PM CDT 10/30/2024 4:30 AM CDT Narrative Resulting Agency Comment Performing Organization Information: Site ID: [id number] Name: [facility], Address: [address] [place], [place] [address] Director: Georgina Mclaughlin MD,PhD,MONROE Sandra Vaughan APRN LABORATORY Final Resu lt [facility] KEVIN SCHMIDT [address] [address], * VAGINITIS SCREEN (QUEST [id number]) (10/29/2024 4:52 PM CDT) Pathologist [facility] BACTERIAL VAGINITIS NEGATIVE NEGATIVE [facility] MAYELIN SPECIES NOT DETECTED NOT DETECTED [facility] MAYELIN GLABRATA NOT DETECTED NOT DETECTED [facility] Comment: Mayelin species C. albicans, C. tropicalis, C. parapsilosis, and/or C. dubliniensis can be detected, but not differentiated, in the Mayelin spp. result. TRICHOMONAS VAGINALIS QL NOT DETECTED NOT DETECTED [facility] CHLAMYDIA TRACHOMATIS RNA TMA NOT DETECTED NOT DETECTED [facility] N.GONORRHOEAE RNA TMA (QST) NOT DETECTED NOT DETECTED [facility] Comment: For additional information, please refer to https://education.Zeenoh/faq/AAJ089 (This link is being provided for information/ educational purposes only.) VAGINAL STRUCTURE / Unknown 10/29/2024 4:52 PM CDT 10/30/2024 4:30 AM CDT Narrative Resulting Agency Comment Performing Organization Information: Site ID: [id number] Name: [facility] Address: [address] [place] [address] Director: Sav Loera MD Sandra Vaughan APRN MICROBIOLOGY - GENERAL ORD ERABLES Final Result Performing Organization Address City/[facility]/ZIP Co de Phone Number [facility] [address] [facility] [place] [address], [place] * URINE BACTERIA CULTURE (10/24/2024 3:58 PM CDT) CULTURE RESULT [facility] [place] [employer], [place] Comment: CULTURE, URINE, ROUTINE Micro Number: [id number] Test Status: Final Specimen Source: Not given [...] Performing Organization Information: Site ID: SL Name: [facility] Address: [address] [place] [address] Director: Sav Loera Meseret MEZA MICROBIOLOGY - GENERAL ORDER MARIAM Final Result Performing Organization Address City/[facility]/ZIP Co de Phone Number [facility] [place], [place] [address] [place] [address], * (ABNORMAL) URINALYSIS AUTO DIP (10/24/2024) COLOR (U) YELLOW YELLOW MG-[id number], [place] TRANSPARENCY CLEAR CLEAR MG-[address], [place] GLUCOSE (U) NEGATIVE NEGATIVE MG/DL MG-[address], [place] BILIRUBIN (U) NEGATIVE NEGATIVE MG-[address], [facility] [place] MG/DL (U) NEGATIVE NEGATIVE MG/DL MG-[address], [facility] SPECIFIC GRAVITY (U) 1.030 1.001 - 1.035 MG-[address], [facility] BLOOD (U) SMALL (1+, Hemolyzed)(A ) NEGATIVE MG-[address], [facility] U PH 6.0 5.0 - 9.0 MG-[address], [facility] PROTEIN (U) NEGATIVE NEGATIVE mg/dL MG-[address], [facility] UROBILINOGEN 0.2 0.2 - 1.0 EU/dL = mg/dL MG-[address], [facility] NITRITES NEGATIVE NEGATIVE MG/DL MG-[address], [facility] LEUKOCYTES (U) NEGATIVE NEGATIVE MG-[address], [place] URINE SPECIMEN OBTAINED BY CLEAN CATCH PROCEDURE / Unknown 10/24/2024 us Meseret MEZA URINE ORDERABLES Final Resul t -[id number], [place] [address] [place] [address], * (ABNORMAL) COMPREHENSIVE METABOLIC PANEL (08/29/2024 11:13 AM BOTTLING MACHINE OPERATOR) GLUCOSE 133(H) 65 - 99 mg/dL [facility] Comment: Fasting reference interval For someone without known diabetes, a glucose value >125 mg/dL indicates that they may have diabetes and this should be confirmed with a follow-up test. BUN 11 7 - 25 mg/dL [facility] CREATININE S/P/B 0.66 0.50 - 0.97 mg/dL [facility] GFR ESTIMATE 117 > OR = 60 mL/min/1. 73m2 [facility] BUN CREATININE RATIO SEE NOTE: 6 - 22 (calc) [facility] Comment: Not Reported: BUN and Creatinine are within reference range. SODIUM S/P/B 137 135 - 146 mmol/L [facility] POTASSIUM S/P/B 4.8 3.5 - 5.3 mmol/L [facility] CHLORIDE S/P/B 103 98 - 110 mmol/L [facility] CO2 25 20 - 32 mmol/L [facility] CALCIUM S/P/B 10.0 8.6 - 10.2 mg/dL [facility] TOTAL PROTEIN S/P/B 7.8 6.1 - 8.1 g/dL [facility] ALBUMIN S/P/B 4.7 3.6 - 5.1 g/dL [facility] GLOBULIN 3.1 1.9 - 3.7 g/dL (calc) [facility] ALBUMIN/GLOBULI N RATIO 1.5 1.0 - 2.5 (calc) [facility] BILIRUBIN TOTAL S/P/B 0.5 0.2 - 1.2 mg/dL [facility] ALKALINE PHOSPHATASE S/P/B 92 31 - 125 U/L [facility] AST 10 10 - 30 U/L [facility] ALT 22 6 - 29 U/L [facility] 08/29/2024 11:1 3 AM BOTTLING MACHINE OPERATOR 08/30/2024 4:38 AM BOTTLING MACHINE OPERATOR Narrative Resulting Agency Comment Performing Organization Information: Site ID: [id number] Name: [facility] Address: [address] [place] [address] Director: Sav Loera MD Meseret MEZA LABORATORY Final Result [facility] [address] [place] [place] [address], * (ABNORMAL) CBC W/DIFF AUTOMATED (08/29/2024 11:13 AM BOTTLING MACHINE OPERATOR) WBC 12.5(H) 3.8 - 10.8 Thousand/ uL [facility] RBC 5.06 3.80 - 5.10 Million/u L [facility] HGB 14.8 11.7 - 15.5 g/dL [facility] HCT 44.1 35.0 - 45.0 % [facility] MCV 87.2 80.0 - 100.0 fL [facility] MCH 29.2 27.0 - 33.0 pg [facility] [...] [facility] 08/29/2024 11:1 3 AM BOTTLING MACHINE OPERATOR 08/30/2024 4:38 AM BOTTLING MACHINE OPERATOR Narrative Resulting Agency Comment Performing Organization Information: Site ID: [id number] Name: [facility] Address: [address] [place] [address] Director: Sav Loera MD Meseret MEZA LABORATORY Final Result [facility] [address] [address], * LIPASE (08/29/2024 11:13 AM BOTTLING MACHINE OPERATOR) LIPASE 17 7 - 60 U/L [facility] 08/29/2024 11:1 3 AM BOTTLING MACHINE OPERATOR 08/30/2024 4:38 AM BOTTLING MACHINE OPERATOR Narrative Resulting Agency Comment Performing Organization Information: Site ID: [id number] Name: [facility] Address: [address] [place] [address] Director: Sav Loera MD Meseret MEZA LABORATORY Final Result [facility] [address] [place] [address], * CORONAVIRUS (COVID-19) INFLUENZA A & B ANTIGEN IA PANEL (08/29/2024) CORONAVIRUS ANTIGEN IA NEGATIVE NEGATIVE MG-[address], [facility] INFLUENZA A NEGATIVE NEGATIVE MG-[address], [facility] INFLUENZA B NEGATIVE NEGATIVE MG-[address], [place] Internal Control: VALID VALID MG-[id number], [place] NASAL STRUCTURE / Unknown 08/29/2024 Meseret MEZA MICROBIOLOGY - GENERAL ORDER MARIAM Edited Result - Final Performing Organization Address City/[facility]/ZIP Co de Phone Number [phone], [place] [address] [place] [address], * HEPATITIS PANEL,ACUTE (05/25/2022 3:46 PM CDT) HAV IGM NON-REACTI VE NON-REACT MARY ANNE [facility] Comment: For additional information, please refer to http://education.Zeenoh/faq/BLD685 (This link is being provided for informational/ [...] a test for HCV RNA (test code 10542) is suggested. For additional information please refer to http://education.[employer]/faq/CNM89y5 (This link is being provided for informational/ educational purposes only.) 05/25/2022 3:46 PM CDT 05/26/2022 12:51 PM CDT Meseret MEZA LABORATORY Final Result [facility] [address] [facility] [place] [address] * THINPREP PAP W AGE BASED SCREENING ([facility] ONLY) (12/06/2021 10:14 AM CDT) Comment: [facility] Comment: This order for age-based cervical cancer and STI screening follows ACOG guidelines(PB 168, 140, HMR588). See individual assays for performing site location. CLINICAL INFORMATION: Information not provided [facility] Clinical Information: INFORMATION NOT PROVIDED [facility] Date of Last Pap INFORMATION NOT PROVIDED [facility] Previous Biopsy? INFORMATION NOT PROVIDED [facility] SOURCE (QST) [facility] STATEMENT OF ADEQUACY: [facility] Comment: Satisfactory for evaluation. Endocervical/transformation zone component present. Age and/or menstrual status not provided PAP INTERPRETATION/RES ULTS Negative for intraepithelial lesion or malignancy. [facility] COMMENT: This Pap test has been evaluated with computer assisted technology. [facility] CIGARETTE VEND[employer] [facility] Comment: MMW, CT(ASCP) CT screening location: [place] [address] [place] [address] COMMENT: [facility] Comment: EXPLANATORY NOTE: The Pap is [...] HPV MRNA E6/E7 Not Detected Not Detected [facility] Comment: Methodology: Money Manager-Mediated Amplification This assay detects E6/E7 viral messenger RNA (mRNA) from 14 high-risk HPV types (16,18,31,33,35,39,45,51,52,56,58,59,66,68). The analytical performance characteristics of this assay have been determined by [employer]. The modifications have not been cleared or approved by the FDA. This assay has been validated pursuant to the CLIA regulations and is used for clinical purposes. For additional information, please refer to http://education.Zeenoh/faq/BBC163t5 (This link if provided for information/ educational purposes only.) 12/06/2021 10:1 4 AM CDT 12/06/2021 11:40 PM CDT Meseret MEZA PATHOLOGY/CYTOLOGY ORDERABLE S Final Result Performing Organization Address City/State/[facility] Co de Phone Number [facility] [address] [place] [address] [facility] [address] [place] [address] from Last 3 Months or Most Recently Relevant to Health Maintenance Insurance COUNT INCLUDES THE [facility] Advance Directives * Full Code (Latest Code Status on File) Date Activated Date Inactivated Comments 05/12/2019 7:18 PM 05/17/2019 12:38 PM Care Teams Table Operator Relationship Specialty [place] [address] [place] [address] PCP - General FAMILY PRACTICE 01/03/20 [place] [address] [place] [address] Medical Oncologist HEMATOLOGY/ONCOLOGY 02/06/23
--- NOTE | 2024-11-22 01:22 | ECG_ITS ---
Test Date: 2024-11-22 01:46:31 Measurements Intervals Mcdade Rate: 48 P: 8 MD: 152 QRS: -14 QRSD: 84 T: -7 QT: 420 QTc: 378 Interpretive Statements SINUS BRADYCARDIA Compared to ECG 11/20/2024 20:20:40 Sinus rhythm no longer present Myocardial infarct finding no longer present Electronically Signed On 11-22-2024 19:08:27 CDT by Ananth Casanova
--- NOTE | 2024-11-22 01:23 | ED.GENADULT ---
HPI - General Adult General Chief complaint: Unspecified Stated complaint: tingling in limbs and abd cramps Time Seen by Provider: 11/22/24 00:44 Source: patient Mode of arrival: ambulatory Limitations: no limitations History of Present Illness HPI narrative: This is a 34 year old female that presents to the ER for possible adverse reaction to Prednisone. Reports she was recently diagnosed with a DVT in the ED. She was then scanned to rule out a PE. After the contrast administration she was seen again for a possible allergic reaction. Reports she is currently taking Prednisone for this. Reports mood swings, epigastric discomfort, nausea, tingling. Related Data Allergies Allergy/AdvReac Type Severity Reaction Status Date / Time Iodinated Contrast Media Allergy Swelling Verified 11/22/24 00:34 morphine Allergy Swelling Verified 11/22/24 00:34 Review of Systems Review of Systems: All systems reviewed & are unremarkable except as noted in HPI and below Exam Narrative: GENERAL: Well-appearing, well-nourished, and in no acute distress. HEAD: Normocephalic, atraumatic. EYES: EOMI. ENT: Nares clear, no rhinorrhea or epistaxis. Mucous membranes moist. Oropharynx without tonsillar hypertrophy exudate or other lesions. CHEST: Clear to auscultation. No respiratory distress. No wheezes rales or rhonchi HEART: Regular rate and rhythm. No murmur heard. Normal peripheral pulses. ABDOMEN: Soft, nontender, nondistended, normal active bowel sounds. EXTREMITIES: Normal range of motion. No edema. SKIN: Warm, dry, no rash. NEURO: No focal deficits. Alert and oriented x3. PSYCH: Normal mood and affect Course Course Emergency Course: Patient updated on her workup agrees with plan of care Vital Signs Vital signs: Vital Signs Temperature 97.7 F 11/22/24 00:36 Pulse Rate 55 L 11/22/24 00:36 Respiratory Rate 16 11/22/24 00:36 Blood Pressure 148/114 H 11/22/24 00:36 Pulse Oximetry 100 11/22/24 00:36 Temperature 97.7 F 11/22/24 00:36 Pulse Rate 53 L 11/22/24 00:45 Respiratory Rate 16 11/22/24 00:36 Blood Pressure 148/114 H 11/22/24 00:36 Pulse Oximetry 100 11/22/24 00:36 Medical Decision Making [facility] Narrative Medical decision making narrative: Patient presents to the emergency department for multiple symptoms which she is contributing to possible reaction to prednisone. She is afebrile and nontoxic appearing. Her vitals are stable. CBC with mild leukocytosis, likely due to current steroid use. Metabolic panel without concerning findings. Lipase is normal. Urine without evidence of infection. test is negative. EKG without concerning changes. Patient updated on her workup and agrees with plan of care. Instructed to stop prednisone, follow-up with PCP. She was given warnings to return to the ER Vital Signs Vital Signs: Vital Signs Temperature 97.7 F 11/22/24 00:36 Pulse Rate 55 L 11/22/24 00:36 Respiratory Rate 16 11/22/24 00:36 Blood Pressure 148/114 H 11/22/24 00:36 Pulse Oximetry 100 11/22/24 00:36 Temperature 97.7 F 11/22/24 00:36 Pulse Rate 53 L 11/22/24 00:45 Respiratory Rate 16 11/22/24 00:36 Blood Pressure 148/114 H 11/22/24 00:36 Pulse Oximetry 100 11/22/24 00:36 Lab Data Lab results reviewed: Yes I reviewed the patient's lab results. 11/22/24 00:40 11/22/24 00:40 Labs: Lab Results 11/22/24 11/22/24 11/22/24 Range/Units 00:40 01:38 01:49 WBC 12.9 H (4.5-10.0) K/mm3 RBC 4.48 (4.2-5.4) M/mm3 Hgb 12.8 (12.0-15.0) g/dL Hct 40.4 (37.0-47.0) % MCV 90.2 (80-100) fl MCH 28.6 (26-34) pg MCHC 31.7 L (32-36) g/dl RDW 12.7 (11.5-14.5) % Plt Count 374 (150-375) k/mm3 MPV 10.0 (7.4-10.4) fl Immature Gran % (Auto) 0.5 (0-0.5) % Neut % (Auto) 72.1 (45.5-73.1) % Lymph % (Auto) 20.1 (18.3-44.2) % Amelia % (Auto) 6.8 (2.6-8.5) % Eos % (Auto) 0.1 (0-4.4) % Baso % (Auto) 0.4 (0.2-1.2) % Lymph # (Auto) 2.60 (0.9-3.2) K/mm3 Amelia # (Auto) 0.9 H (0.1-0.6) K/mm3 Eos # (Auto) 0.0 (0-0.3) K/mm3 Baso # (Auto) 0.1 (0.0-0.1) K/mm3 Abs Immat Gran (auto) 0.06 H (0.00-0.031) K/mm3 Absolute Neuts (auto) 9.3 H (1.3-6.7) K/mm3 Absolute Nucleated RBC 0.000 (0.0-0.012) K/mm3 Nucleated RBC % 0.0 (0.0-0.2) % Sodium 140 (137-145) mmol/L Potassium 3.7 (3.4-5.0) mmol/L Chloride 106 (98-107) mmol/L Carbon Dioxide 23 (22-30) mmol/L Anion Gap 11 (4-12) mmol/L BUN 15 (7-17) mg/dL Creatinine 0.59 L (0.7-1.0) mg/dL Estim Creat Clear Calc 135 ml/min Estimated GFR > 60 (59 - ) Glucose 110 (65-110) mg/dL Calcium 9.7 (8.4-10.2) mg/dL Total Bilirubin 0.5 (0.2-1.3) mg/dL AST 14 (14-36) U/L ALT 22 (6-35) U/L Alkaline Phosphatase 82 (38-126) U/L Troponin I < 0.012 (0.000-0.034) ng/mL Total Protein 8.0 (6.3-8.2) g/dL Albumin 4.5 (3.5-5.1) g/dL Lipase 60 (23-300) U/L Urine Color Yellow (Yellow) Urine Appearance Clear (Clear) Urine pH 5.5 (5.0-9.0) Ur Specific Charlo 1.024 (1.001-1.035) Urine Protein Negative (Negative) mg/dL Urine Glucose (UA) Negative (Negative) mg/dL Urine Ketones Negative (Negative) mg/dL Ur Blood (Man) Non-hemolyzed trace H (Negative) Urine Nitrate Negative (Negative) Urine Bilirubin Negative (Negative) Urine Urobilinogen 0.2 (<2.0) mg/dL Leukocyte Esterase Rfl Trace H (Negative) FRANCISCO/UL Urine RBC 0-2 (0-2) /hpf Urine WBC 0-5 (0-3) /hpf Ur Squamous Epith Cells Occasional (Few) /hpf Urine Bacteria None seen /hpf Urine Casts 0-2 POC Urine HCG, Qual Negative (Negative) ECG Data EKG #1: ECG completion date: 11/22/24 EKG Interpretation: normal rate, sinus rhythm, no ST changes and normal QT Critical Care Time Critical Care Time Critical Care Time: No Discharge Plan Discharge Clinical Impression: Adverse drug reaction Qualifiers: Encounter type: initial encounter Qualified Code(s): T50.905A - Adverse effect of unspecified drugs, medicaments and biological substances, initial encounter Patient Disposition: Home Condition: Stable Additional Instructions: Return to the emergency department if you experience fever, chest pain, shortness of breath, abdominal pain with nausea and vomiting, weakness, numbness, or any other symptoms that are concerning to you. Follow up with your primary care doctor Patient Language: Tanzanian Prescriptions: No Action acetaminophen [Tylenol Extra Strength] 500 mg tablet 1,000 mg PO Q6H PRN (Reason: pain) Qty: 50 0RF dicyclomine 20 mg tablet 20 mg PO TID Qty: 30 0RF ondansetron 4 mg tablet,disintegrating 4 mg PO Q8H PRN (Reason: nausea and vomiting) Qty: 10 0RF ibuprofen 600 mg tablet 600 mg PO TID PRN (Reason: fever or pain) Qty: 30 0RF dicyclomine 20 mg tablet 20 mg PO QID PRN (Reason: abdominal discomfort) Qty: 20 0RF ondansetron 4 mg tablet,disintegrating 4 mg PO Q8H PRN (Reason: nausea and vomiting) Qty: 10 0RF dicyclomine 20 mg tablet 20 mg PO TID Qty: 14 0RF loperamide [Anti-Diarrheal (loperamide)] 2 mg capsule 2 mg PO Q6H PRN (Reason: loose stool) Qty: 6 0RF Eliquis DVT-PE Treat 30D Start 5 mg (74 tabs) tablets,dose pack See Rx Instructions .ROUTE .COMPLEX Qty: 74 0RF Rx Instructions: orally per package directions prednisone 20 mg tablet 40 mg PO DAILY 5 Days Qty: 10 0RF famotidine 20 mg tablet 20 mg PO DAILY Qty: 5 0RF loratadine 10 mg tablet 10 mg PO DAILY Qty: 5 0RF epinephrine [EpiPen] 0.3 mg/0.3 mL auto-injector 0.3 mg IM ONCE PRN (Reason: anaphylaxis) Qty: 2 0RF Rx Instructions: as a single dose; may repeat once. Go straight to the ER after using. prednisone 20 mg tablet 40 mg PO DAILY 5 Days Qty: 10 0RF Follow-up/Referrals: Radha,Bong Wise MD [Primary Care Provider] -
[2024-11-22] MEDS: SODIUM CHLORIDE 0.9% IV 1,000 ML 999 ML IV CONT (01:24)
[2024-11-22] MEDS: LORazepam (*CRX) 0.5 MG TABLET PO (01:25)
[2024-11-22] MEDS: FAMOTIDINE 20 MG/2 ML VIAL IV PUSH (01:26)
[2024-11-22] MEDS: ONDANSETRON INJ 4 MG/2 ML VIAL IV PUSH (01:28)
[2024-11-22 01:49] LABS: Troponin I < 0.012 ng/mL (0.000-0.034)
[2024-11-22 01:50] LABS: Add Urine Microscopic? YES; Appearance Urine Clear (Clear); Bacteria Urine None Seen /hpf; Bilirubin Urine Negative (Negative); Blood Urine Non-Hemolyzed Trace (Negative); Color Urine Yellow (Yellow); Glucose Urine UA Negative (Negative); Ketones Urine Negative (Negative); Leukocyte Esterase Ur Trace LEU/UL (Negative); Nitrate Urine Negative (Negative); Non Pathogenic Casts 0-2; Protein Urine Negative (Negative); RBC Urine 0-2 /hpf (0-2); Specific Grav Ur 1.024 (1.001-1.035); Squamous Epithelial Cell Urine Occasional /hpf (Few); Urobilinogen Urine 0.2 mg/dL (<2.0); WBC Urine 0-5 /hpf (0-3); pH Urine 5.5 (5.0-9.0)
[2024-11-22 01:51] LABS: BEDSIDEPREGUCG Negative (Negative)
[2024-11-22] MEDS: diphenhydrAMINE HCl INJ 50 MG/ML VIAL 25 MG IV PUSH (03:17)
== END 2024-11-22 03:35 | disposition home or self-care (01) ==
PROVIDERS: Emergency Medicine; Emergency Provider Physician Assistant; PCP Family Medicine
DX: T38.0X5A Adverse effect of glucocorticoids and synthetic analogues, initial encounter (principal); Z86.718 Personal history of other venous thrombosis and embolism
CPT/HCPCS: 36415; 80053; 81001; 81025; 83690; 84484; 85025; 93005; 96361; 96374; 96375; 99284; A9270; J1200; J2405; J7030

== ENCOUNTER 2025-02-15 17:30 | Emergency (ER) | payer OTHER, SELFPAY ==
--- NOTE | 2025-02-15 17:33 | ED_ITS ---
HPI - Skin/Abscess/Foreign Bdy General Chief complaint: Skin/Abscess/Foreign Body Stated complaint: rash on stomach, spots on wrist Time Seen by Provider: 02/15/25 17:32 Source: patient Mode of arrival: ambulatory Limitations: no limitations History of Present Illness HPI narrative: Korina is a 34-year-old female patient presenting to the clinic today with complaints of a itchy rash to her stomach and a small spot on her left wrist x1 month. She is concerned that it may be scabies. 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 States her skin is very itchy. Has not applied any creams or taken any medications to help alleviate her symptoms. No fevers, chills, body aches. Denies any other environmental changes, medications, or foods. Related Data Allergies Allergy/AdvReac Type Severity Reaction Status Date / Time Iodinated Contrast Media Allergy Swelling Verified 02/15/25 17:45 morphine Allergy Swelling Verified 02/15/25 17:45 PMFSH Comments At the time of my signature, I reviewed and agree with the nursing past medical, surgical, social, and family history. There is no relevant family history pertinent to the patient complaint. Exam Narrative: General: Well-developed, well nourished, in no apparent distress Head: Normocephalic, atraumatic. Cardio: Regular rate and rhythm, s1 and s2 normal, no murmur appreciated. Resp: Clear to auscultation bilaterally, no rhonchi, rales, wheezing or rubs. Integumentary: [place], warm, and dry, itchy dry skin-with scratches/excoriation to the abdomen where the patient has scratched. No burrows or insect bites visualized Course Course Emergency Course: Portions of this record may have been created with voice recognition software. Level of Care: Express Care Visit Vital Signs Vital signs: Vital Signs Temperature 36.8 C 02/15/25 17:47 Pulse Rate 74 02/15/25 17:47 Respiratory Rate 16 02/15/25 17:47 Blood Pressure 127/86 02/15/25 17:47 Pulse Oximetry 100 02/15/25 17:47 Temperature 36.8 C 02/15/25 17:47 Pulse Rate 74 02/15/25 17:47 Respiratory Rate 16 02/15/25 17:47 Blood Pressure 127/86 02/15/25 17:47 Pulse Oximetry 100 02/15/25 17:47 Vital signs reviewed MDM - Skin/Abscess/Foreign Bdy MDM Narrative Medical decision making narrative: At the time of visit patient is resting comfortably on the exam table. Patient appears to be nontoxic. Complaints of a itchy rash to her stomach and a small spot on her left wrist x1 month. She is concerned that it may be scabies. 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 States her skin is very itchy. Has not tried any medications to treat her symptoms. Plan: I suspect patient has pruritus. No obvious sign of scabies infestation. Will send in triamcinolone cream for the areas that she is concerned about. Recommend moisturizing skin twice daily. Follow up with mine development engineer if symptoms persist. Supportive measures were discussed with the patient and they voiced understanding discharge instructions and agrees to treatment plan. Return precautions reviewed Differential Diagnosis Differential diagnosis: Likely abscess of skin or subcutaneous tissue, viral exanthem, dermatophytosis, urticaria, herpes zoster, allergic reaction to drug, cellulitis, eczema, insect bites, impetigo, contact dermatitis and other (Scabies, pruritus) Discharge Plan Discharge Clinical Impression: Skin pruritus Patient Disposition: Home Condition: Stable Instructions: Antibiotic Form, Itchy Skin (ED) Additional Instructions: Rash does not appear to be scabies. Apply triamcinolone cream as directed Avoid hot showers May apply moisturize in cream such as Lubriderm, Cetaphil, or Aquaphor twice daily Avoid scratching as this can cause a secondary infection May take Benadryl 25-50mg every 6 hours as needed for itching. Follow up with your PCP in 3-5 days if symptoms persist or sooner if they worsen Go to the Emergency Room if symptoms worsen- fever, rash spreading with treatment, shortness of breath, tongue swelling, drooling, or chest pain Patient Language: Cam[place]onian Prescriptions: New triamcinolone acetonide 0.1 % cream 1 applic topical BID 7 Days Qty: 30 0RF No Action acetaminophen [Tylenol Extra Strength] 500 mg tablet 1,000 mg PO Q6H PRN (Reason: pain) Qty: 50 0RF ondansetron 4 mg tablet,disintegrating 4 mg PO Q8H PRN (Reason: nausea and vomiting) Qty: 10 0RF ibuprofen 600 mg tablet 600 mg PO TID PRN (Reason: fever or pain) Qty: 30 0RF ondansetron 4 mg tablet,disintegrating 4 mg PO Q8H PRN (Reason: nausea and vomiting) Qty: 10 0RF Eliquis DVT-PE Treat 30D Start 5 mg (74 tabs) tablets,dose pack See Rx Instructions .ROUTE .COMPLEX Qty: 74 0RF Rx Instructions: orally per package directions prednisone 20 mg tablet 40 mg PO DAILY 5 Days Qty: 10 0RF loratadine 10 mg tablet 10 mg PO DAILY Qty: 5 0RF epinephrine [EpiPen] 0.3 mg/0.3 mL auto-injector 0.3 mg IM ONCE PRN (Reason: anaphylaxis) Qty: 2 0RF Rx Instructions: as a single dose; may repeat once. Go straight to the ER after using. prednisone 20 mg tablet 40 mg PO DAILY 5 Days Qty: 10 0RF Follow-up/Referrals: Radha,Bong Wise MD [Primary Care Provider] - Time of Disposition: 18:11 Quality NIHSS Nursing Documentation ED NIHSS nursing documentation: reviewed/agree
[2025-02-15 17:47] VITALS: BP 127/86; PULSE 74; RESP 16; TEMP 36.8; O2SAT 100
== END 2025-02-15 18:18 | disposition home or self-care (01) ==
PROVIDERS: Emergency Provider Nurse Practitioner Family; PCP Family Medicine
DX: L29.9 Pruritus, unspecified (principal)
CPT/HCPCS: 99213; G0463